=== PATIENT | male | born 1945 | race Caucasian/White ===

== ENCOUNTER → 2017-05-11 | Outpatient (CLI) | payer OTHER ==
[~2017-05-11] MED LIST: ESCI10TA17 PO; IBUP-1050 PO; NXM/40 PO; SIMV20TA2 PO
== END | disposition home or self-care (01) ==
LOC: C.LABSPEC 15:37
PROVIDERS: ATTEND Family Medicine
DX: Z12.11 Encounter for screening for malignant neoplasm of colon (principal)

== ENCOUNTER 2018-01-16 11:54 | Inpatient (IN) | payer OTHER ==
[~2018-01-16] VITALS: Ht 177.8 cm; Wt 79.9 kg
[2018-01-16] VITALS (17 sets, daily range): BP systolic 129–160; BP diastolic 53–83; PULSE 20–81; TEMP 36.4–37.1; O2SAT 71–100; Ht 177.8 cm; Wt 79.9 kg
[2018-01-16] MEDS ORDERED: ASPIRIN 81 MG CHEW PO STA (12:10)
[2018-01-16] MEDS ORDERED: ASPIRIN 81 MG CHEW ONE (12:10)
[2018-01-16] MEDS ORDERED: SODIUM CHLORIDE 0.9% 1000ML 500 ML IV STA (12:10)
[2018-01-16] MEDS ORDERED: NITROGLYCERIN 2% OINTMENT 30GM TUBE EXT ONE (12:15)
[2018-01-16 12:32] LABS: INR 1.2 (0.9-1.1); PTT PATIENT 26.2 SECONDS (21.0-31.0)
--- NOTE | 2018-01-16 12:34 | DIAGNOSTIC IMAGING REPORT ---
CHEST ONE VIEW PORTABLE CLINICAL HISTORY: Atypical chest pain COMPARISON STUDY: November 21, 2015 FINDINGS: The heart is at the upper limits of normal in size. There is borderline elevation of the right hemidiaphragm. There is no failure. There is no focal pulmonary consolidation. There are no pleural effusions.[ IMPRESSION: No active disease in the chest. Electronically signed by: Vahid Ross M.D. 01/16/2018 12:33 PM Dictated Date/Time: 01/16/2018 12:32 PM
[2018-01-16 12:41] LABS: ALBUMIN 3.5 gm/dl (3.4-5.0); CALCIUM 8.9 mg/dl (8.5-10.1); CREATININE 1.14 mg/dl (0.60-1.40); POTASSIUM 3.5 mmol/L (3.5-5.1)
[2018-01-16 12:42] LABS: TOTAL PROTEIN 7.9 gm/dl (6.4-8.2)
[2018-01-16 12:59] LABS: HEMATOCRIT 12.8 % (42-52); HEMOGLOBIN 4.3 g/dL (14.0-18.0); MEAN CELL VOLUME 111.3 fL (80-100); MEAN CORPUSCULAR HEMOGLOBIN 37.4 pg (25-34); MEAN CORPUSCULAR HGB CONC 33.6 g/dl (32-36); MEAN PLATELET VOLUME 9.8 fL (7.4-10.4); PLATELET COUNT 198 K/uL (130-400); RED CELL DISTRIBUTION WIDTH CV 20.3 % (11.5-14.5); RED CELL DISTRIBUTION WIDTH SD 80.1 fL (36.4-46.3); WHITE BLOOD COUNT 5.07 K/uL (4.8-10.8)
[2018-01-16] MEDS ORDERED: PANTOprazole INJ 80 MG in DEXTROSE 5% 100ML IV SCH (13:00)
[2018-01-16] MEDS ORDERED: ACETAMINOPHEN 500 MG TAB PO STA (13:07)
[2018-01-16] MEDS ORDERED: DiphenhydrAMINE HCL 50 MG/ML VIAL IV STA (13:07)
[2018-01-16] MEDS ORDERED: PANTOprazole INJ 40 MG in DEXTROSE 5% 100ML IV SCH ×2 (13:15→18:15)
[2018-01-16] MEDS ORDERED: ACETAMINOPHEN 325 MG TAB PO PRN (13:45)
[2018-01-16] MEDS ORDERED: ONDANSETRON INJ 2 MG/ML 2 ML VIAL IV PRN (13:45)
--- NOTE | 2018-01-16 14:36 | History and Physical ---
History & Physical Date & Time of Service: Jan 16, 2018 at 14:33 Chief Complaint: Pain In Chest Primary Care Physician: Carlin Dill D.O. History of Present Illness Source: patient, clinic records, hospital records Patient is a 72-year-old male with the PMH of anxiety, GERD and HLD who presents with intermittent chest pain over the past few weeks. Patient developed dry cough 3 weeks ago with associated low-grade fever. Was evaluated by urgent care last week and was told he had a URI. EKG was performed at this time and showed normal sinus rhythm without acute changes. Since then, patient has experienced SOB and lightheadedness with any type of exertion. Has also been experiencing associated chest pain with radiation down both arms. Describes pain as 9/10 in severity, sharp in character and intermittent. It goes away with rest. Denies any associated diaphoresis, nausea or vomiting. Denies any history of heart disease. In ED, patient was found to have a hemoglobin of 4.3. EKG shows ST depression in anterolateral leads, which is a new finding. Initial troponin negative. Denies any history of GI bleed. Patient thinks he has been told he has anemia in the past but is unsure. Does intermittently use Advil for MSK pain. Denies fever, chills, headache, visual changes, abdominal pain, nausea, vomiting, dysuria, melena, hematochezia or LE swelling. Follows with Dr. Dill of [facility] but is looking to establish care with [facility]. Past Medical/Surgical History Medical Problems: (1) Anxiety Status: Chronic (2) GERD (gastroesophageal reflux disease) Status: Chronic (3) HLD (hyperlipidemia) Status: Chronic Family History Diabetes mellitus Social History Smoking Status: Former Smoker Alcohol Use: occasionally Drug Use: none Marital Status: Housing status: lives with family Occupational Status: retired Immunizations History of Influenza Vaccine: Yes History of Tetanus Vaccine?: No History of Pneumococcal: No History of Hepatitis B Vaccine: Yes Allergies Coded Allergies: Cephalosporins (Verified Allergy, Unknown, CEPHALEXIN, 11/21/15) Tetanus Toxoid (Verified Allergy, Unknown, 11/21/15) Home Medications Scheduled Escitalopram (Lexapro), 10 MG PO DAILY Esomeprazole Magnesium (Nexium), 40 MG PO DAILY Simvastatin (Zocor), 20 MG PO QPM Review of Systems Ten systems reviewed and negative except as noted in the HPI. Physical Exam Vital Signs Date Time Temp Pulse Resp B/P (MAP) Pulse Ox O2 Delivery O2 Flow Rate FiO2 01/16/18 14:14 96 Room Air 01/16/18 13:09 79 18 146/67 96 Room Air 01/16/18 12:59 100 Room Air 01/16/18 12:09 92 01/16/18 12:05 95 Room Air 01/16/18 11:56 36.8 104 20 127/52 93 Room Air General Appearance: WD/WN, no apparent distress, + pertinent finding (pale) Head: normocephalic, atraumatic Eyes: normal inspection, PERRL, sclerae normal ENT: normal ENT inspection, hearing grossly normal, pharynx normal (moist mucous membranes ) Neck: supple, thyroid normal, trachea midline Respiratory/Chest: chest non-tender, lungs clear, normal breath sounds, no respiratory distress, no accessory muscle use Cardiovascular: regular rate, rhythm, no murmur, normal peripheral pulses Abdomen/GI: non tender, soft, no organomegaly Back: normal inspection Extremities/Musculoskelatal: normal inspection, no calf tenderness, no pedal edema Neurologic/Psych: no motor/sensory deficits, alert, normal mood/affect, oriented x 3 Skin: warm/dry, no rash, + pallor Diagnostics Laboratory Results Results Past 24 Hours Test 01/16/18 12:06 01/16/18 12:14 01/16/18 14:32 Range/Units White Blood Count 5.07 4.8-10.8 K/uL Red Blood Count 1.15 4.7-6.1 M/uL Hemoglobin 4.3 14.0-18.0 g/dL Hematocrit 12.8 42-52 % Mean Corpuscular Volume 111.3 80-100 fL Mean Corpuscular Hemoglobin 37.4 25-34 pg Mean Corpuscular Hemoglobin Concent 33.6 32-36 g/dl RDW Standard Deviation 80.1 36.4-46.3 fL RDW Coefficient of Variation 20.3 11.5-14.5 % Platelet Count 198 130-400 K/uL Mean Platelet Volume 9.8 7.4-10.4 fL Prothrombin Time 12.1 9.0-12.0 SECONDS Prothromb Time International Ratio 1.2 0.9-1.1 Activated Partial Thromboplast Time 26.2 21.0-31.0 SECONDS Partial Thromboplastin Ratio 1.0 Sodium Level 140 136-145 mmol/L Potassium Level 3.5 3.5-5.1 mmol/L Chloride Level 111 98-107 mmol/L Carbon Dioxide Level 23 21-32 mmol/L Anion Gap 6.0 3-11 mmol/L Blood Urea Nitrogen 23 7-18 mg/dl Creatinine 1.14 0.60-1.40 mg/dl Est Creatinine Clear Calc Drug Dose 58.7 ml/min Estimated GFR () 73.0 Estimated GFR (Non- 63.0 BUN/Creatinine Ratio 20.5 10-20 Random Glucose 143 70-99 mg/dl Calcium Level 8.9 8.5-10.1 mg/dl Magnesium Level 2.0 1.8-2.4 mg/dl Total Bilirubin 0.6 0.2-1 mg/dl Aspartate Amino Transf (AST/SGOT) 18 15-37 U/L Alanine Aminotransferase (ALT/SGPT) 17 12-78 U/L Alkaline Phosphatase 124 45-117 U/L Total Protein 7.9 6.4-8.2 gm/dl Albumin 3.5 3.4-5.0 gm/dl Globulin 4.4 2.5-4.0 gm/dl Albumin/Globulin Ratio 0.8 0.9-2 Lipase 116 73-393 U/L Bedside Troponin I < 0.030 0-0.045 ng/ml Diagnostic Radiology CXR: IMPRESSION: No active disease in the chest. EKG Sinus tachycardia. Marked ST abnormality, possible anterolateral subendocardial injury. When compared with ECG of 21-NOV-2015 09:10, ST now depressed in Anterolateral leads, T wave inversion now evident in Anterior leads, QT has lengthened Impression Assessment and Plan Patient is a 72-year-old male with the PMH of anxiety, GERD and HLD who presents with intermittent chest pain over the past few weeks. Severe anemia: -Likely 2/2 upper GI bleed, underlying macrocytic anemia -Hgb of 4.3 today. Unknown baseline hgb -Denies any known blood loss -Occasional ibuprofen use -Protonix bolus & drip -Type & crossed. Transfuse 4 units prbcs -Serial H&Hs -GI consulted -Macrocytic anemia workup in process -Clear liquid diet Chest pain: -Intermittent, present with exertion -Likely demand ischemia 2/2 profound anemia -EKG with acute anterolateral ST depression -Initial troponin negative -Trend serial cardiac enzymes -CXR without acute process -Repeat EKG in AM or with CP -Telemetry Anxiety: -Stable -Cont lexapro HLD: -Cont statin Ordered to obtain records from PCP. DVT Ppx: SCDs Code status: FULL PCP: Fuentes ([facility]) Dispo: Admit to telemetry. Plan to return home once medically stable. Patient seen in collaboration with Dr. Ibanez. Please see addendum. I have seen and examined the patient and agree with the assessment and plan as above. Shamar, DO Sinus tachycardia. Marked ST abnormality, possible anterolateral subendocardial injury. When compared with ECG of 21-NOV-2015 09:10, ST now depressed in Anterolateral leads, T wave inversion now evident in Anterior leads, QT has lengthened Advanced Directives Existing Living Will: Yes Existing Power of Primary Substance Abuse Counselor: Yes Resuscitation Status VTE Prophylaxis Will order VTE Prophylaxis: Yes
--- NOTE | 2018-01-16 15:39 | EMERGENCY ROOM VISIT NOTE ---
History Report prepared by Chantelle: Slim Smiley Under the Supervision of: Dr. Andrew Pierce M.D. First contact with patient: 12:04 Chief Complaint: CHEST PAIN Stated Complaint: PAIN IN CHEST History of Present Illness The patient is a 72 year old male who presents to the Emergency Room with complaints of intermittent chest pain beginning last week. The patient's symptoms began with a cough three weeks ago. He states that his cough has improved. He also complains of shortness of breath with exertion. The patient states that his chest pain is present with exertion. He rates his pain as a 9/ 10 in severity when present. He states that his pain often radiates down both of his arms. The patient denies black or bloody stool, fevers, vomiting, nausea , or diaphoresis. The patient's family notes the the patient appears very pale. The patient notes that he had an ECG at an urgent care center last week which was normal. He has a history of GERD and anxiety. Source of History: patient Onset: Last week Position: chest Symptom Intensity: 9/10 Timing: intermittent Modifying Factors (Worsening): exertion Associated Symptoms: + cough (x3 weeks, improving), + SOB, No fevers, No diaphoresis, No vomiting, No melena, No hematochezia Review of Systems See HPI for pertinent positives & negatives. A total of 10 systems reviewed and were otherwise negative. Past Medical & Surgical Medical Problems: (1) Anxiety (2) GERD (gastroesophageal reflux disease) (3) HLD (hyperlipidemia) (4) Hypokalemia (5) Influenza-like symptoms (6) Influenza-like symptoms Family History No significant family history Social History Smoking Status: Never Smoker Alcohol Use: occasionally Drug Use: none Marital Status: Housing Status: lives alone Occupation Status: retired Current/Historical Medications Scheduled Escitalopram (Lexapro), 10 MG PO DAILY Esomeprazole Magnesium (Nexium), 40 MG PO DAILY Simvastatin (Zocor), 20 MG PO QPM Allergies Coded Allergies: Cephalosporins (Verified Allergy, Unknown, CEPHALEXIN, 11/21/15) Tetanus Toxoid (Verified Allergy, Unknown, 11/21/15) Physical Exam Vital Signs Date Time Temp Pulse Resp B/P (MAP) Pulse Ox O2 Delivery O2 Flow Rate FiO2 01/16/18 13:09 79 18 146/67 96 Room Air 01/16/18 12:59 100 Room Air 01/16/18 12:09 92 01/16/18 12:05 95 Room Air 01/16/18 11:56 36.8 104 20 127/52 93 Room Air Physical Exam GENERAL: Patient is in no acute distress. HEENT: No acute trauma, normocephalic atraumatic, mucous membranes moist, no nasal congestion, no scleral icterus. NECK: No stridor, no adenopathy, no meningismus, trachea is midline. LUNGS: Clear to auscultation bilaterally, no wheeze, no rhonchi, breath sounds equal. HEART: Tachycardic with a regular rhythm. No murmurs. ABDOMEN: Soft, nontender, bowel sounds positive, no hernias, no peritonitis. RECTAL: Brown, Heme negative stool. EXTREMITIES: No cyanosis or edema, full range of motion of all the joints without pain or difficulty, no signs for acute trauma. NEUROLOGIC: Oriented x 3, no acute motor or sensory deficits, no focal weakness. SKIN: No rash, no jaundice, no diaphoresis. Quite pale. Medical Decision & Procedures ER Provider Diagnostic Interpretation: Radiology results as stated below per my review and radiologist interpretation: CHEST ONE VIEW PORTABLE FINDINGS: The heart is at the upper limits of normal in size. There is borderline elevation of the right hemidiaphragm. There is no failure. There is no focal pulmonary consolidation. There are no pleural effusions.[ IMPRESSION: No active disease in the chest. Electronically signed by: Vahid Ross M.D. 01/16/2018 12:33 PM Laboratory Results 01/16/18 12:06 01/16/18 12:06 Test 01/16/18 12:06 01/16/18 12:14 Red Blood Count 1.15 M/uL (4.7-6.1) Mean Corpuscular Volume 111.3 fL (80-100) Mean Corpuscular Hemoglobin 37.4 pg (25-34) Mean Corpuscular Hemoglobin Concent 33.6 g/dl (32-36) RDW Standard Deviation 80.1 fL (36.4-46.3) RDW Coefficient of Variation 20.3 % (11.5-14.5) Mean Platelet Volume 9.8 fL (7.4-10.4) Peripheral Blood Smear Path Consult Absolute Reticulocyte Count 0.01 10^6/uL (0.02-0.10) Percent Reticulocyte Count 1.1 % (0.5-2.0) Prothrombin Time 12.1 SECONDS (9.0-12.0) Prothromb Time International Ratio 1.2 (0.9-1.1) Activated Partial Thromboplast Time 26.2 SECONDS (21.0-31.0) Partial Thromboplastin Ratio 1.0 Anion Gap 6.0 mmol/L (3-11) Est Creatinine Clear Calc Drug Dose 58.7 ml/min Estimated GFR () 73.0 Estimated GFR (Non- 63.0 BUN/Creatinine Ratio 20.5 (10-20) Calcium Level 8.9 mg/dl (8.5-10.1) Magnesium Level 2.0 mg/dl (1.8-2.4) Iron Level 188 mcg/dl (35-175) Transferrin 202 mg/dl (200-360) Transferrin % Saturation 67 % (20-50) Ferritin 1143.3 ng/ml (8.0-388.0) Total Bilirubin 0.6 mg/dl (0.2-1) Aspartate Amino Transf (AST/SGOT) 18 U/L (15-37) Alanine Aminotransferase (ALT/SGPT) 17 U/L (12-78) Alkaline Phosphatase 124 U/L (45-117) Troponin I < 0.015 ng/ml (0-0.045) Total Protein 7.9 gm/dl (6.4-8.2) Albumin 3.5 gm/dl (3.4-5.0) Globulin 4.4 gm/dl (2.5-4.0) Albumin/Globulin Ratio 0.8 (0.9-2) Lipase 116 U/L (73-393) Bedside Troponin I < 0.030 ng/ml (0-0.045) Laboratory results reviewed by me. Medications Administered Medications (Trade) Dose Ordered Sig/Jesica Route Start Time Stop Time Status Last Admin Dose Admin Aspirin (Aspirin Chew) 324 mg STK-MED ONCE .ROUTE 01/16/18 12:10 01/16/18 12:11 DC 01/16/18 12:10 324 MG Sodium Chloride 500 ml @ 999 mls/hr Q31M STAT IV 01/16/18 12:10 01/16/18 12:41 DC 01/16/18 12:10 999 MLS/HR Nitroglycerin (Nitroglycerin 2% Oint) 1 inch NOW ONCE EXT 01/16/18 12:15 01/16/18 12:16 DC 01/16/18 12:16 1 INCH Pantoprazole Sodium 80 mg/ Dextrose 120 ml @ 480 mls/hr TODAY@1300 IV 01/16/18 13:00 01/16/18 13:14 DC 01/16/18 13:04 480 MLS/HR Pantoprazole Sodium 40 mg/ Dextrose 100 ml @ 20 mls/hr Q5H IV 01/16/18 13:15 01/16/18 18:14 01/16/18 13:20 20 MLS/HR Diphenhydramine HCl (Benadryl Inj) 25 mg NOW STAT IV 01/16/18 13:07 01/16/18 13:09 DC 01/16/18 13:20 25 MG Acetaminophen (Tylenol Tab) 500 mg NOW STAT PO 01/16/18 13:07 01/16/18 13:09 DC 01/16/18 13:20 500 MG ECG Per My Interpretation Indication: chest pain Rate (beats per minute): 104 Rhythm: sinus tachycardia Findings: ST depression (Anterolateral), other (No PVCs. ) Comparison ECG Date: 11/21/2015 Change: ST depressions are new. ED Course 1205: The patient was evaluated in room C12B. A complete history and physical exam was performed. 1210: Ordered Aspirin Chew 324 mg PO, Sodium Chloride 500 ml @ 999 mls/hr IV . 1215: Ordered Nitroglycerin 2% Oint 1 inch EXT. 1300: Ordered Pantoprazole Sodium 80 mg/Dextrose 120 mL @ 480 mL/hr IV. 1307: Ordered Tylenol Tab 500 mg PO, Benadryl Inj 25 mg IV. 1320: Upon reexamination the patient is resting comfortably. I discussed results and treatment plan with the patient. He verbalizes agreement and understanding. He consents to blood transfusion. I spoke with Lauren Lambert PA-C of the [facility] Hospitalist Service. We discussed the patient's results and findings. The patient will be evaluated by [facility] for further management. Medical Decision The patient is a 72 year old male who presents to the ED with complaints of chest pain. Differential diagnoses considered include anemia, GI bleed, anemia , MN, pneumonia, CHF, and PE. There is no leukocytosis. Hemoglobin is quite low at around 4. No significant electrolyte abnormality, kidney failure or hepatitis. No coagulopathy. EKG shows a sinus tachycardia with ST depressions in the anterior and lateral leads. No evidence for acute MN. Cardiac enzyme testing 1 is not consistent with acute cardiac injury. Chest film does not show pneumonia, pneumothorax or mediastinal widening. Rectal exam showed brown stool that was heme negative. Patient received IV saline, he was given oral aspirin and Nitropaste. He received IV Protonix. He was ordered for 2 units of blood to be given in the ED , 4 units of blood ordered in total. He was given oral Tylenol and IV Benadryl as premedication for the blood transfusions. The patient presents with some dyspnea and chest pain on exertion. He was quite anemic. He had EKG changes. He does require a hospital stay. He needs a blood transfusion. The reason for the anemia at this point is not clear. I did speak with the patient and the on-call hospitalist. Case management has been involved. Medication Reconcilliation Current Medication List: was personally reviewed by me Blood Pressure Screening Patient's blood pressure: Normal blood pressure Blood pressure disposition: Did not require urgent referral Consults Time Called: 1315 Consulting Physician: Lauren Norman Hospitalist Returned Call: 1320 Discussed the patient's case. The patient will be evaluated for further management. Impression Primary Impression: Precordial chest pain Additional Impressions: SOB (shortness of breath) Acute electrocardiogram changes Anemia Critical Care I have personally spent greater than 35 minutes of critical care time in the direct management of this patient. This includes bedside care, interpretation of diagnostic studies, and testing, discussion with consultants, patient, and family members, and other required patient management activities. This 35 minutes is in excess of all separately billable procedures. Scribe Attestation The scribe's documentation has been prepared under my direction and personally reviewed by me in its entirety. I confirm that the note above accurately reflects all work, treatment, procedures, and medical decision making performed by me. Departure Information Dispostion Being Evaluated By Hospitalist Referrals Carlin Dill D.O. (PCP) Patient Instructions My [facility] Problem Qualifiers
[2018-01-16 16:07] LABS: RETIC COUNT % 1.1 % (0.5-2.0)
--- NOTE | 2018-01-16 16:49 | Gastrointestinal Consultation ---
Gastrointestinal Consultation Date of Consultation: Jan 16, 2018 Attending Physician: Dr Shala Ibanez Consulting Physician: DR Mekhi Mejia Reason for Consultation: anemia, possible GI bleeding History of Present Illness Patient is a 72 year old male admitted with chief complaint of shortness of breath and chest pain. Pt with hx of anemia and had colonoscopy by DR Monalisa Guardado saw reviewing [facility] 04/2016 with 5 polyps largest 13 mm path tubular adenoma. Pt over last 2 weeks with sob and more recently cp. Came to ER and noted to have EKG changes. . NO abd pain.No melena.NO red blood in stool. NO change in bowels. Hgb today in ER 4.3 macrocytic and stool brown and heme neg in ER. He is taking Motrin once daily Past Medical/Surgical History Medical Problems: (1) Acute electrocardiogram changes Status: Acute (2) Anemia Status: Acute (3) Precordial chest pain Status: Acute (4) SOB (shortness of breath) Status: Acute Family History Diabetes mellitus Social History Smoking Status: Never Smoker Alcohol Use: occasionally Drug Use: none Marital Status: Housing Status: lives alone Occupation Status: retired Allergies Coded Allergies: Cephalosporins (Verified Allergy, Unknown, CEPHALEXIN, 11/21/15) Tetanus Toxoid (Verified Allergy, Unknown, 11/21/15) Current Medications Home Meds and Scripts Medications Dose Route/Sig Max Daily Dose Days Date Category Zocor (Simvastatin) 20 Mg Tab 20 Mg PO QPM 11/21/15 Reported Lexapro (Escitalopram Oxalate) 10 Mg Tab 10 Mg PO DAILY 11/21/15 Reported Nexium (Esomeprazole Magnesium) 40 Mg Capcr 40 Mg PO DAILY 11/21/15 Reported Review of Systems see HPI. Otherwise 10 ROS negative. Physical Exam Date Time Temp Pulse Resp B/P (MAP) Pulse Ox O2 Delivery O2 Flow Rate FiO2 01/16/18 15:32 36.8 75 16 160/83 100 01/16/18 15:11 36.8 81 16 144/64 100 01/16/18 14:56 75 95 144/65 96 01/16/18 14:41 74 18 129/61 94 01/16/18 14:36 77 18 148/53 95 01/16/18 14:14 96 Room Air 01/16/18 13:09 79 18 146/67 96 Room Air 01/16/18 12:59 100 Room Air 01/16/18 12:09 92 01/16/18 12:05 95 Room Air 01/16/18 11:56 36.8 104 20 127/52 93 Room Air General Appearance: WD/WN, no apparent distress Eyes: normal inspection, PERRL ENT: hearing grossly normal, pharynx normal Neck: supple, trachea midline Respiratory/Chest: lungs clear, no respiratory distress Cardiovascular: regular rate, rhythm, no edema Abdomen: normal bowel sounds, non tender, soft, no organomegaly Neurologic/Psych: broadcast meteorologist II-XII nml as tested, normal mood/affect, oriented x 3 Skin: normal color Laboratory Results Last 24 Hours Test 01/16/18 12:06 01/16/18 12:14 01/16/18 14:45 White Blood Count 5.07 K/uL Red Blood Count 1.15 M/uL Hemoglobin 4.3 g/dL Hematocrit 12.8 % Mean Corpuscular Volume 111.3 fL Mean Corpuscular Hemoglobin 37.4 pg Mean Corpuscular Hemoglobin Concent 33.6 g/dl RDW Standard Deviation 80.1 fL RDW Coefficient of Variation 20.3 % Platelet Count 198 K/uL Mean Platelet Volume 9.8 fL Absolute Reticulocyte Count 0.01 10^6/uL Percent Reticulocyte Count 1.1 % Prothrombin Time 12.1 SECONDS Prothromb Time International Ratio 1.2 Activated Partial Thromboplast Time 26.2 SECONDS Partial Thromboplastin Ratio 1.0 Sodium Level 140 mmol/L Potassium Level 3.5 mmol/L Chloride Level 111 mmol/L Carbon Dioxide Level 23 mmol/L Anion Gap 6.0 mmol/L Blood Urea Nitrogen 23 mg/dl Creatinine 1.14 mg/dl Est Creatinine Clear Calc Drug Dose 58.7 ml/min Estimated GFR () 73.0 Estimated GFR (Non- 63.0 BUN/Creatinine Ratio 20.5 Random Glucose 143 mg/dl Calcium Level 8.9 mg/dl Magnesium Level 2.0 mg/dl Total Bilirubin 0.6 mg/dl Aspartate Amino Transf (AST/SGOT) 18 U/L Alanine Aminotransferase (ALT/SGPT) 17 U/L Alkaline Phosphatase 124 U/L Troponin I < 0.015 ng/ml Total Protein 7.9 gm/dl Albumin 3.5 gm/dl Globulin 4.4 gm/dl Albumin/Globulin Ratio 0.8 Lipase 116 U/L Bedside Troponin I < 0.030 ng/ml Impression Macrocytic anemia hx of tubular adenoma colon polyps last colo 04/2016 elevated alk phos mild--follow. Pt with no active bleeding at present so no need for protonix drip. Will give po protonix since taking Motrin and could have PUD. Needs blood rescuscitated and ruled out for PA. If his anemia were from slow GI blood loss which it would need to be to have no signs of bloody or black stools then MCV should be low with low Fe sat and ferritin. Fe sat and ferritin added to blood drawn today prior to transfusion. B12 and folate ordered. NO immediate plans for endscopy until cardiac status is stable and see what Fe studies show.
[2018-01-16] MEDS: SIMVASTATIN 20 MG TAB PO SCH (20:21)
[2018-01-16] MEDS ORDERED: NURSING VERBAL MED ORDER ONE (23:00)
[2018-01-16] MEDS ORDERED: COUGH DROP (SUGAR FREE) LOZ 24 LOZ/1 BOX LOZ PRN (23:00)
[2018-01-17] VITALS (17 sets, daily range): BP systolic 118–146; BP diastolic 61–92; PULSE 65–91; TEMP 36.5–37; O2SAT 92–100
[2018-01-17 05:09] LABS: ALBUMIN 3.1 gm/dl (3.4-5.0); CALCIUM 8.2 mg/dl (8.5-10.1); CREATININE 1.02 mg/dl (0.60-1.40); POTASSIUM 3.5 mmol/L (3.5-5.1)
[2018-01-17 05:12] LABS: TOTAL PROTEIN 6.9 gm/dl (6.4-8.2)
[2018-01-17 05:16] LABS: HEMATOCRIT 20.2 % (42-52); HEMOGLOBIN 6.8 g/dL (14.0-18.0); MEAN CELL VOLUME 96.2 fL (80-100); MEAN CORPUSCULAR HEMOGLOBIN 32.4 pg (25-34); MEAN CORPUSCULAR HGB CONC 33.7 g/dl (32-36); MEAN PLATELET VOLUME 9.7 fL (7.4-10.4); PLATELET COUNT 146 K/uL (130-400); RED CELL DISTRIBUTION WIDTH CV 22.4 % (11.5-14.5); WHITE BLOOD COUNT 3.67 K/uL (4.8-10.8)
[2018-01-17 05:31] LABS: BASO % 0.3 %; BASO ABS # 0.01 K/uL (0-0.2); EOS % 1.4 %; EOS ABS # 0.05 K/uL (0-0.5); IG# 0.18 K/uL (0.00-0.02); LYMPH % 21.3 %; LYMPH ABS # 0.78 K/uL (1.2-3.4); MONO ABS # 0.77 K/uL (0.11-0.59); NEUT % 51.1 %; NEUT ABS # 1.88 K/uL (1.4-6.5)
[2018-01-17] MEDS: PANTOprazole SOD 40 MG TAB PO SCH (08:46)
[2018-01-17] MEDS: ESCITALOPRAM OXALATE 10 MG TAB PO SCH (08:46)
--- NOTE | 2018-01-17 09:10 | Progress Note ---
Internal Med Progress Note Date of Service: Jan 17, 2018. Provider Documentation: SUBJECTIVE: Seen and examined at bedside Denies any chest pain, SOB, dizziness, nausea, abdominal pain Denies any bleeding issues, black stools No other complaints OBJECTIVE: Vital Signs-as noted below Physical Exam: General Appearance:Moderately built and nourished, no apparent distress Head: normocephalic, Atraumatic Eyes: normal inspection, EOMI, PERRL Neck: supple, Trachea midline Respiratory/Chest: Normal breath sounds, CTA Cardiovascular: S1, S2, No murmur Abdomen/GI:Soft, Non tender, Bowel sounds present Extremities/Musculoskelatal:normal inspection, no edema Neurologic/Psych:AAOX3, grossly no focal neurological deficits Skin: normal color, warm Lab data as noted below. ASSESSMENT & PLAN: Patient is a 72 yr male with the PMH of anxiety, GERD and HLD who presents with intermittent chest pain over the past few weeks. Severe macrocytic anemia: No obvious source of bleeding Hb: 6.8 today S/P 4 units PRBCs Occasional ibuprofen use Continue Protonix Monitor H&H GI following Avoid NSAIDs B12, Folate levels normal Ferritin high Will consult Oncology May need Bone marrow biopsy to R/O MDS Atypical Chest pain: Intermittent, present with exertion Likely demand ischemia 2/2 profound anemia Presented with anterolateral ST depression EKG changes normalized Troponin X3: Negative No chest pain currently Check ECHO Cardiology consulted Anxiety: Stable Continue lexapro HLD: Continue statin DVT Px: SCDs Code status: Full Code Disposition: Monitor in Telemetry Vital Signs: Date Time Temp Pulse Resp B/P (MAP) Pulse Ox O2 Delivery O2 Flow Rate FiO2 01/17/18 07:07 36.8 73 20 142/92 (109) 93 Room Air 01/17/18 06:47 36.7 73 16 136/69 98 01/17/18 06:38 36.9 91 18 119/70 94 01/17/18 04:00 Room Air 01/17/18 02:29 16 142/82 96 01/17/18 02:04 36.9 74 18 142/82 92 01/17/18 00:45 36.9 71 16 138/66 92 01/17/18 00:15 37.0 72 18 143/68 92 01/17/18 00:01 73 143/72 01/17/18 00:01 Room Air 01/16/18 23:52 36.9 74 16 155/73 92 01/16/18 23:38 37.1 20 20 155/73 (100) 93 Room Air 01/16/18 22:04 36.7 70 16 138/66 94 01/16/18 21:43 36.8 01/16/18 21:35 16 151/79 71 01/16/18 20:32 36.8 73 16 146/75 98 01/16/18 20:00 Room Air 01/16/18 19:30 36.4 71 18 143/69 94 01/16/18 19:00 36.7 69 18 152/66 95 01/16/18 18:27 36.8 77 16 155/64 97 01/16/18 18:12 36.8 78 16 149/65 96 01/16/18 16:02 36.9 76 16 144/80 96 01/16/18 15:32 36.8 75 16 160/83 100 01/16/18 15:11 36.8 81 16 144/64 100 01/16/18 14:56 75 95 144/65 96 01/16/18 14:41 74 18 129/61 94 01/16/18 14:36 77 18 148/53 95 01/16/18 14:14 96 Room Air 01/16/18 13:09 79 18 146/67 96 Room Air 01/16/18 12:59 100 Room Air 01/16/18 12:09 92 01/16/18 12:05 95 Room Air 01/16/18 11:56 36.8 104 20 127/52 93 Room Air Lab Results: Results Past 24 Hours Test 01/16/18 12:06 01/16/18 12:14 01/16/18 18:08 01/16/18 22:52 Range/Units White Blood Count 5.07 4.8-10.8 K/uL Red Blood Count 1.15 4.7-6.1 M/uL Hemoglobin 4.3 14.0-18.0 g/dL Hematocrit 12.8 42-52 % Mean Corpuscular Volume 111.3 80-100 fL Mean Corpuscular Hemoglobin 37.4 25-34 pg Mean Corpuscular Hemoglobin Concent 33.6 32-36 g/dl RDW Standard Deviation 80.1 36.4-46.3 fL RDW Coefficient of Variation 20.3 11.5-14.5 % Platelet Count 198 130-400 K/uL Mean Platelet Volume 9.8 7.4-10.4 fL Peripheral Blood Smear Path Consult Absolute Reticulocyte Count 0.01 0.02-0.10 10^6/uL Percent Reticulocyte Count 1.1 0.5-2.0 % Prothrombin Time 12.1 9.0-12.0 SECONDS Prothromb Time International Ratio 1.2 0.9-1.1 Activated Partial Thromboplast Time 26.2 21.0-31.0 SECONDS Partial Thromboplastin Ratio 1.0 Sodium Level 140 136-145 mmol/L Potassium Level 3.5 3.5-5.1 mmol/L Chloride Level 111 98-107 mmol/L Carbon Dioxide Level 23 21-32 mmol/L Anion Gap 6.0 3-11 mmol/L Blood Urea Nitrogen 23 7-18 mg/dl Creatinine 1.14 0.60-1.40 mg/dl Est Creatinine Clear Calc Drug Dose 58.7 ml/min Estimated GFR () 73.0 Estimated GFR (Non- 63.0 BUN/Creatinine Ratio 20.5 10-20 Random Glucose 143 70-99 mg/dl Calcium Level 8.9 8.5-10.1 mg/dl Magnesium Level 2.0 1.8-2.4 mg/dl Iron Level 188 35-175 mcg/dl Transferrin 202 200-360 mg/dl Transferrin % Saturation 67 20-50 % Ferritin 1143.3 8.0-388.0 ng/ml Total Bilirubin 0.6 0.2-1 mg/dl Aspartate Amino Transf (AST/SGOT) 18 15-37 U/L Alanine Aminotransferase (ALT/SGPT) 17 12-78 U/L Alkaline Phosphatase 124 45-117 U/L Troponin I < 0.015 < 0.015 0-0.045 ng/ml Total Protein 7.9 6.4-8.2 gm/dl Albumin 3.5 3.4-5.0 gm/dl Globulin 4.4 2.5-4.0 gm/dl Albumin/Globulin Ratio 0.8 0.9-2 Lipase 116 73-393 U/L Bedside Troponin I < 0.030 0-0.045 ng/ml Vitamin B12 Level 479 211-911 pg/mL Folate 8.17 >5.38 ng/mL Test 01/17/18 04:20 01/17/18 08:51 Range/Units White Blood Count 3.67 4.8-10.8 K/uL Red Blood Count 2.10 4.7-6.1 M/uL Hemoglobin 6.8 14.0-18.0 g/dL Hematocrit 20.2 42-52 % Mean Corpuscular Volume 96.2 80-100 fL Mean Corpuscular Hemoglobin 32.4 25-34 pg Mean Corpuscular Hemoglobin Concent 33.7 32-36 g/dl Platelet Count 146 130-400 K/uL Mean Platelet Volume 9.7 7.4-10.4 fL Neutrophils (%) (Auto) 51.1 % Lymphocytes (%) (Auto) 21.3 % Monocytes (%) (Auto) 21.0 % Eosinophils (%) (Auto) 1.4 % Basophils (%) (Auto) 0.3 % Neutrophils # (Auto) 1.88 1.4-6.5 K/uL Lymphocytes # (Auto) 0.78 1.2-3.4 K/uL Monocytes # (Auto) 0.77 0.11-0.59 K/uL Eosinophils # (Auto) 0.05 0-0.5 K/uL Basophils # (Auto) 0.01 0-0.2 K/uL RDW Standard Deviation 75.0 36.4-46.3 fL RDW Coefficient of Variation 22.4 11.5-14.5 % Immature Granulocyte % (Auto) 4.9 % Immature Granulocyte # (Auto) 0.18 0.00-0.02 K/uL Large Platelets 1+ Anisocytosis PRESENT Sodium Level 139 136-145 mmol/L Potassium Level 3.5 3.5-5.1 mmol/L Chloride Level 111 98-107 mmol/L Carbon Dioxide Level 24 21-32 mmol/L Anion Gap 4.0 3-11 mmol/L Blood Urea Nitrogen 15 7-18 mg/dl Creatinine 1.02 0.60-1.40 mg/dl Est Creatinine Clear Calc Drug Dose 65.6 ml/min Estimated GFR () 83.5 Estimated GFR (Non- 72.1 BUN/Creatinine Ratio 14.6 10-20 Random Glucose 107 70-99 mg/dl Calcium Level 8.2 8.5-10.1 mg/dl Magnesium Level 1.8 1.8-2.4 mg/dl Total Bilirubin 0.8 0.2-1 mg/dl Aspartate Amino Transf (AST/SGOT) 20 15-37 U/L Alanine Aminotransferase (ALT/SGPT) 17 12-78 U/L Alkaline Phosphatase 105 45-117 U/L Troponin I 0.020 0-0.045 ng/ml Total Protein 6.9 6.4-8.2 gm/dl Albumin 3.1 3.4-5.0 gm/dl Globulin 3.8 2.5-4.0 gm/dl Albumin/Globulin Ratio 0.8 0.9-2
[2018-01-17] MEDS ORDERED: FUROSEMIDE INJ 10 MG in SYRINGE 0 ML IV SCH (09:45)
[2018-01-17] MEDS ORDERED: METOPROLOL TARTRATE 25 MG TAB PO ONE (09:45)
--- NOTE | 2018-01-17 10:36 | ECHOCARDIOGRAM REPORT ---
*NOTICE TO RECEIVING LIBERTARIAN AGENCY This information is strictly Confidential and protected under [place] law. [place] law prohibits you from making any further disclosure of this information unless further disclosure is expressly permitted by the written consent of the person to whom it pertains or is authorized by law. A general authorization for the release of medical or other information is not sufficient for this purpose. Hospital accepts no responsibility if the information is made available to any other person, INCLUDING THE PATIENT. Interpretation Summary * Name: AGUSTINA BROOKS Study Date: 01/17/2018 09:46 AM BP: 142/92 mmHg * Patient Location: C.2E\S\E204\S\1 HR: 75 * : 1945 (M/d/yyyy) Gender: Male Height: 70 in * Age: 72 yrs Ethnicity: CA Weight: 178 lb * Ordering Physician: Mingo Giordano * Referring Physician: Self, Referred * Performed By: Faina Crouch RCS * * Reason For Study: S-T CHANGES ON INITIAL EKG * BSA: 2.0 m2 * -- Conclusions -- * The left ventricle is normal in size. * There is normal left ventricular wall thickness. * The left ventricular wall motion is normal. * Left ventricular systolic function is normal. * Ejection Fraction = 60-65%. * Aortic valve sclerosis mild, without significant aortic valvular stenosis. * There is mild to moderate mitral regurgitation. * There is trace tricuspid regurgitation. * Right ventricular systolic pressure is elevated at 40-50mmHg. Procedure Details * A complete two-dimensional transthoracic echocardiogram was performed (2D, M-mode, Doppler and color flow Doppler). Left Ventricle * The left ventricle is normal in size. * There is normal left ventricular wall thickness. * Left ventricular systolic function is normal. * Ejection Fraction = 60-65%. * The left ventricular wall motion is normal. Right Ventricle * The right ventricle is normal in size and function. Atria * The left atrium is borderline dilated. * Right atrial size is normal. * No ASD detected; PFO is not assessed. Mitral Valve * The mitral valve anatomy is normal. * There is no mitral valve stenosis. * There is mild to moderate mitral regurgitation. Tricuspid Valve * The tricuspid valve anatomy is normal. * There is no tricuspid stenosis. * There is trace tricuspid regurgitation. * Right ventricular systolic pressure is elevated at 40-50mmHg. Aortic Valve * The aortic valve is trileaflet. * Aortic valve sclerosis mild, without significant aortic valvular stenosis. * No aortic regurgitation is present. Pulmonic Valve * The pulmonic valve is not well visualized. Great Vessels * The aortic root is normal size. Pericardium/Pleural * There is no pericardial effusion. Great Vessels * The inferior vena cava is mildly dilated. MMode 2D Measurements and Calculations IVSd 1.2 cm IVSs 1.6 cm LVIDd 4.9 cm LVIDs 3.4 cm LVPWd 1.1 cm LVPWs 1.4 cm IVS/LVPW 1.2 FS 32.1 % EDV(Teich) 115.0 ml ESV(Teich) 45.9 ml EF(Teich) 60.1 % EDV(cubed) 120.6 ml ESV(cubed) 37.7 ml EF(cubed) 68.8 % % IVS thick 24.7 % % LVPW thick 27.0 % LV mass(C)d 217.8 grams LV mass(C)dI 109.7 grams/m\S\2 LV mass(C)s 173.5 grams LV mass(C)sI 87.3 grams/m\S\2 SV(Teich) 69.2 ml SI(Teich) 34.8 ml/m\S\2 SV(cubed) 82.9 ml SI(cubed) 41.8 ml/m\S\2 Ao root diam 3.2 cm Ao root area 7.8 cm\S\2 ACS 1.7 cm LA dimension 4.4 cm LA/Ao 1.4 LVOT diam 2.0 cm LVOT area 3.2 cm\S\2 LVAd ap4 29.2 cm\S\2 LVLd ap4 7.5 cm EDV(MOD-sp4) 92.1 ml EDV(sp4-el) 96.6 ml LVAs ap4 19.0 cm\S\2 LVLs ap4 6.7 cm ESV(MOD-sp4) 44.6 ml ESV(sp4-el) 45.7 ml EF(MOD-sp4) 51.6 % EF(sp4-el) 52.7 % LVAd ap2 40.7 cm\S\2 LVLd ap2 9.1 cm EDV(MOD-sp2) 148.4 ml EDV(sp2-el) 154.8 ml LVAs ap2 23.8 cm\S\2 LVLs ap2 6.9 cm ESV(MOD-sp2) 67.0 ml ESV(sp2-el) 69.8 ml EF(MOD-sp2) 54.8 % EF(sp2-el) 54.9 % LVLd %diff 17.5 % EDV(MOD-bp) 128.2 ml LVLs %diff 2.5 % ESV(MOD-bp) 55.4 ml EF(MOD-bp) 56.8 % SV(MOD-sp4) 47.5 ml SI(MOD-sp4) 23.9 ml/m\S\2 SV(MOD-sp2) 81.4 ml SI(MOD-sp2) 41.0 ml/m\S\2 SV(MOD-bp) 72.8 ml SI(MOD-bp) 36.6 ml/m\S\2 SV(sp4-el) 50.9 ml SI(sp4-el) 25.6 ml/m\S\2 SV(sp2-el) 84.9 ml SI(sp2-el) 42.8 ml/m\S\2 Doppler Measurements and Calculations MV E max matthew 69.2 cm/sec MV A max matthew 33.3 cm/sec MV E/A 2.1 MV P1/2t max matthew 142.3 cm/sec MV P1/2t 55.4 msec MVA(P1/2t) 4.0 cm\S\2 MV dec slope 752.3 cm/sec\S\2 MV dec time 0.23 sec Ao V2 max 140.8 cm/sec Ao max PG 7.9 mmHg Ao max PG (full) 4.0 mmHg [place](V,A) 2.2 cm\S\2 [place](V,D) 2.2 cm\S\2 LV V1 max PG 4.0 mmHg LV V1 max 99.4 cm/sec MR max matthew 464.4 cm/sec MR max PG 86.8 mmHg PA V2 max 101.9 cm/sec PA max PG 4.2 mmHg PI max matthew 185.8 cm/sec PI max PG 13.8 mmHg PI dec slope 313.3 cm/sec\S\2 PI P1/2t 173.7 msec TR max matthew 312.7 cm/sec
--- NOTE | 2018-01-17 12:55 | CARDIOLOGY CONSULTATION ---
DATE OF CONSULTATION: 01/17/2018 REFERRING PHYSICIAN: Dr. Ibanez. PRIMARY CARE PHYSICIAN: Dr. Dill. INDICATIONS: Profound anemia, EKG changes. HISTORY OF PRESENT ILLNESS: The patient is a 72-year-old male without prior cardiac disease. He denies any significant risk factors. He is on medication for depression and hyperlipidemia with good lipid control. Denies prior history of hypertension or diabetes or familial history of heart disease. The patient presents this admission noting approximately 1 month history of exertional fatigue as well as chest discomfort. Symptoms are described as a dry cough initially with low grade fever approximately 3 weeks ago, then been experiencing symptoms of intermittent substernal pressure and shortness of breath. He notes symptoms have gradually worsened, but notes 1 week ago having walked several miles around [facility] in association with opening of with general good tolerance but last week; however, symptoms have progressed substantially to the point of marked limitation. He presented to the Emergency Room last evening where he was found to be profoundly anemic with hemoglobin of 4.[address] segment changes on EKG. Symptoms described as a sharp substernal pain, intermittent. Notes no fevers or chills recently other than as noted approximately 3 weeks ago. Notes no rash or arthritic complaint. Notes no prior history of anemia, has undergone colonoscopy in the last 2 years' time with benign polyps noted. He uses intermittent Advil very rarely. Notes no headache or visual changes. Notes no orthopnea, PND or peripheral edema. Notes no prior history of angina, congestive heart failure, renal or hepatic disease. Denies history of TIA or stroke. REVIEW OF SYSTEMS: Otherwise negative. ALLERGIES: NOTED TO BE CEPHALOSPORINS AND TETANUS. MEDICATIONS: Prior to hospitalization were Lexapro 10 mg daily, Nexium 40 mg p.o. daily, and Zocor 20 mg p.o. daily. PAST SURGICAL HISTORY: Notable for hernia repair. FAMILY HISTORY: Notable for diabetes. Mother is alive at age 97. Father at age 70 but no prior history of cardiac disease. SOCIAL HISTORY: The patient is retired from [employer]. He is a nonsmoker, uses very rare alcoholic beverages, none to excess with substantial reduction in alcohol use over the last 10 years per patient. Exercise capacity has generally been good until recent complaints. PHYSICAL EXAMINATION: VITAL SIGNS: Heart rate 73, blood pressure is 142/92, O2 saturations 93% on room air. HEENT: Normocephalic and atraumatic. Nares without discharge. Throat was clear. NECK: Supple without thyromegaly, lymphadenopathy, JVD. LUNGS: Reveal crackles bibasilar. CARDIOVASCULAR: Regular with crisp S1, S2. There is no murmur or rub. PMI is nondisplaced. ABDOMEN: Soft, nontender. There is no hepatojugular reflux. EXTREMITIES: Without cyanosis or clubbing. There is no peripheral edema. There are intact distal pulses 2+/4. There is no brachial femoral delay. NEUROLOGIC: The patient is alert, answering questions appropriately. LABORATORY DATA: As noted, on presentation, white cell count was 5.0, RBCs were 1.1, hemoglobin was 4.3, MCV of 111. Sodium was 140, potassium 3.5, chloride 111, bicarbonate 23, BUN 23, creatinine 1.1. Iron studies were notable for elevated levels. AST and ALT were normal. Albumin level was 3.5. TSH was pending. B12 and folate levels were normal. Coag levels were essentially normal. Chest x-ray revealed no infiltrate or edema. EKG on initial presentation demonstrated sinus tachycardia, rate of [address] depression anterolaterally with normalization on rate control and transfusion. EKG this morning demonstrates sinus rhythm with incomplete right bundle branch block, minor nonspecific ST segment changes, resolved prior anterolateral ischemic findings. Laboratory studies included negative troponins x3. Echocardiogram is pending. Serum globulin level is mildly elevated as is alkaline phosphatase. Peripheral smear analysis earlier, this is listed on the chart, not suggestive of hemolysis per report. IMPRESSION: A 72-year-old male presents with symptoms of weakness, fatigue, and intermittent chest pressure with profound anemia identified. EKGs reflect significant ischemic changes initially which have resolved without evidence of myocardial injury or infarct. Findings may reflect demand-based changes secondary to profound anemia versus unmasked coronary artery disease due to above. Troponins do not reflect injury. Echocardiogram will be reviewed. The patient is now receiving his fifth unit of blood; would go caution with further transfusions. Given current asymptomatic state and normalization of EKGs, volume status will need to be continually reassessed. We will add low dose beta reema to regimen for hypertension and cardioprotective affect; further evaluation of anemias is imperative. Appreciate GI consultation to hematology should also be involved.
--- NOTE | 2018-01-17 13:50 | Gastroenterology Progress Note ---
Progress Note Date of Service: Jan 17, 2018 Subjective Pt evaluation today including: conversation w/ patient, conversation w/ family (son), physical exam, chart review, lab review, review of studies, review of inpatient medication list cc f/u anemia HPI No GI complaints. Review of Systems Respiratory: No shortness of breath Cardiac: No chest pain Medications Current Inpatient Medications Medications (Trade) Dose Ordered Sig/Jesica Route Start Time Stop Time Status Last Admin Dose Admin Acetaminophen (Tylenol Tab) 650 mg Q4H PRN PO 01/16/18 13:45 02/15/18 13:44 Ondansetron HCl (Zofran Inj) 4 mg Q6H PRN IV 01/16/18 13:45 02/15/18 13:44 Escitalopram Oxalate (Lexapro Tab) 10 mg DAILY PO 01/17/18 09:00 02/16/18 08:59 01/17/18 08:46 10 MG Simvastatin (Zocor Tab) 20 mg QPM PO 01/16/18 21:00 02/15/18 20:59 01/16/18 20:21 20 MG Pantoprazole Sodium (Protonix Tab) 40 mg QAM PO 01/17/18 09:00 02/16/18 08:59 01/17/18 08:46 40 MG Menthol (Nice Lester) 1 lester PRN PRN LESTER 01/16/18 23:00 02/15/18 22:59 Metoprolol Tartrate (Lopressor Tab) 12.5 mg BID PO 01/17/18 21:00 02/16/18 20:59 Objective Vital Signs Date Time Temp Pulse Resp B/P (MAP) Pulse Ox O2 Delivery O2 Flow Rate FiO2 01/17/18 12:00 Room Air 01/17/18 11:52 36.8 68 20 140/63 (88) 95 Room Air 01/17/18 09:45 36.6 71 18 129/61 100 01/17/18 08:45 36.6 78 18 136/68 98 01/17/18 08:15 36.6 80 18 146/67 100 01/17/18 08:00 Room Air 01/17/18 07:45 36.6 80 18 146/67 100 01/17/18 07:15 36.6 86 18 140/72 100 01/17/18 07:07 36.8 73 20 142/92 (109) 93 Room Air 01/17/18 06:47 36.7 73 16 136/69 98 01/17/18 06:38 36.9 91 18 119/70 94 01/17/18 04:00 Room Air 01/17/18 02:29 16 142/82 96 01/17/18 02:04 36.9 74 18 142/82 92 01/17/18 00:45 36.9 71 16 138/66 92 01/17/18 00:15 37.0 72 18 143/68 92 01/17/18 00:01 73 143/72 01/17/18 00:01 Room Air 01/16/18 23:52 36.9 74 16 155/73 92 01/16/18 23:38 37.1 20 20 155/73 (100) 93 Room Air 01/16/18 22:04 36.7 70 16 138/66 94 01/16/18 21:43 36.8 01/16/18 21:35 16 151/79 71 01/16/18 20:32 36.8 73 16 146/75 98 01/16/18 20:00 Room Air 01/16/18 19:30 36.4 71 18 143/69 94 01/16/18 19:00 36.7 69 18 152/66 95 01/16/18 18:27 36.8 77 16 155/64 97 01/16/18 18:12 36.8 78 16 149/65 96 01/16/18 16:02 36.9 76 16 144/80 96 01/16/18 15:32 36.8 75 16 160/83 100 01/16/18 15:11 36.8 81 16 144/64 100 01/16/18 14:56 75 95 144/65 96 01/16/18 14:41 74 18 129/61 94 01/16/18 14:36 77 18 148/53 95 01/16/18 14:14 96 Room Air Physical Exam General Appearance: WD/WN, no apparent distress Respiratory/Chest: lungs clear, normal breath sounds Cardiovascular: regular rate, rhythm, no edema Laboratory Results Last 24 Hours Test 01/16/18 18:08 01/16/18 22:52 01/17/18 04:20 01/17/18 09:22 Vitamin B12 Level 479 pg/mL Folate 8.17 ng/mL Troponin I < 0.015 ng/ml 0.020 ng/ml White Blood Count 3.67 K/uL Red Blood Count 2.10 M/uL Hemoglobin 6.8 g/dL Hematocrit 20.2 % Mean Corpuscular Volume 96.2 fL Mean Corpuscular Hemoglobin 32.4 pg Mean Corpuscular Hemoglobin Concent 33.7 g/dl Platelet Count 146 K/uL Mean Platelet Volume 9.7 fL Neutrophils (%) (Auto) 51.1 % Lymphocytes (%) (Auto) 21.3 % Monocytes (%) (Auto) 21.0 % Eosinophils (%) (Auto) 1.4 % Basophils (%) (Auto) 0.3 % Neutrophils # (Auto) 1.88 K/uL Lymphocytes # (Auto) 0.78 K/uL Monocytes # (Auto) 0.77 K/uL Eosinophils # (Auto) 0.05 K/uL Basophils # (Auto) 0.01 K/uL RDW Standard Deviation 75.0 fL RDW Coefficient of Variation 22.4 % Immature Granulocyte % (Auto) 4.9 % Immature Granulocyte # (Auto) 0.18 K/uL Large Platelets 1+ Anisocytosis PRESENT Sodium Level 139 mmol/L Potassium Level 3.5 mmol/L Chloride Level 111 mmol/L Carbon Dioxide Level 24 mmol/L Anion Gap 4.0 mmol/L Blood Urea Nitrogen 15 mg/dl Creatinine 1.02 mg/dl Est Creatinine Clear Calc Drug Dose 65.6 ml/min Estimated GFR () 83.5 Estimated GFR (Non- 72.1 BUN/Creatinine Ratio 14.6 Random Glucose 107 mg/dl Calcium Level 8.2 mg/dl Magnesium Level 1.8 mg/dl Total Bilirubin 0.8 mg/dl Aspartate Amino Transf (AST/SGOT) 20 U/L Alanine Aminotransferase (ALT/SGPT) 17 U/L Alkaline Phosphatase 105 U/L Total Protein 6.9 gm/dl Albumin 3.1 gm/dl Globulin 3.8 gm/dl Albumin/Globulin Ratio 0.8 Thyroid Stimulating Hormone (TSH) 0.923 uIu/ml Assessment and Plan Macrocytic anemia--B12 and folate normal, Fe sat and ferritin hig hx of tubular adenoma colon polyps last colo 04/2016 elevated alk phos mild--resolved Fe sat and ferritin elevation--defer to hematology If the anemia were from intestinal bleeding then he should have a low Fe and/or ferritin. The anemia is most likely from hematologic process and no GI workup recommended. Will sign off. Please call for further questions.
--- NOTE | 2018-01-17 15:23 | Medical Consult ---
Consultation Date of Consultation: Jan 17, 2018. Attending Physician: Mingo Giordano MD Reason for Consultation: Macrocytic anemia, suspicious for myelodysplasia History of Present Illness Mr. Red is a 72 yo CM new to the consulting Hematology service. He states he has no significant PMH. He came to [facility] yesterday after experiencing exertional chest pain, dyspnea and lightheadedness, progressive over the last 3-4 weeks. He as also experiencing fatigue. On work up, his Hgb on admission was in 4 g/dL range. He was severely macrocytic; iron studies, B 12 and folate not consistent with deficiency. A peripheral smear was suggestive of myelodysplasia. He is s/p 5 units of blood with response in H+H. GI has evaluated patient and ultimately signed off, no indication for diagnostic procedure for GI bleed. Patient states he had blood work in Summer of 2016 which he reports was normal through family MD, but unclear if a CBC was checked. He also believes however that he was told about 5 years ago that his blood counts "may have been abnormal." No old CBCs on file in [facility] or [facility] for review. He states up until 3-4 weeks ago he was in his typical state of health. He denies headaches or dizziness, fever, sweats, adenopathy, weight loss, anorexia , recurrent infections. He denies abdominal pain, bowel issues or bleeding from any sites. He has no prior h/o cancer. Past Medical/Surgical History Medical Problems: (1) Acute electrocardiogram changes Status: Acute (2) Anemia Status: Acute (3) Precordial chest pain Status: Acute (4) SOB (shortness of breath) Status: Acute Family History Diabetes mellitus Social History Smoking Status: Never Smoker Alcohol Use: occasionally Drug Use: none Marital Status: Housing Status: lives alone Occupation Status: retired Allergies Coded Allergies: Cephalosporins (Verified Allergy, Unknown, CEPHALEXIN, 11/21/15) Tetanus Toxoid (Verified Allergy, Unknown, 11/21/15) Current Inpatient Medications Current Inpatient Medications Medications (Trade) Dose Ordered Sig/Jesica Route Start Time Stop Time Status Last Admin Dose Admin Acetaminophen (Tylenol Tab) 650 mg Q4H PRN PO 01/16/18 13:45 02/15/18 13:44 Ondansetron HCl (Zofran Inj) 4 mg Q6H PRN IV 01/16/18 13:45 02/15/18 13:44 Escitalopram Oxalate (Lexapro Tab) 10 mg DAILY PO 01/17/18 09:00 02/16/18 08:59 01/17/18 08:46 10 MG Simvastatin (Zocor Tab) 20 mg QPM PO 01/16/18 21:00 02/15/18 20:59 01/16/18 20:21 20 MG Pantoprazole Sodium (Protonix Tab) 40 mg QAM PO 01/17/18 09:00 02/16/18 08:59 01/17/18 08:46 40 MG Menthol (Nice Kaitlin) 1 kaitlin PRN PRN KAITLIN 01/16/18 23:00 02/15/18 22:59 Metoprolol Tartrate (Lopressor Tab) 12.5 mg BID PO 01/17/18 21:00 02/16/18 20:59 Review of Systems Constitutional: + fatigue, No fever Respiratory: + dyspnea on exertion, No cough Cardiovascular: + chest pain, No edema Abdomen: No pain, No nausea, No diarrhea, No constipation, No GI bleeding Neurologic: + weakness, No vertigo Hematologic / Lymphatic: No swollen lymph nodes Integumentary: No rash Physical Exam Date Time Temp Pulse Resp B/P (MAP) Pulse Ox O2 Delivery O2 Flow Rate FiO2 01/17/18 12:00 Room Air 01/17/18 11:52 36.8 68 20 140/63 (88) 95 Room Air 01/17/18 09:45 36.6 71 18 129/61 100 01/17/18 08:45 36.6 78 18 136/68 98 01/17/18 08:15 36.6 80 18 146/67 100 01/17/18 08:00 Room Air 01/17/18 07:45 36.6 80 18 146/67 100 01/17/18 07:15 36.6 86 18 140/72 100 01/17/18 07:07 36.8 73 20 142/92 (109) 93 Room Air 01/17/18 06:47 36.7 73 16 136/69 98 01/17/18 06:38 36.9 91 18 119/70 94 01/17/18 04:00 Room Air 01/17/18 02:29 16 142/82 96 01/17/18 02:04 36.9 74 18 142/82 92 01/17/18 00:45 36.9 71 16 138/66 92 01/17/18 00:15 37.0 72 18 143/68 92 01/17/18 00:01 73 143/72 01/17/18 00:01 Room Air 01/16/18 23:52 36.9 74 16 155/73 92 01/16/18 23:38 37.1 20 20 155/73 (100) 93 Room Air 01/16/18 22:04 36.7 70 16 138/66 94 01/16/18 21:43 36.8 01/16/18 21:35 16 151/79 71 01/16/18 20:32 36.8 73 16 146/75 98 01/16/18 20:00 Room Air 01/16/18 19:30 36.4 71 18 143/69 94 01/16/18 19:00 36.7 69 18 152/66 95 01/16/18 18:27 36.8 77 16 155/64 97 01/16/18 18:12 36.8 78 16 149/65 96 01/16/18 16:02 36.9 76 16 144/80 96 01/16/18 15:32 36.8 75 16 160/83 100 01/16/18 15:11 36.8 81 16 144/64 100 01/16/18 14:56 75 95 144/65 96 General Appearance: no apparent distress ENT: hearing grossly normal Neck: supple, no adenopathy Respiratory/Chest: lungs clear, no respiratory distress Cardiovascular: regular rate, rhythm Abdomen/GI: normal bowel sounds, non tender, no organomegaly Extremities/Musculoskelatal: no calf tenderness, no pedal edema Neurologic/Psych: alert, oriented x 3 Skin: warm/dry Lymphatic: no adenopathy Laboratory Results 01/16/18 12:06 01/17/18 04:20 Red Blood Count 2.10, Mean Corpuscular Volume 96.2 #, Mean Corpuscular Hemoglobin 32.4, Mean Corpuscular Hemoglobin Concent 33.7, Mean Platelet Volume 9.7, Neutrophils (%) (Auto) 51.1, Lymphocytes (%) (Auto) 21.3, Monocytes (%) ( Auto) 21.0, Eosinophils (%) (Auto) 1.4, Basophils (%) (Auto) 0.3, Neutrophils # (Auto) 1.88, Lymphocytes # (Auto) 0.78, Monocytes # (Auto) 0.77, Eosinophils # ( Auto) 0.05, Basophils # (Auto) 0.01 01/16/18 12:06 01/17/18 04:20 Test 01/16/18 12:06 01/16/18 12:14 01/16/18 18:08 01/16/18 22:52 Red Blood Count 1.15 M/uL (4.7-6.1) Mean Corpuscular Volume 111.3 fL (80-100) Mean Corpuscular Hemoglobin 37.4 pg (25-34) Mean Corpuscular Hemoglobin Concent 33.6 g/dl (32-36) RDW Standard Deviation 80.1 fL (36.4-46.3) RDW Coefficient of Variation 20.3 % (11.5-14.5) Mean Platelet Volume 9.8 fL (7.4-10.4) Peripheral Blood Smear Path Consult Absolute Reticulocyte Count 0.01 10^6/uL (0.02-0.10) Percent Reticulocyte Count 1.1 % (0.5-2.0) Prothrombin Time 12.1 SECONDS (9.0-12.0) Prothromb Time International Ratio 1.2 (0.9-1.1) Activated Partial Thromboplast Time 26.2 SECONDS (21.0-31.0) Partial Thromboplastin Ratio 1.0 Anion Gap 6.0 mmol/L (3-11) Est Creatinine Clear Calc Drug Dose 58.7 ml/min Estimated GFR () 73.0 Estimated GFR (Non- 63.0 BUN/Creatinine Ratio 20.5 (10-20) Calcium Level 8.9 mg/dl (8.5-10.1) Magnesium Level 2.0 mg/dl (1.8-2.4) Iron Level 188 mcg/dl (35-175) Transferrin 202 mg/dl (200-360) Transferrin % Saturation 67 % (20-50) Ferritin 1143.3 ng/ml (8.0-388.0) Total Bilirubin 0.6 mg/dl (0.2-1) Aspartate Amino Transf (AST/SGOT) 18 U/L (15-37) Alanine Aminotransferase (ALT/SGPT) 17 U/L (12-78) Alkaline Phosphatase 124 U/L (45-117) Troponin I < 0.015 ng/ml (0-0.045) < 0.015 ng/ml (0-0.045) Total Protein 7.9 gm/dl (6.4-8.2) Albumin 3.5 gm/dl (3.4-5.0) Globulin 4.4 gm/dl (2.5-4.0) Albumin/Globulin Ratio 0.8 (0.9-2) Lipase 116 U/L (73-393) Bedside Troponin I < 0.030 ng/ml (0-0.045) Vitamin B12 Level 479 pg/mL (211-911) Folate 8.17 ng/mL (>5.38) Test 01/17/18 04:20 01/17/18 09:22 White Blood Count 3.67 K/uL (4.8-10.8) Red Blood Count 2.10 M/uL (4.7-6.1) Hemoglobin 6.8 g/dL (14.0-18.0) Hematocrit 20.2 % (42-52) Mean Corpuscular Volume 96.2 fL (80-100) Mean Corpuscular Hemoglobin 32.4 pg (25-34) Mean Corpuscular Hemoglobin Concent 33.7 g/dl (32-36) Platelet Count 146 K/uL (130-400) Mean Platelet Volume 9.7 fL (7.4-10.4) Neutrophils (%) (Auto) 51.1 % Lymphocytes (%) (Auto) 21.3 % Monocytes (%) (Auto) 21.0 % Eosinophils (%) (Auto) 1.4 % Basophils (%) (Auto) 0.3 % Neutrophils # (Auto) 1.88 K/uL (1.4-6.5) Lymphocytes # (Auto) 0.78 K/uL (1.2-3.4) Monocytes # (Auto) 0.77 K/uL (0.11-0.59) Eosinophils # (Auto) 0.05 K/uL (0-0.5) Basophils # (Auto) 0.01 K/uL (0-0.2) RDW Standard Deviation 75.0 fL (36.4-46.3) RDW Coefficient of Variation 22.4 % (11.5-14.5) Immature Granulocyte % (Auto) 4.9 % Immature Granulocyte # (Auto) 0.18 K/uL (0.00-0.02) Large Platelets 1+ Anisocytosis PRESENT Anion Gap 4.0 mmol/L (3-11) Est Creatinine Clear Calc Drug Dose 65.6 ml/min Estimated GFR () 83.5 Estimated GFR (Non- 72.1 BUN/Creatinine Ratio 14.6 (10-20) Calcium Level 8.2 mg/dl (8.5-10.1) Magnesium Level 1.8 mg/dl (1.8-2.4) Total Bilirubin 0.8 mg/dl (0.2-1) Aspartate Amino Transf (AST/SGOT) 20 U/L (15-37) Alanine Aminotransferase (ALT/SGPT) 17 U/L (12-78) Alkaline Phosphatase 105 U/L (45-117) Troponin I 0.020 ng/ml (0-0.045) Total Protein 6.9 gm/dl (6.4-8.2) Albumin 3.1 gm/dl (3.4-5.0) Globulin 3.8 gm/dl (2.5-4.0) Albumin/Globulin Ratio 0.8 (0.9-2) Thyroid Stimulating Hormone (TSH) 0.923 uIu/ml (0.300-4.500) Assessment & Plan 1. Severe macrocytic anemia s/p 5 units PRBC with response in H+H * Work up thus far: iron studies, B 12 and folate not consistent with deficiency , reticulocyte abnormal with normal % retics and low ARC, bilirubin levels are normal, TSH normal * No evidence in CMP for myeloma, but will also send a SPEP in work up * Peripheral smear with concern for myelodysplasia which is differential for macrocytic anemia * Counseled patient that his Hgb should be maintained above 7 g/dL which Hematology can help facilitate upon discharge while work up ensues * Patient will require outpatient bone marrow biopsy for further work up * Discussed briefly about myelodysplasia S/S, work up and treatment with patient , but that this process needs to be confirmed by biopsy of bone marrow before any further action taken * Check CBCD daily, transfuse if Hgb < 7 g/dL * Patient will need appt with Hematology on discharge for bone marrow biopsy Thanks for the consult. Dr. Escobar is the attending editorial assistant- please see his addendum. I performed history and physical examination of the patient. I have discussed the patient's case, impression and plan with Jennifer Chery PA-C. Her note reflects my findings and plan. In summary, he is a 72-year-old male, who presented with significant symptomatic anemia with hemoglobin level around 4.3, MCV around 111, normal platelet count, normal to slightly low white blood cell count, received 5 units of PRBC, significantly low reticulocyte count, normal liver function test, serum creatinine level is 1.1, normal Vitamin B12, no evidence of iron deficiency, in fact Ferritin level is around 1100, normal TSH. SPEP pending but unlikely to have monoclonal paraprotein disorder. Overall clinical picture suggest primary bone disorder, myelodysplastic syndrome would be possible, other possibility would be pure red cell aplasia but macrocytosis would be somewhat unusual. He will need a bone marrow for further evaluation. He is likely to go home soon, planning for bone marrow as an outpatient. Dr. Sandro Escobar Hem/Onc
[2018-01-17 16:29] LABS: HEMATOCRIT 22.9 % (42-52); HEMOGLOBIN 7.9 g/dL (14.0-18.0)
[2018-01-17] MEDS: SIMVASTATIN 20 MG TAB PO SCH (20:14)
[2018-01-17] MEDS: METOPROLOL TARTRATE 25 MG TAB PO SCH (20:14)
[2018-01-18] VITALS (8 sets, daily range): BP systolic 127–156; BP diastolic 66–77; PULSE 64–70; TEMP 36.6–37.1; O2SAT 93–96
[2018-01-18 06:08] LABS: HEMATOCRIT 23.9 % (42-52); HEMOGLOBIN 8.2 g/dL (14.0-18.0); MEAN CELL VOLUME 95.2 fL (80-100); MEAN CORPUSCULAR HEMOGLOBIN 32.7 pg (25-34); MEAN CORPUSCULAR HGB CONC 34.3 g/dl (32-36); PLATELET COUNT 137 K/uL (130-400); RED CELL DISTRIBUTION WIDTH CV 21.4 % (11.5-14.5); RED CELL DISTRIBUTION WIDTH SD 71.4 fL (36.4-46.3); WHITE BLOOD COUNT 3.33 K/uL (4.8-10.8)
[2018-01-18 06:39] LABS: CALCIUM 8.5 mg/dl (8.5-10.1); CREATININE 1.04 mg/dl (0.60-1.40); POTASSIUM 3.2 mmol/L (3.5-5.1)
[2018-01-18] MEDS: METOPROLOL TARTRATE 25 MG TAB PO SCH ×2 (08:10→20:53)
[2018-01-18] MEDS: PANTOprazole SOD 40 MG TAB PO SCH (08:11)
[2018-01-18] MEDS: ESCITALOPRAM OXALATE 10 MG TAB PO SCH (08:12)
[2018-01-18] MEDS ORDERED: POTASSIUM CHLORIDE 10 MEQ TABCR PO ONE (09:15)
--- NOTE | 2018-01-18 10:37 | Progress Note ---
Internal Med Progress Note Date of Service: Jan 18, 2018. Provider Documentation: SUBJECTIVE: Seen and examined at bedside Reports generalized weakness and tires easily Denies any chest pain, SOB, dizziness, nausea, abdominal pain Also denies any bleeding issues, black stools No other complaints Hb stable OBJECTIVE: Vital Signs-as noted below Physical Exam: General Appearance:Moderately built and nourished, no apparent distress Head: normocephalic, Atraumatic Eyes: normal inspection, EOMI, PERRL Neck: supple, Trachea midline Respiratory/Chest: Normal breath sounds, CTA Cardiovascular: S1, S2, No murmur Abdomen/GI:Soft, Non tender, Bowel sounds present Extremities/Musculoskelatal:normal inspection, no edema Neurologic/Psych:AAOX3, grossly no focal neurological deficits Skin: normal color, warm Lab data as noted below. ASSESSMENT & PLAN: Patient is a 72 yr male with the PMH of anxiety, GERD and HLD who presents with intermittent chest pain over the past few weeks. Severe macrocytic anemia: No obvious source of bleeding Hb: 6.8 >>>8.2 S/P 5 units PRBCs Occasional ibuprofen use Continue Protonix Monitor H&H Appreciate GI Input Avoid NSAIDs B12, Folate levels normal Ferritin high Appreciate Oncology Input Planned for Bone marrow biopsy to R/O MDS as outpatient SPEP pending Atypical Chest pain: Intermittent, present with exertion Likely demand ischemia 2/2 profound anemia Presented with anterolateral ST depression EKG changes normalized Troponin X3: Negative No chest pain currently ECHO as below (left ventricular wall motion is normal) Appreciate Cardiology Input Started on metoprolol for HTN Hypokalemia: replace and monitor Anxiety: Stable Continue lexapro HLD: Continue statin DVT Px: SCDs Code status: Full Code Disposition: Monitor in Telemetry PROCEDURES: ECHO: * The left ventricle is normal in size. * There is normal left ventricular wall thickness. * The left ventricular wall motion is normal. * Left ventricular systolic function is normal. * Ejection Fraction = 60-65%. * Aortic valve sclerosis mild, without significant aortic valvular stenosis. * There is mild to moderate mitral regurgitation. * There is trace tricuspid regurgitation. * Right ventricular systolic pressure is elevated at 40-50mmHg. Vital Signs: Date Time Temp Pulse Resp B/P (MAP) Pulse Ox O2 Delivery O2 Flow Rate FiO2 01/18/18 08:00 Room Air 01/18/18 07:21 36.6 70 20 156/77 (103) 93 Room Air 01/18/18 04:20 Room Air 01/18/18 03:40 37.1 67 17 145/72 (96) 95 Room Air 01/18/18 00:30 Room Air 01/17/18 23:38 37.0 65 20 137/64 (88) 94 Room Air 01/17/18 20:45 Room Air 01/17/18 19:26 36.5 68 20 139/69 (92) 94 Room Air 01/17/18 15:03 Room Air 01/17/18 15:01 37.0 68 20 118/66 (83) 93 Room Air 01/17/18 12:00 Room Air 01/17/18 11:52 36.8 68 20 140/63 (88) 95 Room Air Lab Results: Results Past 24 Hours Test 01/17/18 16:04 01/18/18 05:39 Range/Units Hemoglobin 7.9 8.2 14.0-18.0 g/dL Hematocrit 22.9 23.9 42-52 % White Blood Count 3.33 4.8-10.8 K/uL Red Blood Count 2.51 4.7-6.1 M/uL Mean Corpuscular Volume 95.2 80-100 fL Mean Corpuscular Hemoglobin 32.7 25-34 pg Mean Corpuscular Hemoglobin Concent 34.3 32-36 g/dl RDW Standard Deviation 71.4 36.4-46.3 fL RDW Coefficient of Variation 21.4 11.5-14.5 % Platelet Count 137 130-400 K/uL Mean Platelet Volume 10.0 7.4-10.4 fL Sodium Level 139 136-145 mmol/L Potassium Level 3.2 3.5-5.1 mmol/L Chloride Level 110 98-107 mmol/L Carbon Dioxide Level 26 21-32 mmol/L Anion Gap 3.0 3-11 mmol/L Blood Urea Nitrogen 14 7-18 mg/dl Creatinine 1.04 0.60-1.40 mg/dl Est Creatinine Clear Calc Drug Dose 64.3 ml/min Estimated GFR () 81.6 Estimated GFR (Non- 70.4 BUN/Creatinine Ratio 13.2 10-20 Random Glucose 107 70-99 mg/dl Calcium Level 8.5 8.5-10.1 mg/dl Magnesium Level 2.0 1.8-2.4 mg/dl
--- NOTE | 2018-01-18 12:21 | PROGRESS NOTE ---
DATE: 01/18/2018 Cardiology consultation followup note Patient seen and examined. Chart, medications, telemetry reviewed. SUBJECTIVE: Patient feels substantially improved this morning, better than he has "in some time," ambulatory in room. Notes no chest pain, shortness of breath, tachypalpitations, orthopnea. Notes no peripheral edema. Tolerating current medications. OBJECTIVE: VITAL SIGNS: Heart rate is 70, blood pressure is 156/77. Telemetry reveals no arrhythmias. NECK: Thick. There is no distinct jugular venous distention. No carotid bruits. LUNGS: Clear to auscultation other than minimal crackles basilar. CARDIOVASCULAR: Regular. There is no S3 gallop. ABDOMEN: Soft, nontender. No palpable hepatosplenomegaly. EXTREMITIES: Without cyanosis or clubbing. There is no peripheral edema. LABORATORY DATA: White cell count is 3.3, hemoglobin is 8.2. Sodium is 139, potassium is 3.2, chloride is 110, bicarbonate is 26, BUN is 14, creatinine is 1.0. Serum protein electrophoresis is pending. IMPRESSION: A 72-year-old male presented with profound weakness and fatigue, chest pressure in association with marked macrocytic anemia. He did have dynamic EKG changes with ST depression in association with tachycardia symptoms. I suspect this is a reflection of the patient's underlying anemia rather than acute coronary syndrome as noted. This may have unmasked coronary artery disease. Would recommend continuing metoprolol. Continue with GI with hematology evaluation, would consider stress testing once hemoglobin stable in the next 4-6 weeks' time as an outpatient as part of complete control. If blood pressures would increase further, we will add NASIR inhibitor to the regimen.
--- NOTE | 2018-01-18 13:06 | Hematology/Oncology Prog Note ---
Hematology/Onc Progress Note Date of Service Jan 18, 2018. Subjective Patient was rounded on at bedside. He has no complaints aside from fatigue. No chest pain, cough or dyspnea. He states he is scheduled to go home tomorrow. Review of Systems: Respiratory: No cough, No shortness of breath Cardiovascular: No chest pain Vital Signs Vital Signs Past 12 Hours Date Time Temp Pulse Resp B/P (MAP) Pulse Ox O2 Delivery O2 Flow Rate FiO2 01/18/18 12:09 37.1 64 20 133/66 (88) 96 Room Air 01/18/18 11:37 Room Air 01/18/18 08:00 Room Air 01/18/18 07:21 36.6 70 20 156/77 (103) 93 Room Air 01/18/18 04:20 Room Air 01/18/18 03:40 37.1 67 17 145/72 (96) 95 Room Air Physical Exam Constitutional: General Apperance: heathly-appearing Level of Distress: NAD Lungs: Respiratory Effort: no dyspnea Laboratory 01/18/18 05:39 01/18/18 05:39 Test 01/17/18 16:04 01/18/18 05:39 Red Blood Count 2.51 M/uL (4.7-6.1) Mean Corpuscular Volume 95.2 fL (80-100) Mean Corpuscular Hemoglobin 32.7 pg (25-34) Mean Corpuscular Hemoglobin Concent 34.3 g/dl (32-36) RDW Standard Deviation 71.4 fL (36.4-46.3) RDW Coefficient of Variation 21.4 % (11.5-14.5) Mean Platelet Volume 10.0 fL (7.4-10.4) Anion Gap 3.0 mmol/L (3-11) Est Creatinine Clear Calc Drug Dose 64.3 ml/min Estimated GFR () 81.6 Estimated GFR (Non- 70.4 BUN/Creatinine Ratio 13.2 (10-20) Calcium Level 8.5 mg/dl (8.5-10.1) Magnesium Level 2.0 mg/dl (1.8-2.4) Assessment & Plan 1. Severe macrocytic anemia s/p 5 units PRBC with response in H+H * Work up thus far: iron studies, B 12 and folate not consistent with deficiency , reticulocyte abnormal with normal % retics and low ARC, bilirubin levels are normal, TSH normal * No evidence in CMP for myeloma, but will also send a SPEP in work up- SPEP pending * Peripheral smear with concern for myelodysplasia which is differential for macrocytic anemia * Patient will require outpatient bone marrow biopsy for further work up- patient understands Hematology will be in touch on discharge * Check CBCD daily, transfuse if Hgb < 7 g/dL- Hgb up to 8 g/dL range today. * I have discussed the patient's case, impression and plan with Jennifer Luevano. Her note reflects my findings and plan. I also spoke with the hospitalist about treatment plan in his case, planning for bone marrow examination in the next [address] Sandro Escobar Hem/Onc
[2018-01-18 13:18] LABS: ISTAT IONIZED CALCIUM 1.21 mmol/l (1.12-1.32); ISTAT POTASSIUM 3.5 mEq/L (3.3-5.0); ISTAT SODIUM 143 mEq/L (135-144)
[2018-01-18 20:31] LABS: HEMATOCRIT 24.4 % (42-52); HEMOGLOBIN 8.2 g/dL (14.0-18.0)
[2018-01-18] MEDS: SIMVASTATIN 20 MG TAB PO SCH (20:52)
[2018-01-19 04:00] VITALS: O2SAT 94
[2018-01-19 04:34] VITALS: BP_SYST 145; PULSE 60; TEMP 37; O2SAT 91
[2018-01-19 06:00] LABS: HEMOGLOBIN 8.3 g/dL (14.0-18.0); MEAN CELL VOLUME 96.5 fL (80-100); MEAN CORPUSCULAR HGB CONC 33.2 g/dl (32-36); MEAN PLATELET VOLUME 9.9 fL (7.4-10.4); PLATELET COUNT 149 K/uL (130-400); RED CELL DISTRIBUTION WIDTH CV 20.8 % (11.5-14.5); RED CELL DISTRIBUTION WIDTH SD 69.7 fL (36.4-46.3); WHITE BLOOD COUNT 3.61 K/uL (4.8-10.8)
[2018-01-19 06:32] LABS: CALCIUM 8.7 mg/dl (8.5-10.1); CREATININE 1.04 mg/dl (0.60-1.40); POTASSIUM 3.6 mmol/L (3.5-5.1)
[2018-01-19 07:05] VITALS: BP 136/74; PULSE 69; TEMP 37.1; O2SAT 93
[2018-01-19] MEDS: METOPROLOL TARTRATE 25 MG TAB PO SCH (08:13)
[2018-01-19] MEDS: ESCITALOPRAM OXALATE 10 MG TAB PO SCH (08:14)
[2018-01-19] MEDS: PANTOprazole SOD 40 MG TAB PO SCH (08:14)
--- NOTE | 2018-01-19 08:52 | Progress Note ---
Internal Med Progress Note Date of Service: Jan 19, 2018. Provider Documentation: SUBJECTIVE: Seen and examined at bedside Feels much better today Denies any chest pain, SOB, dizziness, nausea, abdominal pain No other complaints Hb stable OBJECTIVE: Vital Signs-as noted below Physical Exam: General Appearance:Moderately built and nourished, no apparent distress Head: normocephalic, Atraumatic Eyes: normal inspection, EOMI, PERRL Neck: supple, Trachea midline Respiratory/Chest: Normal breath sounds, CTA Cardiovascular: S1, S2, No murmur Abdomen/GI:Soft, Non tender, Bowel sounds present Extremities/Musculoskelatal:normal inspection, no edema Neurologic/Psych:AAOX3, grossly no focal neurological deficits Skin: normal color, warm Lab data as noted below. ASSESSMENT & PLAN: Patient is a 72 yr male with the PMH of anxiety, GERD and HLD who presents with intermittent chest pain over the past few weeks. Severe macrocytic anemia: No obvious source of bleeding Hb: 6.8 >>>8.2>>8.3 S/P 5 units PRBCs Occasional ibuprofen use Continue Protonix Monitor H&H Appreciate GI Input Avoid NSAIDs B12, Folate levels normal Ferritin high Appreciate Oncology Input SPEP pending Planned for Bone marrow biopsy to R/O MDS as outpatient Atypical Chest pain: Intermittent, present with exertion Likely demand ischemia 2/2 profound anemia Presented with anterolateral ST depression EKG changes normalized Troponin X3: Negative No chest pain currently ECHO as below (left ventricular wall motion is normal) Appreciate Cardiology Input Continue metoprolol Planned for stress test as outpatient in 4-6 weeks Hypokalemia: Resolved monitor Anxiety: Stable Continue lexapro HLD: Continue statin DVT Px: SCDs Code status: Full Code Disposition: Plan to discharge home today Follow up with your PCP on 11/22/17 at 2:05pm Follow up with your programmer numerical control on February 22, 2018 at 1:45pm Follow up with your Oncologist Dr.Nilesh Escobar in 1 week for possible Bone Marrow study as outpatient Seek immediate medical attention if your symptoms reoccur or worsen PROCEDURES: ECHO: * The left ventricle is normal in size. * There is normal left ventricular wall thickness. * The left ventricular wall motion is normal. * Left ventricular systolic function is normal. * Ejection Fraction = 60-65%. * Aortic valve sclerosis mild, without significant aortic valvular stenosis. * There is mild to moderate mitral regurgitation. * There is trace tricuspid regurgitation. * Right ventricular systolic pressure is elevated at 40-50mmHg. Vital Signs: Date Time Temp Pulse Resp B/P (MAP) Pulse Ox O2 Delivery O2 Flow Rate FiO2 01/19/18 07:05 37.1 69 19 136/74 (94) 93 Room Air 01/19/18 04:34 37.0 60 18 145/ (48) 91 01/19/18 04:00 94 Room Air 01/18/18 23:59 94 Room Air 01/18/18 23:19 37.0 64 18 127/67 (87) 93 Room Air 01/18/18 20:00 94 Room Air 01/18/18 18:54 36.7 67 20 94 Room Air 01/18/18 16:12 Room Air 01/18/18 15:05 37.1 67 22 147/74 (98) 94 01/18/18 12:09 37.1 64 20 133/66 (88) 96 Room Air 01/18/18 11:37 Room Air Lab Results: Results Past 24 Hours Test 01/18/18 20:04 01/19/18 05:22 Range/Units Hemoglobin 8.2 8.3 14.0-18.0 g/dL Hematocrit 24.4 25.0 42-52 % White Blood Count 3.61 4.8-10.8 K/uL Red Blood Count 2.59 4.7-6.1 M/uL Mean Corpuscular Volume 96.5 80-100 fL Mean Corpuscular Hemoglobin 32.0 25-34 pg Mean Corpuscular Hemoglobin Concent 33.2 32-36 g/dl RDW Standard Deviation 69.7 36.4-46.3 fL RDW Coefficient of Variation 20.8 11.5-14.5 % Platelet Count 149 130-400 K/uL Mean Platelet Volume 9.9 7.4-10.4 fL Sodium Level 138 136-145 mmol/L Potassium Level 3.6 3.5-5.1 mmol/L Chloride Level 108 98-107 mmol/L Carbon Dioxide Level 25 21-32 mmol/L Anion Gap 5.0 3-11 mmol/L Blood Urea Nitrogen 13 7-18 mg/dl Creatinine 1.04 0.60-1.40 mg/dl Est Creatinine Clear Calc Drug Dose 64.3 ml/min Estimated GFR () 81.6 Estimated GFR (Non- 70.4 BUN/Creatinine Ratio 12.9 10-20 Random Glucose 117 70-99 mg/dl Calcium Level 8.7 8.5-10.1 mg/dl Magnesium Level 2.1 1.8-2.4 mg/dl
[2018-01-19] MEDS ORDERED: LPR25 PO (08:54)
--- NOTE | 2018-01-19 08:56 | Discharge Summary ---
Discharge Summary Date of Service Jan 19, 2018. Discharge Summary Admission Date: Jan 16, 2018 at 13:48 Discharge Date: Jan 19, 2018 Discharge Disposition: Home Principal Diagnosis: Severe Anemia, Atypical chest pain Procedures: CXR: No active disease in the chest. ECHO: * The left ventricle is normal in size. * There is normal left ventricular wall thickness. * The left ventricular wall motion is normal. * Left ventricular systolic function is normal. * Ejection Fraction = 60-65%. * Aortic valve sclerosis mild, without significant aortic valvular stenosis. * There is mild to moderate mitral regurgitation. * There is trace tricuspid regurgitation. * Right ventricular systolic pressure is elevated at 40-50mmHg. Consultations: Oncology, Cardiology, GI Pending Studies/Follow-Up: Follow up with your PCP on 11/22/17 at 2:05pm Follow up with your medicaid billing clerk on February 22, 2018 at 1:45pm Follow up with your Oncologist Dr.Nilesh Escobar in 1 week for possible Bone Marrow study as outpatient Seek immediate medical attention if your symptoms reoccur or worsen Medication Reconciliation New Medications: Metoprolol Tartrate (Lopressor) 25 Mg Tab 12.5 MG PO BID for 30 Days, #30 TAB 1 Refill Continued Medications: Escitalopram (Lexapro) 10 Mg Tab 10 MG PO DAILY, TAB Esomeprazole Magnesium (Nexium) 40 Mg Capcr 40 MG PO DAILY, CAP Simvastatin (Zocor) 20 Mg Tab 20 MG PO QPM, TAB Admission Information HPI (per Admitting provider): Patient is a 72-year-old male with the PMH of anxiety, GERD and HLD who presents with intermittent chest pain over the past few weeks. Patient developed dry cough 3 weeks ago with associated low-grade fever. Was evaluated by urgent care last week and was told he had a URI. EKG was performed at this time and showed normal sinus rhythm without acute changes. Since then, patient has experienced SOB and lightheadedness with any type of exertion. Has also been experiencing associated chest pain with radiation down both arms. Describes pain as 9/10 in severity, sharp in character and intermittent. It goes away with rest. Denies any associated diaphoresis, nausea or vomiting. Denies any history of heart disease. In ED, patient was found to have a hemoglobin of 4.3. EKG shows ST depression in anterolateral leads, which is a new finding. Initial troponin negative. Denies any history of GI bleed. Patient thinks he has been told he has anemia in the past but is unsure. Does intermittently use Advil for MSK pain. Denies fever, chills, headache, visual changes, abdominal pain, nausea, vomiting, dysuria, melena, hematochezia or LE swelling. Follows with Dr. Dill of [facility] but is looking to establish care with [facility]. Physical Exam (per Admitting): General Appearance: WD/WN, no apparent distress, + pertinent finding (pale) Head: normocephalic, atraumatic Eyes: normal inspection, PERRL, sclerae normal ENT: normal ENT inspection, hearing grossly normal, pharynx normal (moist mucous membranes ) Neck: supple, thyroid normal, trachea midline Respiratory/Chest: chest non-tender, lungs clear, normal breath sounds, no respiratory distress, no accessory muscle use Cardiovascular: regular rate, rhythm, no murmur, normal peripheral pulses Abdomen/GI: non tender, soft, no organomegaly Back: normal inspection Extremities/Musculoskelatal: normal inspection, no calf tenderness, no pedal edema Neurologic/Psych: no motor/sensory deficits, alert, normal mood/affect, oriented x 3 Skin: warm/dry, no rash, + pallor Hospital Course Patient is a 72 yr male with the PMH of anxiety, GERD and HLD who presents with intermittent chest pain over the past few weeks. Severe macrocytic anemia: No obvious source of bleeding Hb: 6.8 >>>8.2>>8.3 S/P 5 units PRBCs Occasional ibuprofen use Continue Protonix Monitor H&H Appreciate GI Input Avoid NSAIDs B12, Folate levels normal Ferritin high Appreciate Oncology Input SPEP pending Planned for Bone marrow biopsy to R/O MDS as outpatient Atypical Chest pain: Intermittent, present with exertion Likely demand ischemia 2/2 profound anemia Presented with anterolateral ST depression EKG changes normalized Troponin X3: Negative No chest pain currently ECHO as below (left ventricular wall motion is normal) Appreciate Cardiology Input Continue metoprolol Planned for stress test as outpatient in 4-6 weeks Hypokalemia: Resolved monitor Anxiety: Stable Continue lexapro HLD: Continue statin DVT Px: SCDs Code status: Full Code Disposition: Plan to discharge home today Follow up with your PCP on 11/22/17 at 2:05pm Follow up with your medicaid billing clerk on February 22, 2018 at 1:45pm Follow up with your Oncologist Dr.Nilesh Escobar in 1 week for possible Bone Marrow study as outpatient Seek immediate medical attention if your symptoms reoccur or worsen PROCEDURES: ECHO: * The left ventricle is normal in size. * There is normal left ventricular wall thickness. * The left ventricular wall motion is normal. * Left ventricular systolic function is normal. * Ejection Fraction = 60-65%. * Aortic valve sclerosis mild, without significant aortic valvular stenosis. * There is mild to moderate mitral regurgitation. * There is trace tricuspid regurgitation. * Right ventricular systolic pressure is elevated at 40-50mmHg. Total time spent on discharge = 33 minutes This includes examination of the patient, discharge planning, medication reconciliation, and communication with other providers. Discharge Instructions Discharge Instructions Date of Service Jan 19, 2018. Admission Reason for Admission: Anemia Discharge Discharge Diagnosis / Problem: Severe Anemia, Atypical chest pain Discharge Goals Goal(s): Decrease discomfort, Improve function Activity Recommendations Activity Limitations: per Instructions/Follow-up section Lifting Limitations: gradually increase as tolerated Exercise/Sports Limitations: gradually increase as tolerated . Instructions / Follow-Up Instructions / Follow-Up Follow up with your PCP on 11/22/17 at 2:05pm Follow up with your medicaid billing clerk on February 22, 2018 at 1:45pm Follow up with your Oncologist Dr.Nilesh Escobar in 1 week for possible Bone Marrow study as outpatient Seek immediate medical attention if your symptoms reoccur or worsen Current Hospital Diet Patient's current hospital diet: AHA Diet (Heart Healthy) Discharge Diet Recommended Diet: AHA Diet (Heart Healthy) Pending Studies Studies pending at discharge: yes List of pending studies: SPEP Medical Emergencies . Who to Call and When: Medical Emergencies: If at any time you feel your situation is an emergency, please call 911 immediately. . Non-Emergent Contact Non-Emergency issues call your: Primary Care Provider, Pest Control Operator, Oncologist Call Non-Emergent contact if: you have a fever, your pain is not controlled, your pain is worsening, your pain is unusual for you, your pain is concerning you, you have any medication questions Seek immediate medical attention if your symptoms reoccur or worsen . . "Provider Documentation" section prepared by Mingo Giordano. . <Electronically signed by Mingo Giordano MD> Signed: 01/19/18 0855 Signed: The status of this report is Signed * If report status is Draft, the document has not been finalized by the responsible provider.
[2018-01-19 10:06] VITALS: BP 136/74; PULSE 69; TEMP 37.1; O2SAT 93
== END 2018-01-19 11:02 | disposition home or self-care (01) | DRG 812 ==
LOC: C.EDB 11:56 → C.2E 13:48 → ENRESERV 14:05
PROVIDERS: ADMIT Hospitalist; ATTEND Internal Medicine
DX: D53.9 Nutritional anemia, unspecified (principal); I24.8 Other forms of acute ischemic heart disease; D46.9 Myelodysplastic syndrome, unspecified; E87.6 Hypokalemia; F41.9 Anxiety disorder, unspecified; E78.5 Hyperlipidemia, unspecified; K21.9 Gastro-esophageal reflux disease without esophagitis; Z79.899 Other long term (current) drug therapy; Z86.010 Personal history of colon polyps; Z88.8 Allergy status to other drugs, medicaments and biological substances; Z88.7 Allergy status to serum and vaccine; Z83.3 Family history of diabetes mellitus

== ENCOUNTER 2019-06-21 18:10 | Inpatient (IN) ==
--- OUTSIDE RECORDS SUMMARY | 2019-06-21 18:13 | External Medical Summary | Continuity of Care Document ---
:1945 Author Name Ly Omalley, Provider Address Unavailable Unavailable , Care Team Providers Name Role Phone Vinny [email or web address] PCP, UNKNOWN Unavailable Unavailable Problems Active medical history not documented Allergies and Adverse Reactions Allergy history not documented Medications Medications not documented Procedures Procedures not documented Immunizations Immunizations not documented Plan of Treatment Planned Observations Planned Goals not documented Results No Known Results Results not documented
[2019-06-21] MEDS ORDERED: ONDANSETRON INJ 2 MG/ML 2 ML VIAL IV STA (18:32)
[2019-06-21] MEDS ORDERED: SODIUM CHLORIDE 0.9% 1000ML 1,000 ML IV SCH (18:45)
--- NOTE | 2019-06-21 19:06 | XRay Report ---
XR chest 1V portable CLINICAL HISTORY: weakness COMPARISON STUDY: Chest radiograph September 12, 2018. FINDINGS: Right internal jugular Oywvtk-s-Erch is in place. There is no pneumothorax. There is no lef t pleural effusion. There is a suspected right pleural effusion with possible subpulmonic component. There is no evidence for pulmonary edema or pneumonia. Cardiomediastinal silhouette is stable. IMPRESSION: 1. Suspected right pleural effusion with subpulmonic component. Radiographic follow-up is recommended . 2. No evidence for pulmonary edema or pneumonia. Electronically signed by: Boubacar Gamble M.D. 06/21/2019 7:05 PM
[2019-06-21] MEDS ORDERED: SODIUM CHLORIDE 0.9% 250 ML IV PRN ×2 (19:20→23:57)
[2019-06-21 19:23] LABS: INR 1.2 (0.9-1.1); Prothrombin Time 11.8 Seconds (9.0-12.0)
[2019-06-21 19:24] LABS: iSTAT Creatinine 1.2 mg/dl (0.6-1.3); iSTAT Hemoglobin 5.8 g/dl (14.0-18.0); iSTAT Ionized Calcium 1.22 mmol/l (1.12-1.32); iSTAT Potassium 3.5 mEq/L (3.3-5.0)
[2019-06-21 19:26] LABS: Hematocrit (blood only) 16.1 % (42-52); Hemoglobin 5.7 g/dL (14.0-18.0); Mean Corpuscular Hemoglobin 37.3 pg (25-34); Mean Corpuscular Hgb Conc 35.4 g/dL (32-36); Mean Corpuscular Volume 105.2 fL (80-100); RDW Standard Deviation 57.6 fL (36.4-46.3); Red Blood Count 1.53 M/uL (4.7-6.1)
[2019-06-21 19:33] LABS: Alanine Aminotransferase 26 U/L (12-78); Albumin Level 3.9 gm/dl (3.4-5.0); Aspartate Aminotransferase 23 U/L (15-37); Blood Urea Nitrogen 19 mg/dl (7-18); Calcium 9.2 mg/dl (8.5-10.1); Carbon Dioxide 25 mmol/L (21-32); Chloride 105 mmol/L (98-107); Creatinine Clr Calc Pharmacy 39.5 ml/min; Est GFR (African American) 59.6; Est GFR (Non-African American) 51.5; Glucose 171 mg/dl (70-99); Potassium 3.4 mmol/L (3.5-5.1); Sodium 140 mmol/L (136-145)
[2019-06-21] MEDS ORDERED: POTASSIUM CHLORIDE 20 MEQ TABCR PO STA (19:39)
[2019-06-21 19:44] LABS: Albumin Globulin Ratio 0.9 (0.9-2); Alkaline Phosphatase 100 U/L (45-117); Bilirubin,Total 0.7 mg/dl (0.2-1); Globulin 4.5 gm/dl (2.5-4.0); Total Protein 8.4 gm/dl (6.4-8.2); Troponin I < 0.015 ng/ml (0-0.045)
--- NOTE | 2019-06-21 19:54 | Emergency Department Note ---
Entered by Royer Mas acting as a scribe for History of Present Illness General Chief complaint: Shortness of Breath/Dyspnea Stated complaint: SHORTNESS OF BREATH Time Seen by Provider: 06/21/19 18:22 Source: patient History of Present Illness Provider complaint: Shortness of breath Onset (ago): hour(s) (This afternoon) Location: chest Pain Consistency: + constant Maximum Pain Intensity: 9 Current Pain Intensity: 9 Relieved By: + none Exacerbated By: + movement Associated symptoms: + denies other symptoms (Pain or swelling in lower extremities ), + cough, + fever/chills (No fevers ), + nausea/vomiting (No vomiting), + shortness of breath and + weakness; no chest pain and no loss of appetite The patient is a 73 year old male who presents to the Emergency Room with complaints of constant shortness of breath that started this afternoon. The patient states that around the time of onset of his breathing issues he also developed shakes and chills. The patient rates the severity of his symptoms as a 9/10 and notes his shortness of breath is worse with exertion. 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 The family also notes that the patient has had increased weakness over the past couple of days. The patient reports having an occasional cough as well. Currently, the patient endorses some nausea, but denies any vomiting. He also denies any fevers, diarrhea, urinary symptoms, melena, hematochezia, or abdominal pain. Home Medications Home Medications Medication Instructions Recorded Confirmed Type acetaminophen [Tylenol Extra 1,000 mg PO DIRECTED PRN 06/21/19 06/21/19 History Strength] acyclovir 200 mg PO TID 06/21/19 06/21/19 History metoprolol tartrate 12.5 mg PO BID 06/21/19 06/21/19 History sertraline 50 mg PO QAM 06/21/19 06/21/19 History thiamine mononitrate (vit B1) 100 mg PO QAM 06/21/19 06/21/19 History Allergies Allergy/AdvReac Type Severity Reaction Status Date / Time Cephalosporins Allergy Unknown Unknown Verified 06/21/19 19:41 tetanus toxoid, adsorbed Allergy Unknown Unknown Verified 06/21/19 19:41 Past Med/Surg History Medical History AML (acute myeloid leukemia) Cancer H/O hepatic failure Hernia Myelodysplastic syndrome Surgical History H/O hernia repair Family History Other Family history non-contributory Social History Preferred Language: Citizen Of [place] Communication Ability: Effective Dsp Engineer Required: No Beliefs That Will Affect Care: None Current Living Situation: Alone Feels Safe at Home: Yes Smoking Status: Former smoker Hx Alcohol Use: No Hx Substance Use: No Review of Systems See HPI for pertinent positives & negatives. and A total of 10 systems reviewed and were otherwise negative Physical Exam Vital Signs Vital Signs - 24 hr 06/21/19 18:17 06/21/19 19:08 06/21/19 19:26 Temperature 36.3 C L Temperature Source Oral Sepsis Recent Fever Within 48 Hours No Sepsis New/Unexplained Change in Mental Status No Sepsis Action Taken by Nursing No Action Required Pulse Rate 69 Pulse Rate [Right] 98 H Pulse Rhythm [Right] Regular Pulse Strength [Right] Normal Respiratory Rate 18 16 Respiratory Effort / Characteristics Non-Labored Spontaneous Respiratory Depth Normal Blood Pressure 86/49 L Blood Pressure [Right Arm] 130/55 L Blood Pressure Mean 61 Blood Pressure Mean [Right Arm] 80 Blood Pressure Position Sitting Pulse Oximetry 99 96 Oxygen Delivery Method Room Air Room Air Room Air CONSTITUTIONAL/VITAL SIGNS: Reviewed / noted above. GENERAL: Appears pale and weak. INTEGUMENTARY: Warm, dry, and [place]. HEAD: Normocephalic. EYES: without scleral icterus or trauma. ENT/OROPHARYNX: clear and moist. LYMPHADENOPATHY/NECK: Is supple without lymphadenopathy or meningismus. RESPIRATORY: Lungs clear and equal. CARDIOVASCULAR: Regular rate and rhythm. GI/ABDOMEN: Soft and nontender. No organomegaly or pulsatile mass. No rebound or guarding. Normal bowel sounds. RECTAL: Light brown stool that is heme negative. EXTREMITIES: Warm and well perfused. BACK: No CVA tenderness. NEUROLOGICAL: Intact without focal deficits. PSYCHIATRIC: normal affect. MUSCULOSKELETAL: Normally developed with good muscle tone. Course 1825: Past medical records reviewed. The patient was evaluated in room A09B, and a complete history and physical examination were performed. 192: I reevaluated the patient and updated him on lab results. The patient consented to a blood transfusion. I also performed a rectal exam. 1932: [facility]'s [facility]. He is going to accept the patient for further evaluation. Consultations Consultation #1: I spoke to Dr. Richy Aguero about the patient's case. He is going to accept the patient for further evaluation. Time: 19:33 Administered Medications Discontinued Medications Sodium Chloride (Nss 1000ml) 1,000 mls @ 999 mls/hr IV .Q1H1M STEPHEN Stop: 06/21/19 19:45 Last Admin: 06/21/19 19:03 Dose: 999 mls/hr Documented by: [id number] Ondansetron HCl (Zofran) 4 mg IV NOW STA Stop: 06/21/19 18:33 Last Admin: 06/21/19 19:03 Dose: 4 mg Documented by: [id number] Medical Decision Making Differential Diagnosis Differential Diagnosis includes but is not limited to dehydration, stroke, anemia, hypoglycemia, hyponatremia, hypernatremia, urinary tract infection, pneumonia, bronchitis, sepsis, gastroenteritis, additional abdominal pathology, metabolic abnormalities and infections. Medical Records Attestation: I reviewed the patient's medical records. Home Medications Current Medication List: was personally reviewed by me Laboratory Data Attestation: I reviewed the patient's lab results. Result diagrams: 06/21/19 18:59 06/21/19 18:59 Lab Results 06/21/19 06/21/19 06/21/19 Range/Units 18:59 18:59 18:59 WBC 6.30 (4.8-10.8) K/uL RBC 1.53 L (4.7-6.1) M/uL Hgb 5.7 L* (14.0-18.0) g/dL POC Hgb (14.0-18.0) g/dl Hct 16.1 L* (42-52) % POC Hct (42-52) % MCV 105.2 H (80-100) fL MCH 37.3 H (25-34) pg MCHC 35.4 (32-36) g/dL RDW Std Deviation 57.6 H (36.4-46.3) fL RDW Coeff of Kamar 15.0 H (11.5-14.5) % PT 11.8 (9.0-12.0) Seconds INR 1.2 H (0.9-1.1) POC Sodium (135-144) mEq/L Sodium 140 (136-145) mmol/L POC Potassium (3.3-5.0) mEq/L Potassium 3.4 L (3.5-5.1) mmol/L POC Chloride (101-112) mEq/L Chloride 105 (98-107) mmol/L Carbon Dioxide 25 (21-32) mmol/L POC Total CO2 (24-31) mEq/l Anion Gap 10.0 (3-11) POC Anion Gap (16-25) mmol/L POC BUN (7-18) mg/dl BUN 19 H (7-18) mg/dl Creatinine 1.34 (0.6-1.4) mg/dl POC Creatinine (0.6-1.3) mg/dl Est Cr Clr Drug Dosing 39.5 ml/min Est GFR ( Amer) 59.6 Est GFR (Non-Af Amer) 51.5 BUN/Creatinine Ratio 14.0 (10-20) Glucose 171 H (70-99) mg/dl POC Glucose (other) (70-99) mg/dl POC Lactic Acid Tl (0.90-1.70) mmol/L Calcium 9.2 (8.5-10.1) mg/dl POC Ioniz Calcium Mert (1.12-1.32) mmol/l Total Bilirubin 0.7 (0.2-1) mg/dl AST 23 (15-37) U/L ALT 26 (12-78) U/L Alkaline Phosphatase 100 (45-117) U/L Troponin I < 0.015 (0-0.045) ng/ml Total Protein 8.4 H (6.4-8.2) gm/dl Albumin 3.9 (3.4-5.0) gm/dl Globulin 4.5 H (2.5-4.0) gm/dl Albumin/Globulin Ratio 0.9 (0.9-2) TSH 2.360 (0.300-4.500) uIu/ml Crossmatch 06/21/19 06/21/19 06/21/19 Range/Units 19:00 19:06 19:11 WBC (4.8-10.8) K/uL RBC (4.7-6.1) M/uL Hgb (14.0-18.0) g/dL POC Hgb 5.8 L* (14.0-18.0) g/dl Hct (42-52) % POC Hct 17 L* (42-52) % MCV (80-100) fL MCH (25-34) pg MCHC (32-36) g/dL RDW Std Deviation (36.4-46.3) fL RDW Coeff of Kamar (11.5-14.5) % PT (9.0-12.0) Seconds INR (0.9-1.1) POC Sodium 141 (135-144) mEq/L Sodium (136-145) mmol/L POC Potassium 3.5 (3.3-5.0) mEq/L Potassium (3.5-5.1) mmol/L POC Chloride 101 (101-112) mEq/L Chloride (98-107) mmol/L Carbon Dioxide (21-32) mmol/L POC Total CO2 24 (24-31) mEq/l Anion Gap (3-11) POC Anion Gap 20.0 (16-25) mmol/L POC BUN 18 (7-18) mg/dl BUN (7-18) mg/dl Creatinine (0.6-1.4) mg/dl POC Creatinine 1.2 (0.6-1.3) mg/dl Est Cr Clr Drug Dosing ml/min Est GFR ( Amer) Est GFR (Non-Af Amer) BUN/Creatinine Ratio (10-20) Glucose (70-99) mg/dl POC Glucose (other) 171 H (70-99) mg/dl POC Lactic Acid Tl 4.88 H (0.90-1.70) mmol/L Calcium (8.5-10.1) mg/dl POC Ioniz Calcium Mert 1.22 (1.12-1.32) mmol/l Total Bilirubin (0.2-1) mg/dl AST (15-37) U/L ALT (12-78) U/L Alkaline Phosphatase (45-117) U/L Troponin I (0-0.045) ng/ml Total Protein (6.4-8.2) gm/dl Albumin (3.4-5.0) gm/dl Globulin (2.5-4.0) gm/dl Albumin/Globulin Ratio (0.9-2) TSH (0.300-4.500) uIu/ml Crossmatch See Detail Imaging Data Radiologist's Impression: Radiology results as stated below per my review and the radiologist's interpretation: XR chest 1V portable CLINICAL HISTORY: weakness COMPARISON STUDY: Chest radiograph September 12, 2018. FINDINGS: Right internal jugular Outfvy-a-[place]ut is in place. There is no pneumothorax. There is no left pleural effusion. There is a suspected right pleural effusion with possible subpulmonic component. There is no evidence for pulmonary edema or pneumonia. Cardiomediastinal silhouette is stable. IMPRESSION: 1. Suspected right pleural effusion with subpulmonic component. Radiographic follow-up is recommended. 2. No evidence for pulmonary edema or pneumonia. Electronically signed by: Boubacar Gamble M.D. 06/21/2019 7:05 PM ECG Data Attestation: I personally reviewed and interpreted this ECG as follows: Indication: SOB/dyspnea and weakness Rate (beats per minute): 74 Rhythm: normal sinus Findings: no PAC, no PVC, no ST elevation and no ectopy Comparison ECG Date: from (01/18/18) Change: no significant change Blood Pressure Blood Pressure Findings: Low blood pressure Blood Pressure Disposition: further management by hospitalist AVEL Nelson This is a 73-year-old male who presents to the ED with a chief complaint of feeling cold and shaky as well as having weakness. The patient states that his symptoms started earlier today. He reports a history of leukemia/AML that has reportedly been in remission since January. He last had his hemoglobin tested about a month ago and he reports this was around 10. He denies any blood in his stools or black tarry stools. Denies any chest pains. He does report shortness of breath with exertion. His exam reveals that he is pale in color. He does appear to be generally weak having difficulty getting from the wheelchair to the bed. His blood pressure was initially slightly low. The patient's stool is guaiac negative and light brown. His hemoglobin today is 5.7. Lactic acid l evel was elevated. Metabolic panel was unremarkable. Troponin is negative, TSH was normal and a chest x-ray did not show acute process. The patient was given 1 L of normal saline IV as well as some IV Zofran for nausea. He was also typed and crossed for 2 units of blood. He apparently has antibodies in his blood that we will require at least a couple of hours to get the blood transfusion started. I did speak with the hospitalist about the patient. The patient will be admitted for further inpatient evaluation and care. Impression & Plan Severe anemia, AML (acute myeloid leukemia), Exertional dyspnea, Weakness, Acute hypotension Critical Care Time Critical Care Time: Yes Total Critical Care Time: 40 I have personally spent greater than 40 minutes of critical care time in the direct management of this patient. This includes bedside care, interpretation of diagnostic studies, and testing, discussion with consultants, patient, and f amily members, and other required patient management activities. This 40 minutes is in excess of all separately billable procedures. The scribe's documentation has been prepared under my direction and personally reviewed by me in its entirety. I confirm that the note above accurately reflects all work, treatment, procedures, and medical decision making performed by me.
[2019-06-21 19:58] LABS: Mean Platelet Volume 8.9 fL (7.4-10.4); Platelet Count 54 K/uL (130-400)
[2019-06-21 19:59] LABS: ALC (manual) 1.09 K/uL (1.2-3.4); ANC (manual) 2.41 K/uL (1.4-6.5); Blast # (manual) 0.69 K/uL (0-0); Blast Cells % (manual) 10.9 %; Eosinophils # (manual) 0.06 K/uL (0-0.5); Eosinophils % (manual) 0.9 %; Lymphocytes # (manual) 1.09 K/uL (1.2-3.4); Lymphocytes % (manual) 17.3 %; Metamyelocytes # (manual) 0.17 K/uL (0-0); Metamyelocytes % (manual) 2.7 %; Microcytosis Present; Monocytes # (manual) 1.61 K/uL (0.11-0.59); Monocytes % (manual) 25.5 %; Myelocytes # (manual) 0.28 K/uL (0-0); Myelocytes % (manual) 4.5 %; Neutrophils # (manual) 2.41 K/uL (1.4-6.5); Neutrophils % (manual) 38.2 %; Platelet Estimate Decreased (Normal)
--- NOTE | 2019-06-21 20:51 | History & Physical Report ---
Date of Service June 21, 2019 Assessment & Plan (1) SOB (shortness of breath): Secondary to symptomatic anemia Hemoglobin drop from baseline of 8 hx chronic pancytopenia hx AML sp Venetoclax chemotx, currently in remission as per repeat BM biopsy at [facility] April 2019 Right pleural effusion, with elevated BNP ? Subacute CHF R pneumonia, possible aspiration Possible sepsis in an immunocompromised patient Rule out flu Hypertension, stable Hyperglycemia probable DM given hemoglobin A1c of 6.8 last August 2018 Mood disorder, at baseline on Lexapro Past tobacco abuse Medical telemetry Transfuse PRBC to maintain hemoglobin above 7 and/or for symptomatic anemia TTE RE right pleural effusion rule out CHF Cultures, flu swab, Unasyn ISS BG goal 1 40-1 80, update hemoglobin A1c, diabetic education DVT prophylaxis. SCDs RE thrombocytopenia Full code History of Present Illness Chief Complaint: Shortness of breath Primary Care Provider: Dr. Li History obtained from patient and records. Medical history significant for HTN, AML sp chemotherapy, chronic anemia (baseline hemoglobin of 8), history hemolytic anemia as per records, anxiety/mood disorder, past tobacco abuse. Recent confinement [facility] February 2019 for neutropenic fever secondary to aspiration pneumonia. PEG tube placed to facilitate feedings for failure to thrive. Patient transitioned to senior care facility then back to home. Increasing shortness of breath noted over the last few days without fluid retention. Dry cough symptoms. No chest pain. Fever chills at home. No known sick contacts. Nausea, emesis symptoms. No abdominal pain, no diarrhea symptoms. Patient brought by son to the emergency room. 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 Medical History as above History liver failure from Tylenol toxicity Surgical History : Hernia repair, tonsillectomy/adenoidectomy, vascular device placement, finger amputation/reimplantation, PEG tube placement Family History : Cancer, diabetes Personal/Social history : Past tobacco abuse, no EtOH intake, retired truck enrique [employer]org[employer] Allergies Allergy/AdvReac Type Severity Reaction Status Date / Time Cephalosporins Allergy Unknown Unknown Verified 06/21/19 19:41 tetanus toxoid, adsorbed Allergy Unknown Unknown Verified 06/21/19 19:41 Home Medications Home Medications Medication Instructions Recorded Confirmed Type acetaminophen [Tylenol Extra 1,000 mg PO DIRECTED PRN 06/21/19 06/21/19 History Strength] acyclovir 200 mg PO TID 06/21/19 06/21/19 History metoprolol tartrate 12.5 mg PO BID 06/21/19 06/21/19 History sertraline 50 mg PO QAM 06/21/19 06/21/19 History thiamine mononitrate (vit B1) 100 mg PO QAM 06/21/19 06/21/19 History Past Med/Surg History Medical History AML (acute myeloid leukemia) Cancer H/O hepatic failure Hernia Myelodysplastic syndrome Surgical History H/O hernia repair Family History Other Family history non-contributory Social History Preferred Language: Namibian Communication Ability: Effective Maintenance Shop Welder Required: No Beliefs That Will Affect Care: None Current Living Situation: Alone Other Information That Helps Us Care for You: No Feels Safe at Home: Yes Safety Concerns: Feels Safe At This Time Smoking Status: Unknown if ever smoked Hx Alcohol Use: No Hx Substance Use: No Review of Systems Review of Systems: As per HPI, all 10 systems reviewed, all other ROS negative Physical Exam Physical Exam: GENERAL: Slightly uncomfortable, pleasant, covered in blankets, no respiratory distress SKIN: Pallor , warm HEENT: Pale palpebral conjunctivae, no ptosis, dry buccal mucosa NECK : Supple, no tenderness CHEST : Decreased breath sounds right , no tenderness HEART : RRR, no obvious murmurs ABDOMEN: Soft, PEG tube port in place, nontender EXTREMITIES : No LE swelling/tenderness, no other conspicuous deformities noted NEUROLOGIC : Coherent, no facial asymmetry, no other gross focality Results & Data Vital Signs (Past 12 Hours) Vital Signs Temp Pulse Pulse Resp BP BP Pulse Ox 06/21/19 19:26 98 H 16 130/55 L 96 06/21/19 18:17 36.3 C L 69 18 86/49 L 99 Laboratory Results Laboratory Results WBC 6.30 K/uL (4.8-10.8) 06/21/19 18:59 RBC 1.53 M/uL (4.7-6.1) L 06/21/19 18:59 Hgb 5.7 g/dL (14.0-18.0) L* 06/21/19 18:59 POC Hgb 5.8 g/dl (14.0-18.0) L* 06/21/19 19:11 Hct 16.1 % (42-52) L* 06/21/19 18:59 POC Hct 17 % (42-52) L* 06/21/19 19:11 MCV 105.2 fL (80-100) H 06/21/19 18:59 MCH 37.3 pg (25-34) H 06/21/19 18:59 MCHC 35.4 g/dL (32-36) 06/21/19 18:59 RDW Std Deviation 57.6 fL (36.4-46.3) H 06/21/19 18:59 RDW Coeff of Kamar 15.0 % (11.5-14.5) H 06/21/19 18:59 Plt Count 54 K/uL (130-400) L 06/21/19 18:59 MPV 8.9 fL (7.4-10.4) 06/21/19 18:59 Neutrophils % (Manual) 38.2 % 06/21/19 18:59 Lymphocytes % (Manual) 17.3 % 06/21/19 18:59 Monocytes % (Manual) 25.5 % 06/21/19 18:59 Eosinophils % (Manual) 0.9 % 06/21/19 18:59 Metamyelocytes % (Man) 2.7 % 06/21/19 18:59 Myelocytes % (Man) 4.5 % 06/21/19 18:59 Blast Cells % (Manual) 10.9 % 06/21/19 18:59 Neutrophils # (Manual) 2.41 K/uL (1.4-6.5) 06/21/19 18:59 Total Absolute Neuts 2.41 K/uL (1.4-6.5) 06/21/19 18:59 Lymphocytes # (Manual) 1.09 K/uL (1.2-3.4) L 06/21/19 18:59 Total Abs Lymphocytes 1.09 K/uL (1.2-3.4) L 06/21/19 18:59 Monocytes # (Manual) 1.61 K/uL (0.11-0.59) H 06/21/19 18:59 Eosinophils # (Manual) 0.06 K/uL (0-0.5) 06/21/19 18:59 Metamyelocytes # (Man) 0.17 K/uL (0-0) H 06/21/19 18:59 Myelocytes # (Manual) 0.28 K/uL (0-0) H 06/21/19 18:59 Blast Cells # (Man) 0.69 K/uL (0-0) H 06/21/19 18:59 Platelet Estimate Decreased (Normal) L 06/21/19 18:59 Microcytosis Present 06/21/19 18:59 PT 11.8 Seconds (9.0-12.0) 06/21/19 18:59 INR 1.2 (0.9-1.1) H 06/21/19 18:59 POC Sodium 141 mEq/L (135-144) 06/21/19 19:11 Sodium 140 mmol/L (136-145) 06/21/19 18:59 POC Potassium 3.5 mEq/L (3.3-5.0) 06/21/19 19:11 Potassium 3.4 mmol/L (3.5-5.1) L 06/21/19 18:59 POC Chloride 101 mEq/L (101-112) 06/21/19 19:11 Chloride 105 mmol/L (98-107) 06/21/19 18:59 Carbon Dioxide 25 mmol/L (21-32) 06/21/19 18:59 POC Total CO2 24 mEq/l (24-31) 06/21/19 19:11 Anion Gap 10.0 (3-11) 06/21/19 18:59 POC Anion Gap 20.0 mmol/L (16-25) 06/21/19 19:11 POC BUN 18 mg/dl (7-18) 06/21/19 19:11 BUN 19 mg/dl (7-18) H 06/21/19 18:59 Creatinine 1.34 mg/dl (0.6-1.4) 06/21/19 18:59 POC Creatinine 1.2 mg/dl (0.6-1.3) 06/21/19 19:11 Est Cr Clr Drug Dosing 39.5 ml/min 06/21/19 18:59 Est GFR ( Amer) 59.6 06/21/19 18:59 Est GFR (Non-Af Amer) 51.5 06/21/19 18:59 BUN/Creatinine Ratio 14.0 (10-20) 06/21/19 18:59 Glucose 171 mg/dl (70-99) H 06/21/19 18:59 POC Glucose (other) 171 mg/dl (70-99) H 06/21/19 19:11 POC Lactic Acid Tl 4.88 mmol/L (0.90-1.70) H 06/21/19 19:06 Calcium 9.2 mg/dl (8.5-10.1) 06/21/19 18:59 POC Ioniz Calcium Mert 1.22 mmol/l (1.12-1.32) 06/21/19 19:11 Total Bilirubin 0.7 mg/dl (0.2-1) 06/21/19 18:59 AST 23 U/L (15-37) 06/21/19 18:59 ALT 26 U/L (12-78) 06/21/19 18:59 Alkaline Phosphatase 100 U/L (45-117) 06/21/19 18:59 Troponin I < 0.015 ng/ml (0-0.045) 06/21/19 18:59 Total Protein 8.4 gm/dl (6.4-8.2) H 06/21/19 18:59 Albumin 3.9 gm/dl (3.4-5.0) 06/21/19 18:59 Globulin 4.5 gm/dl (2.5-4.0) H 06/21/19 18:59 Albumin/Globulin Ratio 0.9 (0.9-2) 06/21/19 18:59 TSH 2.360 uIu/ml (0.300-4.500) 06/21/19 18:59 Crossmatch See Detail 06/21/19 19:[address] chest initial read: No pulmonary embolus. Trace right pleural effusion. Mild dependent atelectasis, mild patchy groundglass opacities in the right lung. Gynecomastia. Nonspecific mediastinal/hilar lymph nodes. EEG as per my interpretation rate 75, NSR, normal axis, incomplete right bundle branch block, no ischemia
[2019-06-21] MEDS ORDERED: TRAMADOL HCL 50 MG TABLET PO PRN (22:28)
[2019-06-21] MEDS ORDERED: PROMETHAZINE HCL 12.5 MG in SODIUM CHLORIDE 0.9% 50 ML IV PRN (22:28)
[2019-06-21] MEDS ORDERED: ACETAMINOPHEN 325 MG TAB PO PRN (22:28)
[2019-06-21] MEDS ORDERED: NITROGLYCERIN SL 0.4 MG/TAB TAB SL PRN (22:28)
[2019-06-21] MEDS ORDERED: FUROSEMIDE 20 MG in SYRINGE 0 ML IV ONE (23:15)
[2019-06-21] MEDS: METOPROLOL TARTRATE 25 MG TAB PO SCH (23:16)
[2019-06-21] MEDS: ACYCLOVIR 200 MG CAP PO SCH (23:16)
[2019-06-22] MEDS ORDERED: DEXTROSE 50% 50 ML SYRINGE IV PRN (00:33)
[2019-06-22] MEDS ORDERED: CARBOHYDRATES FOR HYPOGLYCEMIA PO PRN (00:33)
[2019-06-22] MEDS ORDERED: GLUCAGON FOR INJ 1 MG VIAL SQ PRN (00:33)
[2019-06-22] MEDS ORDERED: GLUCOSE 10 TABS/TUBE PO PRN (00:33)
[2019-06-22] MEDS ORDERED: GLUCOSE 40% GEL 15 GM TUBE PO PRN (00:33)
[2019-06-22] MEDS: INSULIN ASPART 100 UNITS/ML 3 ML PEN SC SCH ×5 (00:58→21:20)
[2019-06-22] MEDS ORDERED: DOXYCYCLINE HYCLATE 100 MG in DEXTROSE 5% 100 ML IV STA (00:58)
[2019-06-22 01:49] LABS: Influenza A virus by PCR Neg for Influ A (Neg); Influenza B virus by PCR Neg for Influ B (Neg)
[2019-06-22] MEDS ORDERED: OPTIRAY 320 125ml IV PRN (02:04)
[2019-06-22 02:32] LABS: Lipase 91 U/L (73-393); Magnesium 1.8 mg/dl (1.8-2.4)
[2019-06-22 02:43] LABS: Appearance Urine Clear (Clear); Bacteria Urine Automated Negative (Negative); Bilirubin Urine Negative (Negative); Blood Urine 1+ (Negative); Color Urine Yellow; Glucose Urine UA Negative (Negative); Ketones Urine Trace (Negative); Leukocyte Esterase Urine Negative (Negative); Nitrite Urine Negative (Negative); Protein Urine Trace (Negative); RBC Urine Automated 0-4 /hpf (0-4); Specific Gravity Urine 1.037 (1.000-1.030); Urobilinogen Urine Negative (Negative); pH Urine 5.5 (4.5-7.5)
[2019-06-22] MEDS ORDERED: AMPICILLIN/SULBACTAM SOD 3,000 MG in 0.9 % SODIUM CHLORIDE 100 ML IV SCH (04:00)
[2019-06-22] MEDS ORDERED: Nursing to Pharmacy Communication ONE (05:36)
[2019-06-22 06:48] LABS: Estimated Average Glucose 163 mg/dl; Hemoglobin A1C 7.3 % (4.5-5.6)
--- NOTE | 2019-06-22 07:24 | CT Scan Report ---
CT angio chest PE protocol CLINICAL HISTORY: 73 years-old Male presenting with shortness of breath, weakness, right pleural effu erum, clinical concern for pulmonary bolus. TECHNIQUE: Multidetector CT angiography of the chest was performed after administration of intravenou s contrast. 3-D volumetric and/or maximum intensity projection (MIP) images were subsequently reconst ructed for review. IV contrast: 116 mL of Optiray 320. One or more dose lowering techniques were used consistent with the principles of ALARA (as low as reasonably achievable), including automatic expos ure control, mA or kV adjustment to individual patient size, and/or use of iterative reconstruction. COMPARISON: Chest x-ray performed the previous day. CT DOSE (mGy.cm): The estimated cumulative dose is 372.00 mGy.cm. 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 Pulmonary vasculature: The study is adequate for assessment of the pulmonary vascular tree. No filling defect within the pul monary arteries to suggest embolus. Main pulmonary artery is not enlarged. No flattening of the inter ventricular septum. No intracardiac filling defect. No reflux of contrast into the hepatic veins. Remaining chest: Soft tissues: Normal thyroid and thoracic inlet. Gynecomastia. No axillary, supraclavicular, mediasti nal, or hilar lymphadenopathy. Normal aorta. Normal heart size. Coronary artery calcification. No per icardial or pleural effusion. Upper abdomen normal. Lungs and airways: No pneumothorax. Central airways patent. Pulmonary arteries mildly enlarged relati ve to adjacent bronchi. No interlobular septal thickening. Minimal dependent changes likely atelectas is. Mild patchy peribronchovascular groundglass opacities in the right lung with an upper lobe predom inance. Mild mosaic attenuation is also noted in the left lung. Solid fissural 3 mm nodule in the sup erior segment of the left lower lobe (series 4 image 182). Musculoskeletal: Degenerative changes of the spine. Flowing anterior osteophytosis suggest diffuse id iopathic skeletal hyperostosis. IMPRESSION: 1. No evidence of pulmonary embolus. 2. Mild patchy peribronchovascular groundglass infiltrates in the right lung with an upper lobe pred ominance could relate to small airways disease versus developing bronchopneumonia or other mild pneum onitis. 3. Solid 3 mm left lower lobe nodule. Follow-up per Fleischner Society 2017 recommendations below. Summary of Fleischner Society 2017 Recommendations (H Memo et al. Guidelines for management of i ncidental pulmonary nodules detected on CT images: From the Fleischner Society 2017. Radiology 2017; 284: 228-243.) SOLID NODULES Single nodule; size < 6 mm * Low risk patients: No routine follow-up * High risk patients: Optional CT at 12 months Single nodule; size 6-8 mm * Low risk patients: CT at 6-12 months, then consider CT at 18-24 months * High risk patients: CT at 6-12 months, then at 18-24 months Single nodule; size > 8 mm * Either low or high risk patients: Considered CT at 3 months, PET/CT, or tissue sampling Multiple nodules; size < 6 mm * Low risk patients: No routine follow up * High risk patients: Optional CT at 12 months Multiple nodules; size 6-8 mm * Low risk patients: CT at 3-6 months, then consider CT at 18-24 months * High risk patients: CT at 3-6 months, then at 18-24 months Multiple nodules; size > 8 mm * Low risk patients: CT at 3-6 months, then consider at 18-24 months * High risk patients: CT at 3-6 months, then at 18-24 months SUBSOLID NODULES Single ground-glass nodule * Nodule size < 6 mm: No routine follow-up * Nodule size > or = 6 mm: CT at 6-12 months to confirm persistence, then CT every 2 years until 5 y ears Single part-solid nodule * Nodule size < 6 mm: No routine follow-up * Nodules size > or = 6 mm: CT at 3-6 months to confirm persistence. If unchanged and solid componen t remains < 6 mm, annual CT should be performed for 5 years Multiple nodules * Nodule size < 6 mm: CT at 3-6 months. If stable, consider CT at 2 and 4 years. * Nodules size > or = 6 mm: CT at 3-6 months. Subsequent management based on the most suspicious nod ule(s) NOTE: 1) These guidelines apply to incidental nodules. These guidelines do NOT apply to patients younger th an 35 years, immunocompromised patients, or patients with cancer. 2) Risk categories: * Low risk patients: Minimal or absent history of smoking and/or other known risk factors * High risk patients: History of smoking, exposure to other carcinogens, emphysema, fibrosis, upper lobe location, family history of lung cancer, etc. 3) If a nodule up to 8 mm is partly solid or is ground glass, further follow-up is required after 24 months to exclude possible slow growing adenocarcinoma. Electronically signed by: Quintin Urena M.D. 06/22/2019 7:23 AM
[2019-06-22] MEDS ORDERED: CONSULT PHARMACY STA (08:18)
[2019-06-22] MEDS: METOPROLOL TARTRATE 25 MG TAB PO SCH ×2 (08:57→21:17)
[2019-06-22] MEDS ORDERED: PIPERACILL/TAZOBAC CONSULT ACTIVE PRN (08:59)
[2019-06-22] MEDS: SERTRALINE HCL 50 MG TABLET PO SCH (08:59)
[2019-06-22] MEDS: ACYCLOVIR 200 MG CAP PO SCH ×3 (08:59→21:18)
[2019-06-22] MEDS: THIAMINE HCL 100 MG TAB PO SCH (08:59)
[2019-06-22] MEDS ORDERED: PHARMACY GLYCEMIC MGMT CONSULT SCH (09:00)
[2019-06-22] MEDS ORDERED: PIPERACILLIN/TAZOBACTAM 3.375 GM in DEXTROSE 5% 100 ML IV ONE (09:00)
[2019-06-22] MEDS ORDERED: AMPICILLIN/SULBACTAM CONSULT ACTIVE PRN (09:00)
[2019-06-22] MEDS ORDERED: AZTREONAM 2,000 MG in DEXTROSE 5% 100 ML IV SCH (09:00)
[2019-06-22] MEDS ORDERED: CONSULT PHARMACY PRN (09:04)
--- NOTE | 2019-06-22 09:27 | Pharmacy Report ---
Glycemic Control Consultation - Date of Service June 22, 2019 - Scope Scope: Glycemic Pharmacist consulted by Dr. Sewell on 06/22/19 for glycemic control and to write orders per [facility] inpatient glycemic control protocol - Objective Weight: 58.4 kg Accuchecks BSG (last 24hrs): 06/21/19 06/21/19 06/22/19 18:59 19:11 00:50 Glucose 171 H POC Glucose 115 H POC Glucose (other) 171 H 06/22/19 07:42 Glucose POC Glucose 111 H POC Glucose (other) Laboratory Data (last 24hrs): 06/21/19 18:59 Potassium 3.4 L Carbon Dioxide 25 Anion Gap 10.0 Creatinine 1.34 Est Cr Clr Drug Dosing 39.5 HbA1c: Hemoglobin A1c 7.3 % (4.5-5.6) H 06/21/19 18:59 - Recent Pertinent Medications Outpatient Anti-diabetic Regimen: * None * A1c = 7.3 % (06/21/19) Note: Patient with chronic anemia receiving PRBC so A1c may not be reliable Risk Factors for Insulin Resistance: * Infection: Pulmonary source - Zosyn and Doxycycline * Diet: Clear Liquids - Assessment & Plan Assessment & Plan: ASSESSMENT: * Patient is a 73 year-old male admitted 06/21/19 secondary to suspected pulmonary infection currently receiving IV Zosyn and Doxycycline * PMHx is significant for AML currently on chemotherapy, anemia receiving PRBC, and MDS * T2DM currently not on any antidiabetic medications at home, will utilize mealtime and correctional coverage PLAN FOR INPATIENT GLYCEMIC CONTROL: * Bolus insulin * NovoLog per scale ACHS * Goal Range: Low 110 mg/dL - High 140 mg/dL * Correction Factor: 25 mg/dL/unit * Nutritional / Prandial insulin per carb ratio of 1 unit per 15 grams CHO consumed * Please note that the plan above was derived based on current level of insulin resistance and hospital stress. These recommendations are appropriate for inpatient admission only. Plan of care upon discharge will need to be reassessed to avoid potential outpatient hypo/hyperglycemia. Thank you.
[2019-06-22 09:29] LABS: Mean Corpuscular Hgb Conc 34.5 g/dL (32-36)
[2019-06-22 09:32] LABS: BUN Creatinine Ratio 13.9 (10-20); Calcium 8.7 mg/dl (8.5-10.1); Creatinine Clr Calc Pharmacy 45.8 ml/min; Est GFR (African American) 71.7; Est GFR (Non-African American) 61.9; Potassium 3.1 mmol/L (3.5-5.1)
[2019-06-22] MEDS ORDERED: COUGH DROP (SUGAR FREE) LOZ 24 LOZ/1 BOX BUCCAL PRN (09:42)
[2019-06-22 09:47] LABS: Folate (Folic Acid) 6.67 ng/ml (>5.38)
[2019-06-22 09:49] LABS: Ferritin 3427.9 ng/ml (8-388)
[2019-06-22 10:05] LABS: Hematocrit (blood only) 22.3 % (42-52); Hemoglobin 7.7 g/dL (14.0-18.0); Mean Corpuscular Hemoglobin 34.2 pg (25-34); Mean Corpuscular Volume 99.1 fL (80-100); Mean Platelet Volume 9.2 fL (7.4-10.4); Platelet Count 39 K/uL (130-400); RDW Coefficient of Variation 17.2 % (11.5-14.5); Red Blood Count 2.25 M/uL (4.7-6.1); White Blood Count 4.76 K/uL (4.8-10.8)
[2019-06-22 10:06] LABS: ALC (manual) 1.29 K/uL (1.2-3.4); ANC (manual) 1.78 K/uL (1.4-6.5); Blast # (manual) 0.54 K/uL (0-0); Blast Cells % (manual) 11.3 %; Lymphocytes # (manual) 1.29 K/uL (1.2-3.4); Monocytes # (manual) 1.08 K/uL (0.11-0.59); Monocytes % (manual) 22.6 %; Myelocytes # (manual) 0.08 K/uL (0-0); Myelocytes % (manual) 1.7 %; Neutrophils # (manual) 1.78 K/uL (1.4-6.5); Neutrophils % (manual) 37.4 %; RBC Morphology Unremarkable
[2019-06-22 10:21] LABS: Reticulocyte % 0.6 % (0.5-2.0); Reticulocytes # < 0.02 10^6/uL (0.02-0.10)
--- NOTE | 2019-06-22 10:36 | Infectious Disease Consult ---
Date of Consultation June 22, 2019 Assessment & Plan (1) SOB (shortness of breath): suspect related to anemia and not pna. If concerned for aspiration, would suggest short - 7 day course of Augmentin. History of Present Illness Attending Physician: Chuy Sewell MD pt admitted with sob, states when he first stands up and begins to walk he feels sob. no cp, no cough, no wheeze, no chung, no sob at rest. found to have a hgb of 5.7, sob thought secondary to anemia but had CTA done in ER, no evidence of PE. RUL ? pneumonitis, ID consulted for pna. has h/o aspiration and feeding tube. Has h/o AML - immunosuppressed. was started on zosyn and doxy, tolerating well. asking to go home on my exam today. no f/c. no cp, sob on my exam. no abd pain, no n/v/d. eating well at home, denies aspiration, no gu symptoms. wbc 6.3, creat 1.3 UA negative, flu swab negative. blood cultures pending. Allergies Allergy/AdvReac Type Severity Reaction Status Date / Time Cephalosporins Allergy Unknown Unknown Verified 06/21/19 19:41 tetanus toxoid, adsorbed Allergy Unknown Unknown Verified 06/21/19 19:41 Home Medications Home Medications Medication Instructions Recorded Confirmed Type acetaminophen [Tylenol Extra 1,000 mg PO DIRECTED PRN 06/21/19 06/21/19 History Strength] acyclovir 200 mg PO TID 06/21/19 06/21/19 History metoprolol tartrate 12.5 mg PO BID 06/21/19 06/21/19 History sertraline 50 mg PO QAM 06/21/19 06/21/19 History thiamine mononitrate (vit B1) 100 mg PO QAM 06/21/19 06/21/19 History Patient History Medical History AML (acute myeloid leukemia) Cancer H/O hepatic failure Hernia Myelodysplastic syndrome Surgical History H/O hernia repair Family History Other Family history non-contributory Social History Preferred Language: Albanian Communication Ability: Effective Research Psychologist Required: No Beliefs That Will Affect Care: None Current Living Situation: Alone Other Information That Helps Us Care for You: No Feels Safe at Home: Yes Safety Concerns: Feels Safe At This Time Smoking Status: Unknown if ever smoked Hx Alcohol Use: No Hx Substance Use: No Review of Systems Review of Systems: All systems reviewed & are unremarkable except as noted in HPI & below Physical Exam Constitutional: WD/WN, vitals as above Eyes: PERRL, conjunctivae normal, anicteric sclerae ENMT: external ear and nose normal, oropharynx normal Neck: normal visual inspection Respiratory: normal respiratory effort, lungs clear to auscultation Cardiovascular: RRR, no murmur, no edema Gastrointestinal (Abdomen): normal bowel sounds, soft, nontender, no hepatosplenomegaly Musculoskeletal: no cyanosis or clubbing, extremities motor strength 5/5 Skin: no rashes, warm and dry Psychiatric: A+Ox3, euthymic affect Results & Data Vital Signs (Past 12 Hours) Vital Signs Temp Pulse Pulse Resp BP BP Pulse Ox 06/22/19 06:21 36.6 C 58 L 18 134/64 99 06/22/19 05:54 36.6 C 60 20 141/61 H 98 06/22/19 05:26 36.7 C 56 L 16 143/57 H 100 06/22/19 05:24 37 C 57 L 18 137/67 97 06/22/19 05:10 37.0 C 59 L 16 131/66 97 06/22/19 04:46 36.8 C 60 18 122/69 96 06/22/19 04:41 37.1 C 67 20 125/55 L 94 06/22/19 04:37 36.8 C 60 18 122/62 96 06/22/19 03:36 36.8 C 66 18 123/58 L 97 06/22/19 03:04 36.8 C 62 18 113/52 L 97 06/22/19 02:35 36.7 C 65 18 109/54 L 96 06/22/19 02:20 36.8 C 66 18 111/54 L 95 06/22/19 02:04 37.1 C 67 20 126/55 L 96 06/22/19 01:03 81 06/22/19 00:05 38.3 C H 68 20 111/63 94 PG Care Time/CCT Total # of Minutes Spent Total Time Spent with Patient: Total time spent is greater than 50% in coordination of care (as documented) at patient's floor/unit and/or counseling patient:
[2019-06-22] MEDS: PIPERACILLIN/TAZOBACTAM 3.375 GM in DEXTROSE 5% 100 ML IV SCH ×2 (12:43→23:00)
[2019-06-22] MEDS ORDERED: POTASSIUM CHLORIDE 10 MEQ TABCR PO STA (13:32)
--- NOTE | 2019-06-22 16:40 | Hospitalist Progress Note ---
Date of Service June 22, 2019 Assessment & Plan (1) Severe anemia: 73-year-old male with history of AML in remission, hypertension Presenting with shortness of breath SEVERE ANEMIA, THROMBOCYTOPENIA IN A PATIENT WITH AML IN REMISSION Hemoglobin 5.7 on admission, received 2 units of packed RBCs, hemoglobin 7.7 LDH within normal limits 176 Follows with [facility] Discussed with chemical mixer/oncologist on-call Dr. Sandro Escobar POSSIBLE RIGHT SIDED PNEUMONIA Admitted with fever 38.2, also noted to have fever per admission history Blood cultures pending Zosyn and doxycycline ordered empirically Infectious disease consultation placed DIABETES TYPE 2, NEW DIAGNOSIS A1c 7.3 Pharmacy glycemic control consulted visual educator consult Will need metformin on discharge HYPERTENSION Stable Continue metoprolol DVT prophylaxis SCDs only in light of thrombocytopenia Patient ambulatory Disposition lives at home with family Will need PT and OT evaluation Subjective Follow-up for anemia, shortness of breath Seen resting in bedside chair, comfortable, in good spirits, very pleasant States he feels improved today compared to yesterday Shortness of breath resolving, intermittent cough, nonproductive, denies fevers or chills No chest pain, palpitations, dizziness No bleeding Denies other symptoms Review of Systems Review of Systems: All systems reviewed & are unremarkable except as noted in HPI & below Physical Exam Physical Exam: General- oriented x 3, not in distress, speaks in sentences with no effort or accessory muscle use Head- atraumatic Eyes- PERRL, EOMI, anicteric ENT- oropharynx clear Neck- supple, no JVD, no adenopathy, no thyromegaly; carotids +2/2, no bruits appreciated Lungs- clear to auscultation bilaterally, no rales/wheezes Heart- normal rate, regular rhythm; no murmur, no gallop, no rub appreciated Port on the right chest wall-no signs of infection Abdomen- normal bowel sounds, nondistended, soft, nontender, no masses or hepatosplenomegaly PEG tube in place, insertion site with no signs of infection Extremities- no pretibial edema, no calf tenderness; peripheral pulses intact Neuro- alert, oriented x 3; CN 2-12 grossly intact; motor 5/5 bilaterally;sensation 100% on all extremities; no other gross focal neurologic deficits Skin- warm & dry Results & Data Vital Signs (Past 12 Hours) Vital Signs Temp Pulse Pulse Resp BP BP Pulse Ox 06/22/19 15:08 36.9 C 56 L 20 127/79 98 06/22/19 11:37 68 06/22/19 11:11 36.3 C L 55 L 18 148/71 H 100 06/22/19 06:21 36.6 C 58 L 18 134/64 99 06/22/19 05:54 36.6 C 60 20 141/61 H 98 06/22/19 05:26 36.7 C 56 L 16 143/57 H 100 06/22/19 05:24 37 C 57 L 18 137/67 97 06/22/19 05:10 37.0 C 59 L 16 131/66 97 06/22/19 04:46 36.8 C 60 18 122/69 96 06/22/19 04:41 37.1 C 67 20 125/55 L 94 06/22/19 04:37 36.8 C 60 18 122/62 96 Laboratory Results Laboratory Results - last 24 hr 06/21/19 06/21/19 06/21/19 18:59 18:59 18:59 WBC 6.30 RBC 1.53 L Hgb 5.7 L* POC Hgb Hct 16.1 L* POC Hct MCV 105.2 H MCH 37.3 H MCHC 35.4 RDW Std Deviation 57.6 H RDW Coeff of Kamar 15.0 H Plt Count 54 L MPV 8.9 Reticulocyte % (Auto) Reticulocyte # Neutrophils % (Manual) 38.2 Lymphocytes % (Manual) 17.3 Monocytes % (Manual) 25.5 Eosinophils % (Manual) 0.9 Metamyelocytes % (Man) 2.7 Myelocytes % (Man) 4.5 Blast Cells % (Manual) 10.9 Neutrophils # (Manual) 2.41 Total Absolute Neuts 2.41 Lymphocytes # (Manual) 1.09 L Total Abs Lymphocytes 1.09 L Monocytes # (Manual) 1.61 H Eosinophils # (Manual) 0.06 Metamyelocytes # (Man) 0.17 H Myelocytes # (Manual) 0.28 H Blast Cells # (Man) 0.69 H Platelet Estimate Decreased L RBC Morphology Microcytosis Present PT 11.8 INR 1.2 H POC Sodium Sodium 140 POC Potassium Potassium 3.4 L POC Chloride Chloride 105 Carbon Dioxide 25 POC Total CO2 Anion Gap 10.0 POC Anion Gap POC BUN BUN 19 H Creatinine 1.34 POC Creatinine Est Cr Clr Drug Dosing 39.5 Est GFR ( Amer) 59.6 Est GFR (Non-Af Amer) 51.5 BUN/Creatinine Ratio 14.0 Glucose 171 H POC Glucose POC Glucose (other) Estimat Average Glucose Hemoglobin A1c POC Lactic Acid Tl Lactate Calcium 9.2 POC Ioniz Calcium Mert Magnesium 1.8 Iron TIBC Transferrin Ferritin Total Bilirubin 0.7 AST 23 ALT 26 Alkaline Phosphatase 100 Lactate Dehydrogenase Troponin I < 0.015 NT-Pro-B Natriuret Pep Total Protein 8.4 H Albumin 3.9 Globulin 4.5 H Albumin/Globulin Ratio 0.9 Lipase 91 Vitamin B12 Folate Procalcitonin TSH 2.360 Urine Color Urine Appearance Urine pH Ur Specific Gilbert Urine Protein Urine Glucose (UA) Urine Ketones Urine Blood Urine Nitrite Urine Bilirubin Urine Urobilinogen Ur Leukocyte Esterase Urine WBC (Auto) Urine RBC (Auto) U Hyaline Cast (Auto) U Epithel Cells (Auto) Urine Bacteria (Auto) Influenza Type A (PCR) Influenza Type B (PCR) Blood Type Antibody Screen Antibody Identification Antibody ID Comment Crossmatch 06/21/19 06/21/19 06/21/19 18:59 18:59 18:59 WBC RBC Hgb POC Hgb Hct POC Hct MCV MCH MCHC RDW Std Deviation RDW Coeff of Kamar Plt Count MPV Reticulocyte % (Auto) Reticulocyte # Neutrophils % (Manual) Lymphocytes % (Manual) Monocytes % (Manual) Eosinophils % (Manual) Metamyelocytes % (Man) Myelocytes % (Man) Blast Cells % (Manual) Neutrophils # (Manual) Total Absolute Neuts Lymphocytes # (Manual) Total Abs Lymphocytes Monocytes # (Manual) Eosinophils # (Manual) Metamyelocytes # (Man) Myelocytes # (Manual) Blast Cells # (Man) Platelet Estimate RBC Morphology Microcytosis PT INR POC Sodium Sodium POC Potassium Potassium POC Chloride Chloride Carbon Dioxide POC Total CO2 Anion Gap POC Anion Gap POC BUN BUN Creatinine POC Creatinine Est Cr Clr Drug Dosing Est GFR ( Amer) Est GFR (Non-Af Amer) BUN/Creatinine Ratio Glucose POC Glucose POC Glucose (other) Estimat Average Glucose 163 Hemoglobin A1c 7.3 H POC Lactic Acid Tl Lactate Calcium POC Ioniz Calcium Mert Magnesium Iron TIBC Transferrin Ferritin Total Bilirubin AST ALT Alkaline Phosphatase Lactate Dehydrogenase 176 Troponin I NT-Pro-B Natriuret Pep 1618 H Total Protein Albumin Globulin Albumin/Globulin Ratio Lipase Vitamin B12 Folate Procalcitonin TSH Urine Color Urine Appearance Urine pH Ur Specific Gilbert Urine Protein Urine Glucose (UA) Urine Ketones Urine Blood Urine Nitrite Urine Bilirubin Urine Urobilinogen Ur Leukocyte Esterase Urine WBC (Auto) Urine RBC (Auto) U Hyaline Cast (Auto) U Epithel Cells (Auto) Urine Bacteria (Auto) Influenza Type A (PCR) Influenza Type B (PCR) Blood Type Antibody Screen Antibody Identification Antibody ID Comment Crossmatch 06/21/19 06/21/19 06/21/19 18:59 19:00 19:06 WBC RBC Hgb POC Hgb Hct POC Hct MCV MCH MCHC RDW Std Deviation RDW Coeff of Kamar Plt Count MPV Reticulocyte % (Auto) Reticulocyte # Neutrophils % (Manual) Lymphocytes % (Manual) Monocytes % (Manual) Eosinophils % (Manual) Metamyelocytes % (Man) Myelocytes % (Man) Blast Cells % (Manual) Neutrophils # (Manual) Total Absolute Neuts Lymphocytes # (Manual) Total Abs Lymphocytes Monocytes # (Manual) Eosinophils # (Manual) Metamyelocytes # (Man) Myelocytes # (Manual) Blast Cells # (Man) Platelet Estimate RBC Morphology Microcytosis PT INR POC Sodium Sodium POC Potassium Potassium POC Chloride Chloride Carbon Dioxide POC Total CO2 Anion Gap POC Anion Gap POC BUN BUN Creatinine POC Creatinine Est Cr Clr Drug Dosing Est GFR ( Amer) Est GFR (Non-Af Amer) BUN/Creatinine Ratio Glucose POC Glucose POC Glucose (other) Estimat Average Glucose Hemoglobin A1c POC Lactic Acid Tl 4.88 H Lactate Calcium POC Ioniz Calcium Mert Magnesium Iron TIBC Transferrin Ferritin Total Bilirubin AST ALT Alkaline Phosphatase Lactate Dehydrogenase Troponin I NT-Pro-B Natriuret Pep Total Protein Albumin Globulin Albumin/Globulin Ratio Lipase Vitamin B12 Folate Procalcitonin 0.05 TSH Urine Color Urine Appearance Urine pH Ur Specific Gilbert Urine Protein Urine Glucose (UA) Urine Ketones Urine Blood Urine Nitrite Urine Bilirubin Urine Urobilinogen Ur Leukocyte Esterase Urine WBC (Auto) Urine RBC (Auto) U Hyaline Cast (Auto) U Epithel Cells (Auto) Urine Bacteria (Auto) Influenza Type A (PCR) Influenza Type B (PCR) Blood Type O Positive Antibody Screen POSITIVE A Antibody Identification Anti-K Antibody ID Comment Crossmatch See Detail 06/21/19 06/21/19 06/22/19 19:11 20:33 00:50 WBC RBC Hgb POC Hgb 5.8 L* Hct POC Hct 17 L* MCV MCH MCHC RDW Std Deviation RDW Coeff of Kamar Plt Count MPV Reticulocyte % (Auto) Reticulocyte # Neutrophils % (Manual) Lymphocytes % (Manual) Monocytes % (Manual) Eosinophils % (Manual) Metamyelocytes % (Man) Myelocytes % (Man) Blast Cells % (Manual) Neutrophils # (Manual) Total Absolute Neuts Lymphocytes # (Manual) Total Abs Lymphocytes Monocytes # (Manual) Eosinophils # (Manual) Metamyelocytes # (Man) Myelocytes # (Manual) Blast Cells # (Man) Platelet Estimate RBC Morphology Microcytosis PT INR POC Sodium 141 Sodium POC Potassium 3.5 Potassium POC Chloride 101 Chloride Carbon Dioxide POC Total CO2 24 Anion Gap POC Anion Gap 20.0 POC BUN 18 BUN Creatinine POC Creatinine 1.2 Est Cr Clr Drug Dosing Est GFR ( Amer) Est GFR (Non-Af Amer) BUN/Creatinine Ratio Glucose POC Glucose 115 H POC Glucose (other) 171 H Estimat Average Glucose Hemoglobin A1c POC Lactic Acid Tl Lactate 1.9 Calcium POC Ioniz Calcium Mert 1.22 Magnesium Iron TIBC Transferrin Ferritin Total Bilirubin AST ALT Alkaline Phosphatase Lactate Dehydrogenase Troponin I NT-Pro-B Natriuret Pep Total Protein Albumin Globulin Albumin/Globulin Ratio Lipase Vitamin B12 Folate Procalcitonin TSH Urine Color Urine Appearance Urine pH Ur Specific Gilbert Urine Protein Urine Glucose (UA) Urine Ketones Urine Blood Urine Nitrite Urine Bilirubin Urine Urobilinogen Ur Leukocyte Esterase Urine WBC (Auto) Urine RBC (Auto) U Hyaline Cast (Auto) U Epithel Cells (Auto) Urine Bacteria (Auto) Influenza Type A (PCR) Influenza Type B (PCR) Blood Type Antibody Screen Antibody Identification Antibody ID Comment Crossmatch 06/22/19 06/22/19 06/22/19 01:09 02:13 07:42 WBC RBC Hgb POC Hgb Hct POC Hct MCV MCH MCHC RDW Std Deviation RDW Coeff of Kamar Plt Count MPV Reticulocyte % (Auto) Reticulocyte # Neutrophils % (Manual) Lymphocytes % (Manual) Monocytes % (Manual) Eosinophils % (Manual) Metamyelocytes % (Man) Myelocytes % (Man) Blast Cells % (Manual) Neutrophils # (Manual) Total Absolute Neuts Lymphocytes # (Manual) Total Abs Lymphocytes Monocytes # (Manual) Eosinophils # (Manual) Metamyelocytes # (Man) Myelocytes # (Manual) Blast Cells # (Man) Platelet Estimate RBC Morphology Microcytosis PT INR POC Sodium Sodium POC Potassium Potassium POC Chloride Chloride Carbon Dioxide POC Total CO2 Anion Gap POC Anion Gap POC BUN BUN Creatinine POC Creatinine Est Cr Clr Drug Dosing Est GFR ( Amer) Est GFR (Non-Af Amer) BUN/Creatinine Ratio Glucose POC Glucose 111 H POC Glucose (other) Estimat Average Glucose Hemoglobin A1c POC Lactic Acid Tl Lactate Calcium POC Ioniz Calcium Mert Magnesium Iron TIBC Transferrin Ferritin Total Bilirubin AST ALT Alkaline Phosphatase Lactate Dehydrogenase Troponin I NT-Pro-B Natriuret Pep Total Protein Albumin Globulin Albumin/Globulin Ratio Lipase Vitamin B12 Folate Procalcitonin TSH Urine Color Yellow Urine Appearance Clear Urine pH 5.5 Ur Specific Gilbert 1.037 H Urine Protein Trace H Urine Glucose (UA) Negative Urine Ketones Trace H Urine Blood 1+ H Urine Nitrite Negative Urine Bilirubin Negative Urine Urobilinogen Negative Ur Leukocyte Esterase Negative Urine WBC (Auto) 1-5 Urine RBC (Auto) 0-4 U Hyaline Cast (Auto) 5-10 H U Epithel Cells (Auto) 10-20 H Urine Bacteria (Auto) Negative Influenza Type A (PCR) Neg for Influ A Influenza Type B (PCR) Neg for Influ B Blood Type Antibody Screen Antibody Identification Antibody ID Comment Crossmatch 06/22/19 06/22/19 06/22/19 09:01 09:01 09:01 WBC 4.76 L RBC 2.25 L Hgb 7.7 L POC Hgb Hct 22.3 L POC Hct MCV 99.1 D MCH 34.2 H MCHC 34.5 RDW Std Deviation 61.0 H RDW Coeff of Kamar 17.2 H Plt Count 39 L MPV 9.2 Reticulocyte % (Auto) 0.6 Reticulocyte # < 0.02 L Neutrophils % (Manual) 37.4 Lymphocytes % (Manual) 27.0 Monocytes % (Manual) 22.6 Eosinophils % (Manual) Metamyelocytes % (Man) Myelocytes % (Man) 1.7 Blast Cells % (Manual) 11.3 Neutrophils # (Manual) 1.78 Total Absolute Neuts 1.78 Lymphocytes # (Manual) 1.29 Total Abs Lymphocytes 1.29 Monocytes # (Manual) 1.08 H Eosinophils # (Manual) Metamyelocytes # (Man) Myelocytes # (Manual) 0.08 H Blast Cells # (Man) 0.54 H Platelet Estimate RBC Morphology Unremarkable Microcytosis PT INR POC Sodium Sodium 139 POC Potassium Potassium 3.1 L POC Chloride Chloride 106 Carbon Dioxide 27 POC Total CO2 Anion Gap 7.0 POC Anion Gap POC BUN BUN 16 Creatinine 1.15 POC Creatinine Est Cr Clr Drug Dosing 45.8 Est GFR ( Amer) 71.7 Est GFR (Non-Af Amer) 61.9 BUN/Creatinine Ratio 13.9 Glucose 145 H POC Glucose POC Glucose (other) Estimat Average Glucose Hemoglobin A1c POC Lactic Acid Tl Lactate Calcium 8.7 POC Ioniz Calcium Mert Magnesium Iron 173 TIBC 187 L Transferrin 127 L Ferritin 3427.9 H Total Bilirubin AST ALT Alkaline Phosphatase Lactate Dehydrogenase Troponin I NT-Pro-B Natriuret Pep Total Protein Albumin Globulin Albumin/Globulin Ratio Lipase Vitamin B12 399 Folate 6.67 Procalcitonin TSH Urine Color Urine Appearance Urine pH Ur Specific Gilbert Urine Protein Urine Glucose (UA) Urine Ketones Urine Blood Urine Nitrite Urine Bilirubin Urine Urobilinogen Ur Leukocyte Esterase Urine WBC (Auto) Urine RBC (Auto) U Hyaline Cast (Auto) U Epithel Cells (Auto) Urine Bacteria (Auto) Influenza Type A (PCR) Influenza Type B (PCR) Blood Type Antibody Screen Antibody Identification Antibody ID Comment Crossmatch 06/22/19 11:47 WBC RBC Hgb POC Hgb Hct POC Hct MCV MCH MCHC RDW Std Deviation RDW Coeff of Kamar Plt Count MPV Reticulocyte % (Auto) Reticulocyte # Neutrophils % (Manual) Lymphocytes % (Manual) Monocytes % (Manual) Eosinophils % (Manual) Metamyelocytes % (Man) Myelocytes % (Man) Blast Cells % (Manual) Neutrophils # (Manual) Total Absolute Neuts Lymphocytes # (Manual) Total Abs Lymphocytes Monocytes # (Manual) Eosinophils # (Manual) Metamyelocytes # (Man) Myelocytes # (Manual) Blast Cells # (Man) Platelet Estimate RBC Morphology Microcytosis PT INR POC Sodium Sodium POC Potassium Potassium POC Chloride Chloride Carbon Dioxide POC Total CO2 Anion Gap POC Anion Gap POC BUN BUN Creatinine POC Creatinine Est Cr Clr Drug Dosing Est GFR ( Amer) Est GFR (Non-Af Amer) BUN/Creatinine Ratio Glucose POC Glucose 119 H POC Glucose (other) Estimat Average Glucose Hemoglobin A1c POC Lactic Acid Tl Lactate Calcium POC Ioniz Calcium Metr Magnesium Iron TIBC Transferrin Ferritin Total Bilirubin AST ALT Alkaline Phosphatase Lactate Dehydrogenase Troponin I NT-Pro-B Natriuret Pep Total Protein Albumin Globulin Albumin/Globulin Ratio Lipase Vitamin B12 Folate Procalcitonin TSH Urine Color Urine Appearance Urine pH Ur Specific Gilbert Urine Protein Urine Glucose (UA) Urine Ketones Urine Blood Urine Nitrite Urine Bilirubin Urine Urobilinogen Ur Leukocyte Esterase Urine WBC (Auto) Urine RBC (Auto) U Hyaline Cast (Auto) U Epithel Cells (Auto) Urine Bacteria (Auto) Influenza Type A (PCR) Influenza Type B (PCR) Blood Type Antibody Screen Antibody Identification Antibody ID Comment Crossmatch
[2019-06-22] MEDS ORDERED: SODIUM CHLORIDE 0.9% 250 ML IV PRN (17:23)
[2019-06-22] MEDS ORDERED: FUROSEMIDE 20 MG in SYRINGE 0 ML IV ONE (18:03)
[2019-06-22] MEDS ORDERED: DOXYCYCLINE HYCLATE 100 MG CAP PO SCH (21:00)
[2019-06-22] MEDS: DOXYCYCLINE HYCLATE 100 MG in DEXTROSE 5% 100 ML IV SCH (21:15)
[2019-06-23] MEDS: PIPERACILLIN/TAZOBACTAM 3.375 GM in DEXTROSE 5% 100 ML IV SCH ×3 (06:02→21:40)
[2019-06-23] MEDS: INSULIN ASPART 100 UNITS/ML 3 ML PEN SC SCH ×4 (08:12→21:42)
[2019-06-23 09:04] LABS: Hematocrit (blood only) 24.1 % (42-52); Hemoglobin 8.3 g/dL (14.0-18.0); Mean Corpuscular Hemoglobin 32.9 pg (25-34); Mean Corpuscular Hgb Conc 34.4 g/dL (32-36); Mean Corpuscular Volume 95.6 fL (80-100); RDW Coefficient of Variation 18.2 % (11.5-14.5); RDW Standard Deviation 63.2 fL (36.4-46.3); Red Blood Count 2.52 M/uL (4.7-6.1); White Blood Count 5.85 K/uL (4.8-10.8)
[2019-06-23] MEDS: THIAMINE HCL 100 MG TAB PO SCH (09:14)
[2019-06-23] MEDS: ACYCLOVIR 200 MG CAP PO SCH ×3 (09:14→21:31)
[2019-06-23] MEDS: DOXYCYCLINE HYCLATE 100 MG in DEXTROSE 5% 100 ML IV SCH (09:15)
[2019-06-23] MEDS: SERTRALINE HCL 50 MG TABLET PO SCH (09:15)
[2019-06-23] MEDS: METOPROLOL TARTRATE 25 MG TAB PO SCH ×2 (09:15→21:32)
[2019-06-23 09:26] LABS: BUN Creatinine Ratio 13.1 (10-20); Calcium 8.6 mg/dl (8.5-10.1); Creatinine Clr Calc Pharmacy 50.6 ml/min; Est GFR (Non-African American) 69.9; Potassium 3.2 mmol/L (3.5-5.1)
--- NOTE | 2019-06-23 10:10 | Hospitalist Progress Note ---
Date of Service June 23, 2019 Assessment & Plan (1) Severe anemia: 73-year-old male with history of AML in remission, hypertension Presenting with shortness of breath SEVERE ANEMIA, THROMBOCYTOPENIA IN A PATIENT WITH AML IN REMISSION Hemoglobin 5.7 on admission, received 3 units of packed RBCs, hemoglobin 8.3 LDH within normal limits 176 Follows with [facility] Discussed with salt grinder/oncologist Dr. Landa- [facility] [place] - agree with present management POSSIBLE RIGHT SIDED PNEUMONIA Admitted with fever 38.2, also noted to have fever per admission history Blood cultures pending Zosyn and doxycycline ordered empirically Infectious disease consulted DIABETES TYPE 2, NEW DIAGNOSIS A1c 7.3 Pharmacy glycemic control consulted breastfeeding educator consult Will need metformin on discharge HYPERTENSION Stable Continue metoprolol DVT prophylaxis SCDs only in light of thrombocytopenia Patient ambulatory Disposition lives at home with family Will need PT and OT evaluation Subjective ff up for anemia, pneumonia seen resting in bedside chair, comfortable states he feels tired today but otherwise fine denies dyspnea less cough, no sputum production, no fever/chills denies other symptom Review of Systems Review of Systems: All systems reviewed & are unremarkable except as noted in HPI & below Physical Exam Physical Exam: General- oriented x 3, not in distress, speaks in sentences with no effort or accessory muscle use Eyes- anicteric Neck- no JVD Lungs- mild rales right base no wheezing Heart- normal rate, regular rhythm; no murmurs Abdomen- normal bowel sounds, nondistended, soft, nontender Extremities- no pretibial edema, no calf tenderness Neuro- alert, oriented x 3; no gross focal neurologic deficits Skin- warm & dry Results & Data Vital Signs (Past 12 Hours) Vital Signs Temp Pulse Pulse Resp BP Pulse Ox 06/23/19 03:45 36.9 C 59 L 18 152/67 H 95 06/23/19 00:00 60
[2019-06-23 10:18] LABS: Mean Platelet Volume 8.9 fL (7.4-10.4); Platelet Count 31 K/uL (130-400)
[2019-06-23 10:20] LABS: ALC (manual) 2.54 K/uL (1.2-3.4); ANC (manual) 1.71 K/uL (1.4-6.5); Basophils # (manual) 0.05 K/uL (0-0.2); Basophils % (manual) 0.9 %; Blast # (manual) 0.31 K/uL (0-0); Blast Cells % (manual) 5.3 %; Eosinophils # (manual) 0.05 K/uL (0-0.5); Eosinophils % (manual) 0.9 %; Lymphocytes # (manual) 2.54 K/uL (1.2-3.4); Lymphocytes % (manual) 43.4 %; Metamyelocytes # (manual) 0.11 K/uL (0-0); Metamyelocytes % (manual) 1.8 %; Monocytes # (manual) 0.88 K/uL (0.11-0.59); Myelocytes % (manual) 3.5 %; Neutrophils # (manual) 1.71 K/uL (1.4-6.5); Neutrophils % (manual) 29.2 %; RBC Morphology Unremarkable
[2019-06-23] MEDS: POTASSIUM CHLORIDE 20 MEQ TABCR PO SCH ×2 (11:11→21:32)
[2019-06-23] MEDS: DOXYCYCLINE HYCLATE 100 MG CAP PO SCH (21:31)
[2019-06-24] MEDS: PIPERACILLIN/TAZOBACTAM 3.375 GM in DEXTROSE 5% 100 ML IV SCH ×2 (05:33→12:59)
[2019-06-24 06:49] LABS: Hematocrit (blood only) 23.9 % (42-52); Hemoglobin 8.2 g/dL (14.0-18.0); Mean Corpuscular Hemoglobin 33.5 pg (25-34); Mean Corpuscular Hgb Conc 34.3 g/dL (32-36); Mean Corpuscular Volume 97.6 fL (80-100); RDW Coefficient of Variation 17.9 % (11.5-14.5); RDW Standard Deviation 63.4 fL (36.4-46.3); Red Blood Count 2.45 M/uL (4.7-6.1); White Blood Count 7.11 K/uL (4.8-10.8)
[2019-06-24 06:56] LABS: Mean Platelet Volume 9.5 fL (7.4-10.4); Platelet Count 33 K/uL (130-400)
[2019-06-24 07:06] LABS: BUN Creatinine Ratio 13.8 (10-20); Calcium 9.1 mg/dl (8.5-10.1); Creatinine Clr Calc Pharmacy 50.1 ml/min; Est GFR (African American) 80.1; Est GFR (Non-African American) 69.1; Potassium 3.6 mmol/L (3.5-5.1)
[2019-06-24 08:19] LABS: ALC (manual) 2.18 K/uL (1.2-3.4); ANC (manual) 1.83 K/uL (1.4-6.5); Blast # (manual) 1.32 K/uL (0-0); Blast Cells % (manual) 18.5 %; Eosinophils # (manual) 0.06 K/uL (0-0.5); Eosinophils % (manual) 0.8 %; Lymphocytes # (manual) 2.18 K/uL (1.2-3.4); Lymphocytes % (manual) 30.7 %; Monocytes # (manual) 1.55 K/uL (0.11-0.59); Monocytes % (manual) 21.8 %; Myelocytes # (manual) 0.17 K/uL (0-0); Myelocytes % (manual) 2.4 %; Neutrophils # (manual) 1.83 K/uL (1.4-6.5); Neutrophils % (manual) 25.8 %
[2019-06-24] MEDS: METOPROLOL TARTRATE 25 MG TAB PO SCH ×2 (08:45→21:35)
[2019-06-24] MEDS: DOXYCYCLINE HYCLATE 100 MG CAP PO SCH ×2 (08:45→21:36)
[2019-06-24] MEDS: SERTRALINE HCL 50 MG TABLET PO SCH (08:46)
[2019-06-24] MEDS: ACYCLOVIR 200 MG CAP PO SCH ×3 (08:46→21:35)
[2019-06-24] MEDS: POTASSIUM CHLORIDE 20 MEQ TABCR PO SCH ×2 (08:46→21:59)
[2019-06-24] MEDS: THIAMINE HCL 100 MG TAB PO SCH (08:46)
[2019-06-24] MEDS: INSULIN ASPART 100 UNITS/ML 3 ML PEN SC SCH ×4 (08:48→21:37)
--- NOTE | 2019-06-24 14:13 | Pharmacy Report ---
Pharmacy Glycemic Sign Off Nt - Date of Service June 24, 2019 - Assessment & Plan ASSESSMENT: * Pharmacy was consulted by Dr Sewell on 06/22/18 for glycemic control and to write orders per [facility] inpatient glycemic control protocol. * Patient has been requiring 5-8 units of insulin per day for adequate glycemic control * BSGs ranging 81 - 129 mg/dl * Regimen has only required minor adjustments to carb coverage over the past 48hrs to achieve this level of control * Pt has required no basal insulin * Do not anticipate further changes in patient status that would quickly deteriorate glycemic control (i.e. patient to be NPO for upcoming procedure, steroids tapering, starting tube feedings, etc). PLAN FOR INPATIENT GLYCEMIC CONTROL: No changes needed to current regimen. * Continue NovoLog per scale ACHS/Q6hrs while NPO * Goal range = 110- 140 mg/dl * CF = 25 mg/dl/unit * CR = 1 unit for ever 25 g CHO consumed * Pharmacy is signing off of glycemic consult and will no longer be making adjustments to inpatient regimen. Please feel free to re-consult if needed. Thank you. DISCHARGE RECOMMENDATIONS: * A1c 7.3 % on 06/21/19. Patient with chronic anemia receiving PRBC so A1c may not be reliable. * Goal A1c is < 7%. Recommend addition of metformin. * B12 supplementation may be necessary with prison metformin use * FDA has revised the label for metformin to reflect its safety in patients with eGFR 30 mL/min or above * Recommend starting: Metformin XR 500mg PO daily with evening meal. Typically the XR formulation of metformin is better tolerated than the immediate release formulation. Continue to titrate metformin dosing upwards as recommended. Dosage increases should be made in increments of 500 mg weekly, up to 2,000 mg/day PO, given in divided doses. Doses above 2000 mg/day may be better tolerated if divided and given 3 times per day with meals. Max: 2,550 mg/day PO, in divided doses
--- NOTE | 2019-06-24 15:06 | Hospitalist Progress Note ---
Date of Service June 24, 2019 Assessment & Plan (1) Severe anemia: 73-year-old male with history of AML in remission, hypertension Presenting with shortness of breath SEVERE ANEMIA, THROMBOCYTOPENIA IN A PATIENT WITH AML IN REMISSION Hemoglobin 5.7 on admission, received 3 units of packed RBCs, hemoglobin 8.2 LDH within normal limits 176 Follows with [facility] Discussed with clothes drier assembler/oncologist Dr. Landa- [facility] [place] - agree with present management POSSIBLE RIGHT SIDED PNEUMONIA Admitted with fever 38.2, also noted to have fever per admission history Blood cultures negative Zosyn and doxycycline Day 3, afebrile, symptoms improved Infectious disease consulted transition to PO Levaquin tomorrow x 4 days total DIABETES TYPE 2, NEW DIAGNOSIS A1c 7.3 Pharmacy glycemic control consulted elementary educator consult Will need metformin on discharge HYPERTENSION Stable Continue metoprolol DVT prophylaxis SCDs only in light of thrombocytopenia Patient ambulatory Disposition lives at home with family anticipate d/c home tomorrow Subjective ff up for anemia, pneumonia seen resting in bed, comfortable in good spirits has occasional cough, dry, no fever/chills no dyspnea on ambulation no bleeding no other symptom Review of Systems Review of Systems: All systems reviewed & are unremarkable except as noted in HPI & below Physical Exam Physical Exam: General- oriented x 3, not in distress, speaks in sentences with no effort or accessory muscle use Eyes- anicteric Neck- no JVD Lungs- (+) rales in the righ base no wheezing Heart- normal rate, regular rhythm; no murmurs Abdomen- normal bowel sounds, nondistended, soft, nontender Extremities- no pretibial edema, no calf tenderness Neuro- alert, oriented x 3; no gross focal neurologic deficits Skin- warm & dry Results & Data Vital Signs (Past 12 Hours) Vital Signs Temp Pulse Pulse Resp BP Pulse Ox 06/24/19 14:07 62 06/24/19 11:44 37.1 C 58 L 20 130/72 97 06/24/19 07:18 37.1 C 62 20 155/69 H 94 06/24/19 04:00 37.8 C H 65 18 161/72 H 96
[2019-06-25 06:16] LABS: Mean Corpuscular Hgb Conc 33.7 g/dL (32-36)
[2019-06-25 06:45] LABS: BUN Creatinine Ratio 15.4 (10-20); Calcium 9.6 mg/dl (8.5-10.1); Creatinine Clr Calc Pharmacy 57.3 ml/min; Est GFR (African American) 96.9; Est GFR (Non-African American) 83.6; Potassium 4.3 mmol/L (3.5-5.1)
[2019-06-25 07:40] LABS: Hematocrit (blood only) 26.4 % (42-52); Hemoglobin 8.9 g/dL (14.0-18.0); Mean Corpuscular Hemoglobin 32.8 pg (25-34); Mean Corpuscular Volume 97.4 fL (80-100); Mean Platelet Volume 8.9 fL (7.4-10.4); Platelet Count 35 K/uL (130-400); RDW Coefficient of Variation 17.4 % (11.5-14.5); RDW Standard Deviation 61.5 fL (36.4-46.3); Red Blood Count 2.71 M/uL (4.7-6.1); White Blood Count 10.12 K/uL (4.8-10.8)
[2019-06-25 07:41] LABS: ALC (manual) 1.89 K/uL (1.2-3.4); ANC (manual) 3.21 K/uL (1.4-6.5); Blast Cells % (manual) 23.7 %; Eosinophils # (manual) 0.22 K/uL (0-0.5); Eosinophils % (manual) 2.2 %; Lymphocytes # (manual) 1.89 K/uL (1.2-3.4); Lymphocytes % (manual) 18.7 %; Monocytes # (manual) 1.89 K/uL (0.11-0.59); Monocytes % (manual) 18.7 %; Myelocytes # (manual) 0.51 K/uL (0-0); Neutrophils # (manual) 3.21 K/uL (1.4-6.5); Neutrophils % (manual) 31.7 %
[2019-06-25] MEDS: POTASSIUM CHLORIDE 20 MEQ TABCR PO SCH (08:06)
[2019-06-25] MEDS: THIAMINE HCL 100 MG TAB PO SCH (08:07)
[2019-06-25] MEDS: SERTRALINE HCL 50 MG TABLET PO SCH (08:07)
[2019-06-25] MEDS: ACYCLOVIR 200 MG CAP PO SCH ×2 (08:07→13:45)
[2019-06-25] MEDS: INSULIN ASPART 100 UNITS/ML 3 ML PEN SC SCH ×2 (08:08→12:33)
[2019-06-25] MEDS: METOPROLOL TARTRATE 25 MG TAB PO SCH (08:38)
[2019-06-25] MEDS ORDERED: levoFLOXacin 750 MG TAB PO SCH (11:00)
[2019-06-25 11:28] VITALS: TEMP 98.2
[2019-06-25 11:44] VITALS: PULSE 59; O2SAT 97
[2019-06-25 13:38] VITALS: BP 144/78
--- NOTE | 2019-06-25 14:42 | Hospitalist Progress Note ---
Date of Service June 25, 2019 Assessment & Plan (1) Severe anemia: 73-year-old male with history of AML in remission, hypertension Presenting with shortness of breath SEVERE ANEMIA, THROMBOCYTOPENIA IN A PATIENT WITH AML IN REMISSION Hemoglobin 5.7 on admission, received 3 units of packed RBCs, hemoglobin 8.9 LDH within normal limits 176 Follows with [facility] Dr. Landa Discussed case with asphalt paving superintendent/oncologist Dr. Landa- [facility] [place] -informed patient has increasing blast cells on CBC He agrees with present management and discharge plan Dr. Landa will be calling the patient soon for an appointment this week Repeat CBC on follow-up with primary care physician this week RIGHT SIDED PNEUMONIA Admitted with fever 38.2, also noted to have fever per admission history Blood cultures negative Has received 3 days of Zosyn and doxycycline afebrile, symptoms improved Infectious disease consulted transition to PO Levaquin x 4 days total DIABETES TYPE 2, NEW DIAGNOSIS A1c 7.3 Pharmacy glycemic control consulted, placed on insulin sliding scale nurse educator consulted Will discharge on metformin 500 mg p.o. daily And monitor as outpatient with primary care physician HYPERTENSION Stable Continue metoprolol Disposition Discharge to home Follow-up with primary care physician as outlined in discharge instructions Follow-up with asphalt paving superintendent in [facility] in 1 week Subjective ff up for pneumonia, anemia Seen resting in bed, comfortable, in good spirits States that he feels much better overall Denies cough, sputum, fever chills Denies shortness of breath, bleeding, weakness States he is ready and would like to be discharged today Review of Systems Review of Systems: All systems reviewed & are unremarkable except as noted in HPI & below Physical Exam Physical Exam: General- oriented x 3, not in distress, speaks in sentences with no effort or accessory muscle use Eyes- anicteric Neck- no JVD Lungs- clear breath sounds, no crackles or wheezing bilaterally Heart- normal rate, regular rhythm; no murmurs Abdomen- normal bowel sounds, nondistended, soft, no tenderness Extremities- no pretibial edema, no calf tenderness Neuro- alert, oriented x 3; no gross focal neurologic deficits Skin- warm & dry Results & Data Vital Signs (Past 12 Hours) Vital Signs Temp Pulse Pulse Pulse Resp BP BP 06/25/19 13:35 36.8 C 59 L 59 L 16 143/69 H 144/78 H 06/25/19 11:42 59 L 143/69 H 06/25/19 11:27 36.8 C 58 L 16 142/41 H 06/25/19 07:44 37.1 C 66 16 160/70 H 06/25/19 07:26 64 06/25/19 04:00 36.8 C 71 20 167/73 H Pulse Ox 06/25/19 13:35 97 06/25/19 11:42 97 06/25/19 11:27 98 06/25/19 07:44 97 06/25/19 07:26 06/25/19 04:00 95 Laboratory Results Laboratory Results - last 24 hr 06/24/19 06/24/19 06/25/19 16:01 20:14 05:36 WBC 10.12 RBC 2.71 L Hgb 8.9 L Hct 26.4 L MCV 97.4 MCH 32.8 MCHC 33.7 RDW Std Deviation 61.5 H RDW Coeff of Kamar 17.4 H Plt Count 35 L MPV 8.9 Neutrophils % (Manual) 31.7 Lymphocytes % (Manual) 18.7 Monocytes % (Manual) 18.7 Eosinophils % (Manual) 2.2 Myelocytes % (Man) 5.0 Blast Cells % (Manual) 23.7 Neutrophils # (Manual) 3.21 Total Absolute Neuts 3.21 Lymphocytes # (Manual) 1.89 Total Abs Lymphocytes 1.89 Monocytes # (Manual) 1.89 H Eosinophils # (Manual) 0.22 Myelocytes # (Manual) 0.51 H Blast Cells # (Man) 2.40 H Sodium Potassium Chloride Carbon Dioxide Anion Gap BUN Creatinine Est Cr Clr Drug Dosing Est GFR ( Amer) Est GFR (Non-Af Amer) BUN/Creatinine Ratio Glucose POC Glucose 110 H 120 H Calcium 06/25/19 06/25/19 06/25/19 05:36 07:35 11:39 WBC RBC Hgb Hct MCV MCH MCHC RDW Std Deviation RDW Coeff of Kamar Plt Count MPV Neutrophils % (Manual) Lymphocytes % (Manual) Monocytes % (Manual) Eosinophils % (Manual) Myelocytes % (Man) Blast Cells % (Manual) Neutrophils # (Manual) Total Absolute Neuts Lymphocytes # (Manual) Total Abs Lymphocytes Monocytes # (Manual) Eosinophils # (Manual) Myelocytes # (Manual) Blast Cells # (Man) Sodium 137 Potassium 4.3 D Chloride 105 Carbon Dioxide 25 Anion Gap 7.0 BUN 14 Creatinine 0.89 Est Cr Clr Drug Dosing 57.3 Est GFR ( Amer) 96.9 Est GFR (Non-Af Amer) 83.6 BUN/Creatinine Ratio 15.4 Glucose 99 POC Glucose 106 H 103 H Calcium 9.6
--- NOTE | 2019-06-25 14:43 | Discharge Summary ---
Date of Service June 25, 2019 Admission HPI Per Admitting Provider History obtained from patient and records. Medical history significant for HTN, AML sp chemotherapy, chronic anemia (baseline hemoglobin of 8), history hemolytic anemia as per records, anxiety/mood disorder, past tobacco abuse. Recent [place] [facility] [place] [facility] [place] for neutropenic fever secondary to aspiration pneumonia. PEG tube placed to facilitate feedings for failure to thrive. Patient transitioned to senior living facility then back to home. Increasing shortness of breath noted over the last few days without fluid retention. Dry cough symptoms. No chest pain. Fever chills at home. No known sick contacts. Nausea, emesis symptoms. No abdominal pain, no diarrhea symptoms. Patient brought by son to the emergency room. 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 Admission Exam Per Admitting Provider GENERAL: Slightly uncomfortable, pleasant, covered in blankets, no respiratory distress SKIN: Pallor , warm HEENT: Pale palpebral conjunctivae, no ptosis, dry buccal mucosa NECK : Supple, no tenderness CHEST : Decreased breath sounds right , no tenderness HEART : RRR, no obvious murmurs ABDOMEN: Soft, PEG tube port in place, nontender EXTREMITIES : No LE swelling/tenderness, no other conspicuous deformities noted NEUROLOGIC : Coherent, no facial asymmetry, no other gross focality Principal Diagnosis ANEMIA, PNEUMONIA Discharge Exam General- oriented x 3, not in distress, speaks in sentences with no effort or accessory muscle use Eyes- anicteric Neck- no JVD Lungs- (+) rales at the right base no wheezing Heart- normal rate, regular rhythm; no murmurs Abdomen- normal bowel sounds, nondistended, soft, nontender Extremities- no pretibial edema, no calf tenderness Neuro- alert, oriented x 3; no gross focal neurologic deficits Skin- warm & dry Discharge Data Allergies Allergy/AdvReac Type Severity Reaction Status Date / Time Cephalosporins Allergy Unknown Unknown Verified 06/21/19 19:41 tetanus toxoid, adsorbed Allergy Unknown Unknown Verified 06/21/19 19:41 Consultations 06/21/19 23:29 ED Decision to Admit Stat 06/22/19 08:00 Consult Health Information Management Routine 06/22/19 08:18 Consult Infectious Diseases Routine Ordered Studies 06/22/19 00:59 CT angio chest PE protocol Urgent CT angio chest PE protocol CLINICAL HISTORY: 73 years-old Male presenting with shortness of breath, weakness, right pleural effusion, clinical concern for pulmonary bolus. TECHNIQUE: Multidetector CT angiography of the chest was performed after administration of intravenous contrast. 3-D volumetric and/or maximum intensity projection (MIP) images were subsequently reconstructed for review. IV contrast: 116 mL of Optiray 320. One or more dose lowering techniques were used consistent with the principles of ALARA (as low as reasonably achievable), including automatic exposure control, mA or kV adjustment to individual patient size, and/or use of iterative reconstruction. COMPARISON: Chest x-ray performed the previous day. CT DOSE (mGy.cm): The estimated cumulative dose is 372.00 mGy.cm. FINDINGS: Cup Trimming Machine Operator topogram: Right internal jugular Mediport terminates in the SVC. Pulmonary vasculature: The study is adequate for assessment of the pulmonary vascular tree. No filling defect within the pulmonary arteries to suggest embolus. Main pulmonary artery is not enlarged. No flattening of the interventricular septum. No intracardiac filling defect. No reflux of contrast into the hepatic veins. Remaining chest: Soft tissues: Normal thyroid and thoracic inlet. Gynecomastia. No axillary, supraclavicular, mediastinal, or hilar lymphadenopathy. Normal aorta. Normal heart size. Coronary artery calcification. No pericardial or pleural effusion. Upper abdomen normal. Lungs and airways: No pneumothorax. Central airways patent. Pulmonary arteries mildly enlarged relative to adjacent bronchi. No interlobular septal thickening. Minimal dependent changes likely atelectasis. Mild patchy peribronchovascular groundglass opacities in the right lung with an upper lobe predominance. Mild mosaic attenuation is also noted in the left lung. Solid fissural 3 mm nodule in the superior segment of the left lower lobe (series 4 image 182). Musculoskeletal: Degenerative changes of the spine. Flowing anterior osteophytosis suggest diffuse idiopathic skeletal hyperostosis. IMPRESSION: 1. No evidence of pulmonary embolus. 2. Mild patchy peribronchovascular groundglass infiltrates in the right lung with an upper lobe predominance could relate to small airways disease versus developing bronchopneumonia or other mild pneumonitis. 3. Solid 3 mm left lower lobe nodule. Follow-up per Fleischner Society 2017 recommendations below. Summary of Fleischner Society 2017 Recommendations (H Memo et al. Guidelines for management of incidental pulmonary nodules detected on CT images: From the Fleischner Society 2017. Radiology 2017; 284: 228-243.) SOLID NODULES Single nodule; size < 6 mm * Low risk patients: No routine follow-up * High risk patients: Optional CT at 12 months Single nodule; size 6-8 mm * Low risk patients: CT at 6-12 months, then consider CT at 18-24 months * High risk patients: CT at 6-12 months, then at 18-24 months Single nodule; size > 8 mm * Either low or high risk patients: Considered CT at 3 months, PET/CT, or tissue sampling Multiple nodules; size < 6 mm * Low risk patients: No routine follow up * High risk patients: Optional CT at 12 months Multiple nodules; size 6-8 mm * Low risk patients: CT at 3-6 months, then consider CT at 18-24 months * High risk patients: CT at 3-6 months, then at 18-24 months Multiple nodules; size > 8 mm * Low risk patients: CT at 3-6 months, then consider at 18-24 months * High risk patients: CT at 3-6 months, then at 18-24 months SUBSOLID NODULES Single ground-glass nodule * Nodule size < 6 mm: No routine follow-up * Nodule size > or = 6 mm: CT at 6-12 months to confirm persistence, then CT every 2 years until 5 years Single part-solid nodule * Nodule size < 6 mm: No routine follow-up * Nodules size > or = 6 mm: CT at 3-6 months to confirm persistence. If unchanged and solid component remains < 6 mm, annual CT should be performed for 5 years Multiple nodules * Nodule size < 6 mm: CT at 3-6 months. If stable, consider CT at 2 and 4 years. * Nodules size > or = 6 mm: CT at 3-6 months. Subsequent management based on the most suspicious nodule(s) NOTE: 1) These guidelines apply to incidental nodules. These guidelines do NOT apply to patients younger than 35 years, immunocompromised patients, or patients with cancer. 2) Risk categories: * Low risk patients: Minimal or absent history of smoking and/or other known risk factors * High risk patients: History of smoking, exposure to other carcinogens, emphysema, fibrosis, upper lobe location, family history of lung cancer, etc. 3) If a nodule up to 8 mm is partly solid or is ground glass, further follow-up is required after 24 months to exclude possible slow growing adenocarcinoma. Hospital Course (1) Severe anemia: 73-year-old male with history of AML in remission, hypertension Presenting with shortness of breath SEVERE ANEMIA, THROMBOCYTOPENIA IN A PATIENT WITH AML IN REMISSION Hemoglobin 5.7 on admission, received 3 units of packed RBCs, hemoglobin 8.9 LDH within normal limits 176 Follows with [facility] Dr. Landa Discussed case with brain surgeon/oncologist Dr. Landa- [facility] [place] [facility] [place] informed patient has increasing blast cells on CBC: 0.5 to 2.4 He agrees with present management and discharge plan Dr. Landa will be calling the patient soon for an appointment this week Repeat CBC with differential on follow-up with primary care physician this week RIGHT SIDED PNEUMONIA Admitted with fever 38.2, also noted to have fever per admission history Blood cultures negative Has received 3 days of Zosyn and doxycycline afebrile, symptoms improved Infectious disease consulted transition to PO Levaquin x [address]G [address] chest: Solid 3 mm left lower lobe nodule. (Full report on procedure section above) work up and ff up as outpatient DIABETES TYPE 2, NEW DIAGNOSIS A1c 7.3 Pharmacy glycemic control consulted, placed on insulin sliding scale critical care educator consulted discharge on metformin 500 mg p.o. daily Ff up And monitor as outpatient with primary care physician HYPERTENSION Stable Continue metoprolol Disposition Discharge to home Follow-up with primary care physician as outlined in discharge instructions Follow-up with brain surgeon in [facility] in 1 week Total Time Total Time Spent Total Time Spent (In Minutes): 60 minutes Discharge Plan Discharge Items Patient Disposition: Home - Self-Care Reason For Visit: SYMPTOMATIC ANEMIA Discharge Diagnosis: ANEMIA, PNEUMONIA Condition on Discharge: Good Activity: Resume your previous activity Activity Comment: NO HEAVY EXERTION UNTIL RE-EVALUATED BY PRIMARY CARE PHYSICIAN Lifting: Wait until after follow-up appointment Exercise/Sports: Wait until after follow-up appointment Driving/Machine Use: NO DRIVING UNTIL RE-EVALUATED BY PRIMARY CARE PHYSICIAN Non-emergency contact: Primary Care Provider and Oncologist Call non-emergency contact if: you have any medication questions, your symptoms worsen and you have a fever Diet: Heart Healthy Addtl Attending Provider Instructions: FOLLOW UP WITH PRIMARY CARE PHYSICIAN DR. CHIANG ON SATURDAY JUNE 29, 2019 AT 11:[address]AM. DR. LANDA WILL BE CALLING YOU SOON FOR AN APPOINTMENT WITH HIM THIS WEEK. CALL PRIMARY CARE PHYSICIAN OR RETURN TO THE ER IMMEDIATELY IF WITH WORSENING OF SYMPTOMS, WEAKNESS, SHORTNESS OF BREATH, FEVER/CHILLS, COUGH, DIARRHEA, BLEEDING. NEW MEDICATION: LEVAQUIN 750MG PO DAILY X 3 DAYS (ANTIBIOTIC FOR PNEUMONIA) TAKE A PROBIOTIC DAILY X AT LEAST 2 WEEKS. DRINK PLENTY OF FLUIDS EVERY DAY. Pending Studies at Discharge: No Stand-Alone Forms: My [facility] Medications and DC Order Prescriptions: New levofloxacin 750 mg Tablet 750 mg PO DAILY@1100 3 Days Qty: 3 RF: 0 metformin 500 mg tablet 500 mg PO DAILY 30 Days Qty: 30 RF: 2 Continued acetaminophen [Tylenol Extra Strength] 500 mg Tablet 1,000 mg PO DIRECTED PRN (Reason: Pain) RF: 0 acyclovir 200 mg capsule 200 mg PO TID RF: 0 sertraline 50 mg tablet 50 mg PO QAM RF: 0 metoprolol tartrate 25 mg tablet 12.5 mg PO BID RF: 0 thiamine mononitrate (vit B1) 100 mg tablet 100 mg PO QAM RF: 0 Discharge Orders: Discharge Order (Routine); Ordered 06/25/19 Ordered By: Chuy Medina/Other Patient Handouts: Diabetes Security Flex Officer Complications, Diabetes Resources, Diabetes Healthy Meals, Diabetes Carbs, Diabetes Exercise Benefits, Diabetes Exercise Get Started, Diabetes Activity Tips, Diabetes Living Life, Diabetes Manage A1C Test Admission Data Admit Date/Time: 06/21/19 20:54 Attending Provider: Chuy Sewell Admit Provider: Gonzalez Lockhart Primary Care Provider: Sandro Escobar Other Providers: Gonzalez Lockhart ; Petty Montilla Other Interventions: Discharge Summary Assessment (RN) Last Done: 06/25/19 13:35
== END 2019-06-25 15:56 | disposition home or self-care (01) | DRG 834 ==
LOC: ED 18:10 → 2W 20:54

== ENCOUNTER 2019-07-14 19:27 | Inpatient (IN) ==
--- NOTE | 2019-07-14 20:06 | XRay Report ---
XR chest 1V portable CLINICAL HISTORY: SOB dyspnea COMPARISON STUDY: 06/21/2019 FINDINGS: Slight chronic blunting right lateral costophrenic angle. Lungs otherwise appear clear. Meliton tral catheter in superior vena cava. IMPRESSION: No acute process. The above report was generated using voice recognition software. It may contain grammatical, syntax or spelling errors. Electronically signed by: Jose Armando Arreola M.D. 07/14/2019 8:05 PM
[2019-07-14] MEDS ORDERED: SODIUM CHLORIDE 0.9% 1000ML 1,000 ML IV STA (20:10)
[2019-07-14] MEDS ORDERED: SODIUM CHLORIDE 0.9% 1000ML 500 ML IV ONE (20:10)
[2019-07-14 20:56] LABS: Mean Corpuscular Hgb Conc 34.2 g/dL (32-36)
[2019-07-14 20:59] LABS: INR 1.2 (0.9-1.1); Partial Thromboplastin Ratio 1.5; Partial Thromboplastin Time 40.2 Seconds (21.0-31.0); Prothrombin Time 12.4 Seconds (9.0-12.0)
[2019-07-14] MEDS ORDERED: SODIUM CHLORIDE 0.9% 250 ML IV PRN (21:01)
[2019-07-14 21:03] LABS: Alanine Aminotransferase 24 U/L (12-78); Albumin Level 2.8 gm/dl (3.4-5.0); Aspartate Aminotransferase 32 U/L (15-37); BUN Creatinine Ratio 24.1 (10-20); Blood Urea Nitrogen 26 mg/dl (7-18); Calcium 8.8 mg/dl (8.5-10.1); Carbon Dioxide 27 mmol/L (21-32); Chloride 102 mmol/L (98-107); Est GFR (African American) 78.3; Est GFR (Non-African American) 67.5; Glucose 111 mg/dl (70-99); Potassium 4.2 mmol/L (3.5-5.1); Sodium 135 mmol/L (136-145)
[2019-07-14 21:08] LABS: Albumin Globulin Ratio 0.6 (0.9-2); Alkaline Phosphatase 85 U/L (45-117); Bilirubin,Total 0.6 mg/dl (0.2-1); NT Pro B Type Natriuretic Pept 703 pg/ml (0-900); Total Protein 7.8 gm/dl (6.4-8.2); Troponin I < 0.015 ng/ml (0-0.045)
[2019-07-14 21:30] LABS: ALC (manual) 8.34 K/uL (1.2-3.4); ANC (manual) 2.54 K/uL (1.4-6.5); Blast # (manual) 29.75 K/uL (0-0); Blast Cells % (manual) 65.6 %; Lymphocytes # (manual) 8.34 K/uL (1.2-3.4); Lymphocytes % (manual) 18.4 %; Monocytes # (manual) 4.72 K/uL (0.11-0.59); Monocytes % (manual) 10.4 %; Neutrophils # (manual) 2.54 K/uL (1.4-6.5); Neutrophils % (manual) 5.6 %; RBC Morphology Unremarkable
[2019-07-14 21:33] LABS: Hematocrit (blood only) 16.1 % (42-52); Hemoglobin 5.5 g/dL (14.0-18.0); Mean Corpuscular Hemoglobin 32.4 pg (25-34); Mean Corpuscular Volume 94.7 fL (80-100); Mean Platelet Volume 8.1 fL (7.4-10.4); Platelet Count 12 K/uL (130-400); RDW Coefficient of Variation 17.6 % (11.5-14.5); RDW Standard Deviation 60.3 fL (36.4-46.3); White Blood Count 45.35 K/uL (4.8-10.8)
--- NOTE | 2019-07-14 23:22 | Emergency Department Note ---
Entered by Royer Oates acting as a scribe for ED Provider Note CHIEF COMPLAINT: Shortness of breath HISTORY OF PRESENT ILLNESS: The patient is a 73 year old male who presents to the Emergency Room with complaints of shortness of breath for the last two days. The patient notes that he has had low energy and felt tired. The patient notes that he was unable to walk by himself. The patient notes that he was seen by a [facility]bbie doctor for Leukemia, and is now in remission. The patient notes that he has a history of pneumonia this past summer, and had another episode two months ago. The patient also states that he is anemic. The patient states that he has been eating and drinking normally. The patient states that he has a peg tube. The patient notes that he is not taking any blood thinners. The patient states that his PCP is [facility] in [place]. Pt denies LOC, headache, fevers, chills, diaphoresis, visual changes, neck pain, chest pain, nausea, vomiting, abdominal pain, back pain, melena, hematochezia, urinary symptoms, numbness, lymphadenopathy, rash, or other complaints. REVIEW OF SYSTEMS: See HPI for pertinent positives and negatives. A total of ten systems were rev iewed and were otherwise negative. PMHx/PSHx: Leukemia, pneumonia SOCIAL HISTORY: Patient lives at home. PHYSICAL EXAM: GENERAL: Awake, alert, well-appearing, frail apprearing in no distress. HENT: Normocephalic, atraumatic. Oropharynx unremarkable. EYES: PERRL. Pale conjunctiva. Sclera non-icteric. NECK: Inspection normal. Non-tender. Supple. No nuchal rigidity. FROM. No masses. RESPIRATORY: Clear to auscultation. No wheezes. No rales. Normal respiratory effort. CARDIAC: Normal rate. Normal rhythm. No murmurs. No rubs. Extremities warm and well perfused. Pulses equal. No JVD. [place] in right chest. GI: Soft, non-distended. No tenderness to palpation. No rebound or guarding. No masses. RECTAL: Deferred. MUSCULOSKELETAL: Atraumatic. Chest examination reveals no tenderness, and right metaport in chest. The back is symmetrical on inspection without obvious abnormality. There is no CVA tenderness to palpation. No joint edema. LOWER EXTREMITIES: Calves are equal size bilaterally and non-tender. No edema. No discoloration. NEURO: Normal sensorium. No sensory or motor deficits noted. SKIN: No rash or jaundice noted. EMERGENCY DEPARTMENT COURSE: 1999: Past medical records reviewed. The patient was evaluated in room A10, and a complete history and physical examination were performed. 2100: The patient consented for admission. 2108: Discussed the patient's case with Dr. Scott, Hospitalist [facility] The patient will be admitted for further management. MEDICAL DECISION MAKING: A10 Prior records/ancillary studies reviewed. The patient has a history of AML and has had anemia with his baseline hemoglobin in the mid to high 8 range. Triage Nursing notes reviewed and agree them. Additional history obtained from the family. The patient's history was concerning for shortness of breath. Differential diagnosis: Etiologies such as symptomatic anemia, comp occasion of AML, pneumonia, COPD, reactive airway disease, CHF, cardiac ischemia, pulmonary embolism, pneumothorax, musculoskeletal, infections, gastrointestinal, as well as others were entertained. Physical examination: As above. Pale appearing. No distress. ER treatment provided: Pulmonal oxygen Patient was hydrated with normal saline Consented for packed red blood cell transfusion and 1 unit ordered. On reassessment the patient stable. Diagnostic interpretation by me: The electrocardiogram was negative for pathologic change. The labs revealed a significant leukocytosis with anemia and thrombocytopenia. The patient also appears to have a developing blast crisis. Troponin negative. Imaging studies: Chest x-ray no acute process. Consultation: A consultation was placed with the [facility] hospitalist. The case was discussed and diagnostics were reviewed. The patient was evaluated in the ER for further treatment. Due to the development of the blast crisis Dr. Scott and I did discuss this issue. He did consult with his oncology team at [facility]. They recommended transfusion of 2 units of packed red blood cells and then consideration for transfer to their facility tomorrow. CRITICAL CARE: I have personally spent greater than 30 minutes of critical care time in the direct management of this patient. This includes bedside care, interpretation of diagnostic studies, and testing, discussion with consultants, patient, and family members, and other required patient management activities. This 30 minutes is in excess of all separately billable procedures. IMPRESSION: Severe anemia, shortness of breath, leukocytosis PLAN: Admitted The scribe's documentation has been prepared under my direction and personally reviewed by me in its entirety. I confirm that the note above accurately reflects all work, treatment, procedures, and medical decision making performed by me. Impression & Plan Severe anemia, Thrombocytopenia, AML (acute myeloid leukemia), Weakness Past Med/Surg History Medical History AML (acute myeloid leukemia) Cancer H/O hepatic failure Hernia Myelodysplastic syndrome Surgical History H/O hernia repair Family History Other Family history non-contributory Social History Preferred Language: Azerbaijani Communication Ability: Effective Security Controls Assessor Required: No Beliefs That Will Affect Care: None Current Living Situation: Alone Feels Safe at Home: Yes Smoking Status: Former smoker Second Hand Exposure: No ; Hx Alcohol Use: No Hx Substance Use: No Results & Data Vital Signs Vital Signs - 24 hr 07/14/19 19:31 07/14/19 19:36 07/14/19 19:41 Temperature 37.0 C Temperature Source Oral Sepsis Recent Fever Within 48 Hours No Sepsis New/Unexplained Change in Mental Status No Sepsis Action Taken by Nursing No Action Required Pulse Rate 85 Pulse Rate [Left] 84 Pulse Rate from SpO2 Sensor Pulse Rhythm Pulse Strength Respiratory Rate 24 20 Respiratory Effort / Characteristics Spontaneous Respiratory Depth Normal Blood Pressure 106/62 Blood Pressure [Left Arm] 111/60 Blood Pressure Mean 76 Blood Pressure Mean [Left Arm] 77 Blood Pressure Position Blood Pressure Position [Left Arm] Lying Pulse Oximetry 99 93 Oxygen Delivery Method Room Air Room Air Room Air Oxygen Flow Rate 07/14/19 19:42 07/14/19 19:48 07/14/19 20:00 Temperature Temperature Source Sepsis Recent Fever Within 48 Hours Sepsis New/Unexplained Change in Mental Status Sepsis Action Taken by Nursing Pulse Rate 83 83 88 Pulse Rate [Left] Pulse Rate from SpO2 Sensor 82 82 89 Pulse Rhythm Pulse Strength Respiratory Rate 18 20 16 Respiratory Effort / Characteristics Respiratory Depth Blood Pressure 111/60 Blood Pressure [Left Arm] Blood Pressure Mean 77 Blood Pressure Mean [Left Arm] Blood Pressure Position Blood Pressure Position [Left Arm] Pulse Oximetry 94 90 95 Oxygen Delivery Method Oxygen Flow Rate 07/14/19 20:01 07/14/19 20:30 07/14/19 21:00 Temperature Temperature Source Sepsis Recent Fever Within 48 Hours Sepsis New/Unexplained Change in Mental Status Sepsis Action Taken by Nursing Pulse Rate 89 79 77 Pulse Rate [Left] Pulse Rate from SpO2 Sensor 91 H 79 77 Pulse Rhythm Pulse Strength Respiratory Rate 19 17 21 Respiratory Effort / Characteristics Respiratory Depth Blood Pressure 96/52 L 104/69 103/56 L Blood Pressure [Left Arm] Blood Pressure Mean 66 80 71 Blood Pressure Mean [Left Arm] Blood Pressure Position Blood Pressure Position [Left Arm] Pulse Oximetry 90 93 90 Oxygen Delivery Method Oxygen Flow Rate 07/14/19 21:30 07/14/19 22:00 07/14/19 22:30 Temperature Temperature Source Sepsis Recent Fever Within 48 Hours Sepsis New/Unexplained Change in Mental Status Sepsis Action Taken by Nursing Pulse Rate 77 78 81 Pulse Rate [Left] Pulse Rate from SpO2 Sensor 77 79 81 Pulse Rhythm Pulse Strength Respiratory Rate 25 H 18 19 Respiratory Effort / Characteristics Respiratory Depth Blood Pressure 123/62 118/61 114/59 L Blood Pressure [Left Arm] Blood Pressure Mean 82 80 77 Blood Pressure Mean [Left Arm] Blood Pressure Position Blood Pressure Position [Left Arm] Pulse Oximetry 99 99 100 Oxygen Delivery Method Oxygen Flow Rate 07/14/19 22:51 07/14/19 22:59 07/14/19 23:00 Temperature 36.7 C Temperature Source Oral Sepsis Recent Fever Within 48 Hours Sepsis New/Unexplained Change in Mental Status Sepsis Action Taken by Nursing Pulse Rate 81 82 83 Pulse Rate [Left] Pulse Rate from SpO2 Sensor 81 83 Pulse Rhythm Regular Pulse Strength Normal Respiratory Rate 20 18 25 H Respiratory Effort / Characteristics Respiratory Depth Blood Pressure 114/64 114/64 107/62 Blood Pressure [Left Arm] Blood Pressure Mean 80 80 77 Blood Pressure Mean [Left Arm] Blood Pressure Position Lying Blood Pressure Position [Left Arm] Pulse Oximetry 99 99 99 Oxygen Delivery Method Oxygen Flow Rate 2 07/14/19 23:17 Temperature 37.1 C Temperature Source Oral Sepsis Recent Fever Within 48 Hours Sepsis New/Unexplained Change in Mental Status Sepsis Action Taken by Nursing Pulse Rate 82 Pulse Rate [Left] Pulse Rate from SpO2 Sensor Pulse Rhythm Regular Pulse Strength Normal Respiratory Rate 22 Respiratory Effort / Characteristics Respiratory Depth Blood Pressure 121/56 L Blood Pressure [Left Arm] Blood Pressure Mean 77 Blood Pressure Mean [Left Arm] Blood Pressure Position Lying Blood Pressure Position [Left Arm] Pulse Oximetry 98 Oxygen Delivery Method Oxygen Flow Rate Home Medications Current Medication List: was personally reviewed by me Laboratory Data Attestation: I reviewed the patient's lab results. Result diagrams: 07/14/19 20:37 07/14/19 20:37 Lab Results 07/14/19 07/14/19 07/14/19 Range/Units 20:37 20:37 20:37 WBC 45.35 H* (4.8-10.8) K/uL RBC 1.70 L (4.7-6.1) M/uL Hgb 5.5 L* (14.0-18.0) g/dL Hct 16.1 L* (42-52) % MCV 94.7 (80-100) fL MCH 32.4 (25-34) pg MCHC 34.2 (32-36) g/dL RDW Std Deviation 60.3 H (36.4-46.3) fL RDW Coeff of Kamar 17.6 H (11.5-14.5) % Plt Count 12 L* (130-400) K/uL MPV 8.1 (7.4-10.4) fL Neutrophils % (Manual) 5.6 % Lymphocytes % (Manual) 18.4 % Monocytes % (Manual) 10.4 % Blast Cells % (Manual) 65.6 % Neutrophils # (Manual) 2.54 (1.4-6.5) K/uL Total Absolute Neuts 2.54 (1.4-6.5) K/uL Lymphocytes # (Manual) 8.34 H (1.2-3.4) K/uL Total Abs Lymphocytes 8.34 H (1.2-3.4) K/uL Monocytes # (Manual) 4.72 H (0.11-0.59) K/uL Blast Cells # (Man) 29.75 H (0-0) K/uL RBC Morphology Unremarkable PT 12.4 H (9.0-12.0) Seconds INR 1.2 H (0.9-1.1) APTT 40.2 H (21.0-31.0) Seconds PTT Ratio 1.5 Sodium 135 L (136-145) mmol/L Potassium 4.2 (3.5-5.1) mmol/L Chloride 102 (98-107) mmol/L Carbon Dioxide 27 (21-32) mmol/L Anion Gap 6.0 (3-11) BUN 26 H (7-18) mg/dl Creatinine 1.07 (0.6-1.4) mg/dl Est Cr Clr Drug Dosing Not Reportable Est GFR ( Amer) 78.3 Est GFR (Non-Af Amer) 67.5 BUN/Creatinine Ratio 24.1 H (10-20) Glucose 111 H (70-99) mg/dl Calcium 8.8 (8.5-10.1) mg/dl Total Bilirubin 0.6 (0.2-1) mg/dl AST 32 (15-37) U/L ALT 24 (12-78) U/L Alkaline Phosphatase 85 (45-117) U/L Troponin I < 0.015 (0-0.045) ng/ml NT-Pro-B Natriuret Pep 703 (0-900) pg/ml Total Protein 7.8 (6.4-8.2) gm/dl Albumin 2.8 L (3.4-5.0) gm/dl Globulin 5.0 H (2.5-4.0) gm/dl Albumin/Globulin Ratio 0.6 L (0.9-2) Blood Type Antibody Screen Antibody Identification Crossmatch 07/14/19 Range/Units 20:37 WBC (4.8-10.8) K/uL RBC (4.7-6.1) M/uL Hgb (14.0-18.0) g/dL Hct (42-52) % MCV (80-100) fL MCH (25-34) pg MCHC (32-36) g/dL RDW Std Deviation (36.4-46.3) fL RDW Coeff of Kamar (11.5-14.5) % Plt Count (130-400) K/uL MPV (7.4-10.4) fL Neutrophils % (Manual) % Lymphocytes % (Manual) % Monocytes % (Manual) % Blast Cells % (Manual) % Neutrophils # (Manual) (1.4-6.5) K/uL Total Absolute Neuts (1.4-6.5) K/uL Lymphocytes # (Manual) (1.2-3.4) K/uL Total Abs Lymphocytes (1.2-3.4) K/uL Monocytes # (Manual) (0.11-0.59) K/uL Blast Cells # (Man) (0-0) K/uL RBC Morphology PT (9.0-12.0) Seconds INR (0.9-1.1) APTT (21.0-31.0) Seconds PTT Ratio Sodium (136-145) mmol/L Potassium (3.5-5.1) mmol/L Chloride (98-107) mmol/L Carbon Dioxide (21-32) mmol/L Anion Gap (3-11) BUN (7-18) mg/dl Creatinine (0.6-1.4) mg/dl Est Cr Clr Drug Dosing Est GFR ( Amer) Est GFR (Non-Af Amer) BUN/Creatinine Ratio (10-20) Glucose (70-99) mg/dl Calcium (8.5-10.1) mg/dl Total Bilirubin (0.2-1) mg/dl AST (15-37) U/L ALT (12-78) U/L Alkaline Phosphatase (45-117) U/L Troponin I (0-0.045) ng/ml NT-Pro-B Natriuret Pep (0-900) pg/ml Total Protein (6.4-8.2) gm/dl Albumin (3.4-5.0) gm/dl Globulin (2.5-4.0) gm/dl Albumin/Globulin Ratio (0.9-2) Blood Type O Positive Antibody Screen POSITIVE A Antibody Identification Anti-K Crossmatch See Detail Administered Medications Sodium Chloride (Nss 1000ml) 1,000 mls @ 125 mls/hr IV .Q8H STA Stop: 07/15/19 04:09 Last Admin: 07/14/19 21:31 Dose: 125 mls/hr Documented by: [id number] Discontinued Medications Sodium Chloride (Nss 1000ml) 500 mls @ 999 mls/hr IV .Q31M ONE Stop: 07/14/19 20:40 Last Infusion: 07/14/19 22:04 Dose: 0 mls/hr Documented by: [id number] Admin: 07/14/19 21:29 Dose: 999 mls/hr Documented by: [id number] Imaging Data Radiologist's Impression: Radiology results as stated below per my review and the radiologist's interpretation: XR chest 1V portable CLINICAL HISTORY: SOB dyspnea COMPARISON STUDY: 06/21/2019 FINDINGS: Slight chronic blunting right lateral costophrenic angle. Lungs otherwise appear clear. Central catheter in superior vena cava. IMPRESSION: No acute process. The above report was generated using voice recognition software. It may contain grammatical, syntax or spelling errors. Electronically signed by: Jose Armando Arreola M.D. 07/14/2019 8:05 PM ECG Data Indication: SOB/dyspnea Rate (beats per minute): 80 Rhythm: normal sinus Findings: + other (QRS normal ) and + RBBB (Incomplete RBBB); no PAC, no PVC, no ST depression and no ST elevation Comparison ECG Date: no prior available Blood Pressure Blood Pressure Findings: Low blood pressure Blood Pressure Disposition: further management by hospitalist Discharge Plan Visit Data Chief Complaint: Shortness of Breath/Dyspnea Stated Complaint: TROUBLE BREATHING, WEAKNESS ED Provider: Filipe Lopez Discharge Problem: Severe anemia, Thrombocytopenia, AML (acute myeloid leukemia), Weakness Forms Stand Alone Forms: My [facility] Prescriptions Prescriptions: No Action acetaminophen [Tylenol Extra Strength] 500 mg Tablet 1,000 mg PO DIRECTED PRN (Reason: Pain) RF: 0 acyclovir 200 mg capsule 400 mg PO TID RF: 0 sertraline 50 mg tablet 50 mg PO QAM RF: 0 metoprolol tartrate 25 mg tablet 12.5 mg PO BID RF: 0 thiamine mononitrate (vit B1) 100 mg tablet 100 mg PO QAM RF: 0 metformin 500 mg tablet 500 mg PO DAILY 30 Days Qty: 30 RF: 2 Referrals Referrals: Sandro Escobar MD [Primary Care Provider] - The scribe's documentation has been prepared under my direction and personally reviewed by me in its entirety. I confirm that the note above accurately reflects all work, treatment, procedures, and medical decision making performed by me.
--- NOTE | 2019-07-14 23:26 | History and Physical Report ---
DATE OF ADMISSION: 07/14/2019 CHIEF COMPLAINT: Shortness of breath, weakness. HISTORY OF PRESENT ILLNESS: This is a 73-year-old male with past medical history significant for hypertension, AML, status post chemotherapy, chronic anemia, baseline hemoglobin of 8, history of hemolytic anemia, anxiety, mood disorder, past tobacco abuse and severe malnutrition who presents with shortness of breath on exertion, weakness and tiredness and found to have hemoglobin of 5.5, platelets of 12, white count of 44,000 and blasts of 29. The patient was here on 06/21/2019. At that time, his hemoglobin was 5.7 received 3 units of packed red blood cells and his hemoglobin went up to 8.9 and his platelets were in 30-35 range and his white count was 10 and at that time his blast cells went up from 0.5 to 2.4 and the hospitalist called who is his hematology/oncology at [facility] and was advised to follow as an outpatient as soon as possible when get discharged and actually the patient has an appointment next Tuesday with his heme/onco.But right now his laboratories today show hemoglobin of 5.5, white count of 45, . Heme/oncologist on-call at [facility], , recommended to give 2 units of packed red blood cells tonight and transfer tomorrow if the patient is agreeable for treatment. The patient states he is okay to go tomorrow. Currently, resting comfortable and hemodynamically stable. Denies any blood in stools or black stools. Denies any hematuria. His appetite is okay. Lives alone, walks with a walker. One of the sons lives close by. Denies any fever or chills. No cough. No headache. No dizziness. No blurred vision. No runny nose. No sore throat. No chest pain. No nausea. No vomiting. No abdominal pain. No rash. ALLERGIES: TETANUS TOXOID. PAST MEDICAL HISTORY: As mentioned above. PAST SURGICAL HISTORY: Tunneled catheter, adenoidectomy, tonsillectomy and inguinal hernia repair. MEDICATIONS: Currently, the patient is on Tylenol extra strength p.r.n., acyclovir 400 mg p.o. t.i.d., metformin 500 mg p.o. daily, metoprolol 12.5 mg p.o. b.i.d., Zoloft 50 mg p.o. daily and thiamine 100 mg daily. FAMILY HISTORY: On file. SOCIAL HISTORY: Lives alone. Former smoker, smoked as a teenager. Alcohol rarely. No drug use. REVIEW OF SYMPTOMS: As per HPI. Rest of review of symptoms negative. PHYSICAL EXAMINATION: GENERAL: The patient is weak and frail, not in acute distress. VITAL SIGNS: Temperature 37, pulse 77, respiratory rate 21, blood pressure 123/62 and oxygen 99% on room air. HEENT: No pallor. No icterus. Pupils are equal, round and reactive to light. NECK: No JVD. No neck masses. No carotid bruits. CARDIOVASCULAR: S1, S2 heard. Regular rate and rhythm. No murmur. No gallop. RESPIRATORY SYSTEM: Normal AP diameter. No accessory muscle use. No wheezing. No crackles. ABDOMEN: Soft. Bowel sounds present. Nontender. No distention. CENTRAL NERVOUS SYSTEM: Alert and awake and oriented. Obeys commands. Moves his extremities. EXTREMITIES: No edema. No erythema. LABORATORY DATA: WBC 45, hemoglobin 5.5, hematocrit 16.1 and platelets 12. PT 12.4, INR 1.2 and APTT 40.2. Sodium 135, potassium 4.2, chloride 102, bicarbonate 27, BUN 26, creatinine 1.07, serum glucose 111, calcium 8.8, total bilirubin 0.6, AST 32, ALT 24 and alkaline phosphatase 84. Troponin I less than 0.015. Brain natriuretic peptide 703. IMAGING: Chest x-ray, no acute process. Electrocardiogram, normal sinus rhythm, rate of 80, incomplete right bundle-branch block and no significant change was found. ASSESSMENT AND PLAN: This is a 73-year-old male who presents with a history of acute myeloid leukemia who presents with Anemia , thrombocytopenia and blast crisis. 1. Acute myeloid leukemia, status post chemo, he gets frequent packed red blood cells transfusions presents with shortness of breath and weakness and found to have hemoglobin 5.5, white count of 45 and platelets of 12. patient seems to be in is in blast crisis. [facility] Hematology/Oncology, doctor on-call arnie, advised to give 2 units of packed red blood cells and transfer tomorrow. The patient is agreeable for treatment and transfer. We will give 2 units of packed red blood cells.Follow labs 2. Thrombocytopenia, platelets 12, . To give one unit of plateletpheresis. and monitor on Med/Surg Tele. We will give a dose of I.V. Lasix in between transfusions and Tylenol prior to transfusion. 3. History of hypertension. Continue on metoprolol. 4. History of diabetes HbA1c was 7.3 on last admission. Hold metformin. We will place him on insulin sliding scale. 5. Lung nodule, needs followup, 3 mm in the left lower lobe . needs 1 year followup. 6. Depression. Continue Zoloft. 7. Deep venous thrombosis prophylaxis, sequential compression devices for now. 8. Disposition: Admit to Med/Surg tele. Level 1 full code as per discussion with the patient. Plan for transfer to [facility] tomorrow. LO
[2019-07-15] MEDS ORDERED: SODIUM CHLORIDE 0.9% 250 ML IV PRN (01:26)
[2019-07-15] MEDS ORDERED: ONDANSETRON INJ 2 MG/ML 2 ML VIAL IV PRN (01:26)
[2019-07-15] MEDS ORDERED: NITROGLYCERIN SL 0.4 MG/TAB TAB SL PRN (01:26)
[2019-07-15] MEDS ORDERED: GLUCOSE 10 TABS/TUBE PO PRN (01:45)
[2019-07-15] MEDS ORDERED: DEXTROSE 50% 50 ML SYRINGE IV PRN (01:45)
[2019-07-15] MEDS ORDERED: GLUCOSE 40% GEL 15 GM TUBE PO PRN (01:45)
[2019-07-15] MEDS ORDERED: CARBOHYDRATES FOR HYPOGLYCEMIA PO PRN (01:45)
[2019-07-15] MEDS ORDERED: GLUCAGON FOR INJ 1 MG VIAL SQ PRN (01:45)
[2019-07-15] MEDS: PATIENT'S HEIGHT AND/OR WEIGHT NEEDED SCH ×2 (01:56→05:59)
[2019-07-15] MEDS ORDERED: FUROSEMIDE 20 MG in SYRINGE 0 ML IV ONE (02:00)
[2019-07-15] MEDS: ACETAMINOPHEN 325 MG TAB PO PRN ×2 (02:21→07:52)
[2019-07-15] MEDS: ACYCLOVIR 200 MG CAP PO SCH ×2 (07:55→14:00)
--- NOTE | 2019-07-15 08:13 | Hospitalist Progress Note ---
Date of Service July 15, 2019 Assessment & Plan (1) AML (acute myeloid leukemia): Acute Myeloid Leukemia with blast crisis Anemia (history of hemolytic anemia) Thrombocytopenia -07/14/19 admission white blood cell counts of 45 thousand -07/14/19 admission Hemoglobin of 5.5 with hematocrit 16.1% -07/14/19 admission platelets of 12 thousand -Night time medical Dr. Scott called [facility] where patient follows for the oncology treatments and spoke with Dr. Mcdaniel who advised blood transfusions before transfer to [facility] -patient is s/p 1 unit of platelets, and 1 unit of PRBC as of AM of 07/15/19 and is due for 2nd unit of PRBC -plan for repeat CBC before sending to [facility] History of hypertension -blood pressure stable -Continue home dose metoprolol tartrate 12.5 mg PO BID Diabetes mellitus Type 2 without lamination inspector current of insulin -HbA1c was 7.3 on 06/21/19 -Hold metformin -on sliding scale insulin while inpatient Left Lung Nodule -Solid 3 mm left lower lobe nodule on CTA on 06/21/19 Depression -Continue Zoloft. Disposition: Daytime Hospitalist medical doctor, Dr. Calvin Mann, coordinating transfer to [facility] after speaking with transfer line and confirming that Dr. Mcdaniel is accepting physician Subjective Patient seen and examined at bedside. He is s/p 1 unit of platelets and 1 unit PRBC with 2nd unit PRBC to be given. Patient denies acute shortness of breath currently. he is breathing on room air. No chest pain. no abdominal pain. no vomiting. no dizziness. no fever. He affirms the plans to be transferred to [facility] for further treatment of the Acute Myeloid Leukemia with blast crisis after the blood transfusions are completed. Hospitalist physician spoke with transfer center at [place] and Dr. Mcdaniel is the accepting physician Physical Exam Constitutional: comfortable Eyes: PERRL, conjunctivae normal, anicteric sclerae EOM intact bilaterally ENMT: external ear and nose normal, oropharynx normal Neck: normal visual inspection Respiratory: normal respiratory effort, lungs clear to auscultation Gastrointestinal (Abdomen): normal bowel sounds, soft, nontender, no hepatosplenomegaly Musculoskeletal: Head/Neck/Chest: normocephalic and head atraumatic Neurologic: PERRL, EOMI, accommodation nl, no face palsy, no dysarthria CN's II-XI intact bilaterally Psychiatric: A+Ox3, euthymic affect Results & Data Vital Signs (Past 12 Hours) Vital Signs Temp Pulse Pulse Resp BP BP Pulse Ox 07/15/19 07:59 36.6 C 74 16 129/67 96 07/15/19 07:48 36.8 C 69 16 115/64 94 07/15/19 06:07 36.4 C L 68 14 127/76 94 07/15/19 05:30 36.3 C L 67 18 117/64 93 07/15/19 04:30 36.5 C 67 18 114/57 L 92 07/15/19 04:00 36.6 C 70 14 108/54 L 91 07/15/19 03:30 36.8 C 73 16 108/49 L 94 07/15/19 03:15 37.2 C 74 18 103/46 L 93 07/15/19 02:58 37.0 C 76 16 115/53 L 93 07/15/19 02:45 74 07/15/19 02:00 36.7 C 77 16 128/55 L 94 07/15/19 00:15 73 22 118/59 L 99 07/15/19 00:00 76 19 118/64 99 07/14/19 23:45 78 19 121/56 L 97 07/14/19 23:32 37 C 81 20 119/62 99 07/14/19 23:30 80 21 119/62 98 07/14/19 23:19 82 22 121/56 L 98 07/14/19 23:17 37.1 C 82 22 121/56 L 98 07/14/19 23:15 82 26 H 111/60 98 07/14/19 23:00 83 25 H 107/62 99 07/14/19 22:59 36.7 C 82 18 114/64 99 07/14/19 22:51 81 20 114/64 99 07/14/19 22:30 81 19 114/59 L 100 07/14/19 22:00 78 18 118/61 99 07/14/19 21:30 77 25 H 123/62 99 07/14/19 21:00 77 21 103/56 L 90 07/14/19 20:30 79 17 104/69 93
--- NOTE | 2019-07-15 08:37 | Discharge Summary ---
Date of Service July 15, 2019 Admission HPI Per Admitting Provider DATE OF ADMISSION: 07/14/2019 CHIEF COMPLAINT: Shortness of breath, weakness. HISTORY OF PRESENT ILLNESS: This is a 73-year-old male with past medical history significant for hypertension, AML, status post chemotherapy, chronic anemia, baseline hemoglobin of 8, history of hemolytic anemia, anxiety, mood disorder, past tobacco abuse and severe malnutrition who presents with shortness of breath on exertion, weakness and tiredness and found to have hemoglobin of 5.5, platelets of 12, white count of 44,000 and blasts of 29. The patient was here on 06/21/2019. At that time, his hemoglobin was 5.7 received 3 units of packed red blood cells and his hemoglobin went up to 8.9 and his platelets were in 30-35 range and his white count was 10 and at that time his blast cells went up from 0.5 to 2.4 and the hospitalist called who is his hematology/oncology at [facility] and was advised to follow as an outpatient as soon as possible when get discharged and actually the patient has an appointment next Tuesday with his heme/onco.But right now his laboratories today show hemoglobin of 5.5, white count of 45, . Heme/oncologist on[place]call at [facility] [place], , recommended to give 2 units of packed red blood cells tonight and transfer tomorrow if the patient is agreeable for treatment. The patient states he is okay to go tomorrow. Currently, resting comfortable and hemodynamically stable. Denies any blood in stools or black stools. Denies any hematuria. His appetite is okay. Lives alone, walks with a walker. One of the sons lives close by. Denies any fever or chills. No cough. No headache. No dizziness. No blurred vision. No runny nose. No sore throat. No chest pain. No nausea. No vomiting. No abdominal pain. No rash. ALLERGIES: TETANUS TOXOID. PAST MEDICAL HISTORY: As mentioned above. PAST SURGICAL HISTORY: Tunneled catheter, adenoidectomy, tonsillectomy and inguinal hernia repair. MEDICATIONS: Currently, the patient is on Tylenol extra strength p.r.n., acyclovir 400 mg p.o. t.i.d., metformin 500 mg p.o. daily, metoprolol 12.5 mg p.o. b.i.d., Zoloft 50 mg p.o. daily and thiamine 100 mg daily. FAMILY HISTORY: On file. SOCIAL HISTORY: Lives alone. Former smoker, smoked as a teenager. Alcohol rarely. No drug use. REVIEW OF SYMPTOMS: As per HPI. Rest of review of symptoms negative. Admission Exam Per Admitting Provider PHYSICAL EXAMINATION: GENERAL: The patient is weak and frail, not in acute distress. VITAL SIGNS: Temperature 37, pulse 77, respiratory rate 21, blood pressure 123/62 and oxygen 99% on room air. HEENT: No pallor. No icterus. Pupils are equal, round and reactive to light. NECK: No JVD. No neck masses. No carotid bruits. CARDIOVASCULAR: S1, S2 heard. Regular rate and rhythm. No murmur. No gallop. RESPIRATORY SYSTEM: Normal AP diameter. No accessory muscle use. No wheezing. No crackles. ABDOMEN: Soft. Bowel sounds present. Nontender. No distention. CENTRAL NERVOUS SYSTEM: Alert and awake and oriented. Obeys commands. Moves his extremities. EXTREMITIES: No edema. No erythema. LABORATORY DATA: WBC 45, hemoglobin 5.5, hematocrit 16.1 and platelets 12. PT 12.4, INR 1.2 and APTT 40.2. Sodium 135, potassium 4.2, chloride 102, bicarbonate 27, BUN 26, creatinine 1.07, serum glucose 111, calcium 8.8, total bilirubin 0.6, AST 32, ALT 24 and alkaline phosphatase 84. Troponin I less than 0.015. Brain natriuretic peptide 703. IMAGING: Chest x-ray, no acute process. Electrocardiogram, normal sinus rhythm, rate of 80, incomplete right bundle-branch block and no significant change was found. Principal Diagnosis Acute Myeloid Leukemia with blast crisis; Anemia (history of hemolytic anemia); Thrombocytopenia; Diabetes mellitus Type 2 without roasterman current of insulin; History of hypertension; history of depression, left lung nodule Discharge Exam Constitutional comfortable Eyes PERRL, conjunctivae normal, anicteric sclerae EOM intact bilaterally ENMT external ear and nose normal, oropharynx normal Neck normal visual inspection Respiratory normal respiratory effort, lungs clear to auscultation Gastrointestinal (Abdomen) normal bowel sounds, soft, nontender, no hepatosplenomegaly Musculoskeletal Head/Neck/Chest: normocephalic and head atraumatic Neurologic PERRL, EOMI, accommodation nl, no face palsy, no dysarthria CN's II-XI intact bilaterally Psychiatric A+Ox3, euthymic affect Discharge Data Allergies Allergy/AdvReac Type Severity Reaction Status Date / Time Cephalosporins Allergy Unknown Unknown Verified 07/14/19 21:32 tetanus toxoid, adsorbed Allergy Unknown Unknown Verified 07/14/19 21:32 Consultations 07/14/19 21:15 ED Decision to Admit Stat 07/15/19 01:26 Consult Case Management - Discharge Planning Routine 07/15/19 08:33 Burn CD for patient Routine Hospital Course (1) AML (acute myeloid leukemia): Acute Myeloid Leukemia with blast crisis Anemia (history of hemolytic anemia) Thrombocytopenia -07/14/19 admission white blood cell counts of 45 thousand -07/14/19 admission Hemoglobin of 5.5 with hematocrit 16.1% -07/14/19 admission platelets of 12 thousand -Night time medical Dr. Scott called [facility] where patient follows for the oncology treatments and spoke with Dr. Mcdaniel who advised blood transfusions before transfer to [facility] -patient is s/p 1 unit of platelets, and 1 unit of PRBC as of AM of 07/15/19 and is due for 2nd unit of PRBC -plan for repeat CBC before sending to [facility] History of hypertension -blood pressure stable -Continue home dose metoprolol tartrate 12.5 mg PO BID Diabetes mellitus Type 2 without senior care current of insulin -HbA1c was 7.3 on 06/21/19 -Hold metformin -on sliding scale insulin while inpatient Left Lung Nodule -Solid 3 mm left lower lobe nodule on CTA on 06/21/19 Depression -Continue Zoloft. Disposition: Daytime Hospitalist medical doctor, Dr. Calvin Mann, coordinating transfer to [facility] after speaking with transfer line and confirming that Dr. Mcdaniel is accepting physician Total Time Total Time Spent Total Time Spent (In Minutes): 40 minutes Total Time Includes: Examination of the Patient, Discharge Planning, Medication Reconciliation and Communication With Other Providers Discharge Plan Discharge Items Patient Disposition: Transfer Acute Care Hospital Reason For Visit: SOB Discharge Diagnosis: Acute Myeloid Leukemia with blast crisis; Anemia (history of hemolytic anemia); Thrombocytopenia; Diabetes mellitus Type 2 without senior care current of insulin; History of hypertension; history of depression, left lung nodule Activity: Per Instructions section Non-emergency contact: Oncologist Call non-emergency contact if: you have any medication questions Follow-up/Referrals: Sandro Escobar MD [Primary Care Provider] - Diet: Carb Consistent or DM2 Addtl Attending Provider Instructions: Acute Myeloid Leukemia with blast crisis Anemia (history of hemolytic anemia) Thrombocytopenia -07/14/19 admission white blood cell counts of 45 thousand -07/14/19 admission Hemoglobin of 5.5 with hematocrit 16.1% -07/14/19 admission platelets of 12 thousand -Night time medical Dr. Scott called [facility] where patient follows for the oncology treatments and spoke with Dr. Mcdaniel who advised blood transfusions before transfer to [facility] -patient is s/p 1 unit of platelets, and 1 unit of PRBC as of AM of 07/15/19 and is due for 2nd unit of PRBC -plan for repeat CBC before sending to [facility] History of hypertension -blood pressure stable -Continue home dose metoprolol tartrate 12.5 mg PO BID Diabetes mellitus Type 2 without senior care current of insulin -HbA1c was 7.3 on 06/21/19 -Hold metformin -on sliding scale insulin while inpatient Left Lung Nodule -Solid 3 mm left lower lobe nodule on CTA on 06/21/19 Depression -Continue Zoloft. Disposition: Daytime Hospitalist medical doctor, Dr. Calvin Mann, coordinating transfer to [facility] after speaking with transfer line and confirming that Dr. Mcdaniel is accepting physician Pending Studies at Discharge: Yes Studies:: CBC repeat Stand-Alone Forms: My [facility] Skilled Items Patient informed of condition?: Yes DNR: No Discharge Level of Care: Other Communicable Disease: No Discharge Prognosis: Stable Lines: None Urinary Catheter: No Medications and DC Order Prescriptions: Continued acyclovir 200 mg capsule 400 mg PO TID RF: 0 sertraline 50 mg tablet 50 mg PO QAM RF: 0 metoprolol tartrate 25 mg tablet 12.5 mg PO BID RF: 0 thiamine mononitrate (vit B1) 100 mg tablet 100 mg PO QAM RF: 0 metformin 500 mg tablet 500 mg PO DAILY 30 Days Qty: 30 RF: 2 Discontinued acetaminophen [Tylenol Extra Strength] 500 mg Tablet 1,000 mg PO DIRECTED PRN (Reason: Pain) RF: 0 Discharge Orders: Discharge Order (Routine); Ordered 07/15/19 Ordered By: Calvin Mann Admission Data Admit Date/Time: 07/14/19 22:38 Attending Provider: Calvin Mann Admit Provider: Srinath Scott Primary Care Provider: Sandro Escobar Other Providers: Srinath Scott
[2019-07-15] MEDS ORDERED: METOPROLOL TARTRATE 25 MG TAB PO SCH (09:00)
[2019-07-15] MEDS ORDERED: SERTRALINE HCL 50 MG TABLET PO SCH (09:00)
[2019-07-15] MEDS ORDERED: THIAMINE HCL 100 MG TAB PO SCH (09:00)
[2019-07-15] MEDS: INSULIN ASPART 100 UNITS/ML 3 ML PEN SC SCH ×3 (09:25→17:56)
[2019-07-15] MEDS ORDERED: HEPARIN 100 UNIT/ML 5ML FLUSH ONE (10:53)
[2019-07-15 12:19] LABS: Hematocrit (blood only) 22.1 % (42-52); Hemoglobin 7.5 g/dL (14.0-18.0); Mean Corpuscular Hgb Conc 33.9 g/dL (32-36); Mean Corpuscular Volume 91.3 fL (80-100); Mean Platelet Volume 7.9 fL (7.4-10.4); Platelet Count 11 K/uL (130-400); RDW Coefficient of Variation 16.8 % (11.5-14.5); Red Blood Count 2.42 M/uL (4.7-6.1); White Blood Count 42.87 K/uL (4.8-10.8)
[2019-07-15 12:40] LABS: BUN Creatinine Ratio 24.2 (10-20); Calcium 8.5 mg/dl (8.5-10.1); Creatinine Clr Calc Pharmacy 50.2 ml/min; Est GFR (African American) 89.3; Potassium 3.6 mmol/L (3.5-5.1)
[2019-07-15 13:12] LABS: ALC (manual) 5.14 K/uL (1.2-3.4); ANC (manual) 1.71 K/uL (1.4-6.5); Blast # (manual) 30.44 K/uL (0-0); Eosinophils # (manual) 0.43 K/uL (0-0.5); Lymphocytes # (manual) 5.14 K/uL (1.2-3.4); Metamyelocytes # (manual) 0.43 K/uL (0-0); Monocytes # (manual) 4.29 K/uL (0.11-0.59); Myelocytes # (manual) 0.43 K/uL (0-0); Neutrophils # (manual) 1.71 K/uL (1.4-6.5); RBC Morphology Unremarkable
[2019-07-16 08:07] LABS: Estimated Average Glucose 143 mg/dl; Hemoglobin A1C 6.6 % (4.5-5.6)
== END 2019-07-15 18:20 | disposition short-term general hospital (02) | DRG 834 ==
LOC: ED 19:27 → 2N 22:38